=== PATIENT | female | born 1930 | race Caucasian/White ===

== ENCOUNTER 2017-11-02 09:35 | Emergency (ER) | payer MEDICARE ==
[2017-11-02] MEDS: SODIUM CHLORID 0.9% 500 ML INJ 500 ML IV (11:53)
[2017-11-02 11:56] LABS: AUTOMATED NEUTROPHIL # 7.4 TH/MM3 (1.8-7.7); BASOPHIL # 0.1 TH/MM3 (0-0.2); BASOPHIL % 0.6 % (0.0-2.0); EOSINOPHIL # 0.3 TH/MM3 (0-0.4); EOSINOPHIL % 2.6 % (0.0-4.0); HEMATOCRIT 41.8 % (35.0-46.0); HEMO FLAGS DIFF FINAL; HEMOGLOBIN 13.7 GM/DL (11.6-15.3); LYMPH % 15.4 % (9.0-44.0); LYMPHOCYTE # 1.6 TH/MM3 (1.0-4.8); MEAN CELL VOLUME 90.1 FL (80.0-100.0); MEAN CORPUSCULAR HEMOGLOBIN 29.5 PG (27.0-34.0); MEAN CORPUSCULAR HGB CONC 32.8 % (32.0-36.0); MEAN PLATELET VOLUME 8.6 FL (7.0-11.0); NEUT % 71.4 % (16.0-70.0); PLATELET COUNT 266 TH/MM3 (150-450); RED BLOOD COUNT 4.64 MIL/MM3 (4.00-5.30); RED CELL DISTRIBUTION WIDTH 13.7 % (11.6-17.2); WHITE BLOOD COUNT 10.3 TH/MM3 (4.0-11.0)
[2017-11-02 12:01] LABS: BACTERIA, URINE RARE /hpf; BLOOD, URINE TRACE (NEG); COMMENT (UR) CULT NOT INDICATED; CULTURE IF INDICATED CULT NOT INDICATED; GLUCOSE,URINE NEG (NEG); KETONE, URINE TRACE mg/dL (NEG); MUCUS URINE FEW /lpf (OCC); NITRITE,URINE NEG (NEG); PH, URINE 5.5 (5.0-8.5); SQUAMOUS EPITHELIAL CELL URINE 5 /hpf (0-5); URINE COLOR YELLOW (YELLW/STRAW); URINE LEUKOCYTE ESTERASE NEG (NEG)
[2017-11-02 12:09] LABS: BILIRUBIN, URINE NEG (NEG); INTERNATIONAL NORMALIZED RATIO 1.1 RATIO; PROTHROMBIN TIME - PATIENT 10.9 SEC (9.8-11.6)
[2017-11-02 12:11] LABS: ALBUMIN 3.6 GM/DL (3.4-5.0); ALT (GPT) 23 U/L (10-53); ANION GAP 9 MEQ/L (5-15); AST (GOT) 21 U/L (15-37); BICARBONATE 28.2 MEQ/L (21.0-32.0); BLOOD UREA NITROGEN 20 MG/DL (7-18); CALCIUM 8.5 MG/DL (8.5-10.1); CHLORIDE 104 MEQ/L (98-107); CREATININE 1.17 MG/DL (0.50-1.00); GLOMERULAR FILTRATION RATE 44 ML/MIN (>89); GLUCOSE,RANDOM 90 MG/DL (74-106); MAGNESIUM 2.1 MG/DL (1.5-2.5); POTASSIUM 3.6 MEQ/L (3.5-5.1); SODIUM (NA) 141 MEQ/L (136-145)
[2017-11-02 12:15] LABS: ALKALINE PHOSPHATASE 90 U/L (45-117); CREATINE KINASE 161 U/L (26-192); TOTAL BILIRUBIN ADULT 0.9 MG/DL (0.2-1.0); TOTAL PROTEIN 7.5 GM/DL (6.4-8.2); TROPONIN I LESS THAN 0.02 NG/ML (0.02-0.05)
[2017-11-02 12:20] LABS: B-TYPE NATRIURETIC PEPTIDE 364 PG/ML (0-100)
[2017-11-02 12:27] LABS: CKMB 4.6 NG/ML (0.5-3.6)
[2017-11-02] MEDS: FUROSEMIDE 40 MG/4 ML VIAL IV PUSH (13:18)
== END 2017-11-02 15:05 | disposition home or self-care (01) ==
LOC: NEPC 09:35
DX: K59.00 Constipation, unspecified (principal); I48.91 Unspecified atrial fibrillation; I11.0 Hypertensive heart disease with heart failure; I50.23 Acute on chronic systolic (congestive) heart failure; I25.2 Old myocardial infarction; Z79.01 Long term (current) use of anticoagulants; Z87.891 Personal history of nicotine dependence
CPT/HCPCS: 71045; 80053; 81001; 82550; 82552; 83735; 83880; 84484; 85025; 85610; 85730; 87040; 93005; 96361; 96374; 99285-25

== ENCOUNTER 2017-12-07 16:10 | Inpatient (IN) | payer MEDICARE ==
[~2017-12-07] VITALS: Ht 154.9 cm; Wt 83.7 kg
[~2017-12-07 16:10] MED LIST: ECOT81TA2 PO; FURO1TAB60 PO; FURO1TAB93 PO; METO100T PO; POTA-243 PO; XARE20TA PO
[2017-12-07 16:20] VITALS: BP 123/57; PULSE 112; RESP 24; TEMP 97.8; O2SAT 94
--- NOTE | 2017-12-07 16:41 | PD ---
HPI Chief Complaint: Respiratory Symptoms Time Seen by Provider: 16:40 Travel History International Travel<30 days: No Contact w/Intl Traveler<30days: No Traveled to known affect area: No History of Present Illness HPI 87-year-old female came to the emergency room brought by her daughter with history of progressive shortness of breath for past 2 weeks. Patient was diagnosed with congestive heart failure by her primary care weeks ago and was started on Lasix. Daughter said initially it was 120 mg a day and after few days when she started feeling better was brought down to 80 mg a by her claims coordinator. Also she was diagnosed with A. fib and was started on Xarelto 3 weeks ago. She started having dark tarry stool because of which the claims coordinator wanted her to be seen by GI specialist. She was supposed to go back and see the claims coordinator tomorrow and has a GI appointment in another couple days. However since her condition was not looking good the daughter decided to bring her to the emergency room today. After being brought from the triage when she was moved from the wheelchair to the stretcher patient started going to severe respiratory distress and started tripoding. She denies any chest pain. She was put on oxygen and after laying still for a few minutes her bleeding started to improve. No history of fever or chills. [facility] Past Medical History Narrative Medical List of her past medical, surgical, social and family history is reviewed from the nursing note. Arthritis: Yes Asthma: No Blood Disorders: No Anxiety: No Depression: No Heart Rhythm Problems: No Cancer: Yes (SKIN CANCER) Cardiac Catheterization: Yes Cardiovascular Problems: Yes High Cholesterol: Yes Chest Pain: No Congestive Heart Failure: Yes COPD: No Cerebrovascular Accident: No Diabetes: No Diminished Hearing: No GERD: Yes Genitourinary: Yes (STRESS INCONTINENCE) Headaches: Yes Hepatitis: No Hiatal Hernia: No Hypertension: Yes Neurologic: Yes Psychiatric: No Respiratory: Yes Migraines: No Myocardial Infarction: Yes (17 years ago) Seizures: No Sleep Apnea: No Ulcer: No Menopausal: Yes Past Surgical History AICD: No Appendectomy: Yes Cholecystectomy: Yes Pacemaker: No Other Surgery: Yes (WILIAN) Social History Alcohol Use: No Tobacco Use: No (QUIT 15 YEARS AGO) Substance Use: No Allergies-Medications (Allergen,Severity, Reaction): Coded Allergies: aspirin (Unverified Allergy, Severe, 12/07/17) codeine (Unverified Allergy, Severe, 12/07/17) morphine (Unverified Allergy, Severe, 12/07/17) Comments List of her allergies reviewed from the nursing note. Reported Meds & Prescriptions Reported Meds & Active Scripts Active Lasix (Furosemide) 40 Mg Tab 40 Mg PO BID Take 40 mg in the morning and 40 mg around 2 PM. Reported Potassium Chloride ER (Potassium Chloride) 20 Meq Tab 20 Meq PO BID Metoprolol Tartrate 100 Mg Tab 100 Mg PO BID Ecotrin Low Strength (Aspirin) 81 Mg Tabdr 81 Mg PO DAILY Narrative Medication List of her home medications reviewed from the nursing note. Review of Systems Except as stated in HPI: all other systems reviewed are Neg Respiratory: Positive: Shortness of Breath Gastrointestinal: Positive: Hematochezia Physical Exam Narrative GENERAL: Awake, alert, elderly, frail, significant respiratory distress SKIN: Focused skin assessment warm/dry. HEAD: Atraumatic. Normocephalic. EYES: Pupils equal and round. No scleral icterus. No injection or drainage. ENT: No nasal bleeding or discharge. Mucous membranes pink and moist. NECK: Trachea midline. No JVD. CARDIOVASCULAR: Regular rate and rhythm. No murmur appreciated. RESPIRATORY: Respiratory distress with accessory muscles of respirations use. Bibasilar crackles GASTROINTESTINAL: Abdomen soft, non-tender, nondistended. Hepatic and splenic margins not palpable. MUSCULOSKELETAL: No obvious deformities. No clubbing. No cyanosis. Right leg edema NEUROLOGICAL: Awake and alert. No obvious cranial nerve deficits. Motor grossly within normal limits. Normal speech. PSYCHIATRIC: Appropriate mood and affect; insight and judgment normal. Data Data Last Documented VS Vital Signs Date Time Temp Pulse Resp B/P (MAP) Pulse Ox O2 Delivery O2 Flow Rate FiO2 12/07/17 16:57 100 Nasal Cannula 3.00 12/07/17 16:46 98.2 75 32 129/59 (82) Orders Orders Complete Blood Count With Diff (12/07/17 16:43) Basic Metabolic Panel (Bmp) (12/07/17 16:43) B-Type Natriuretic Peptide (12/07/17 16:43) Prothrombin Time / Inr (Pt) (12/07/17 16:43) Troponin I (12/07/17 16:43) Blood Culture (12/07/17 16:43) Iv Access Insert/Monitor (12/07/17 16:43) Electrocardiogram (12/07/17 16:43) Ecg Monitoring (12/07/17 16:43) Oximetry (12/07/17 16:43) Oxygen Administration (12/07/17 16:43) Chest, Single Ap (12/07/17 16:43) Sodium Chloride 0.9% Flush (Ns Flush) (12/07/17 16:45) Type And Screen (12/07/17 16:43) Arterial Blood Gas (Abg) (12/07/17 ) Us Leg Venous Doppler (12/07/17 ) Admit Order (Ed Use Only) (12/07/17 18:40) Labs Laboratory Tests Test 12/07/17 16:55 12/07/17 17:27 White Blood Count 11.2 TH/MM3 Red Blood Count 3.41 MIL/MM3 Hemoglobin 9.8 GM/DL Hematocrit 29.6 % Mean Corpuscular Volume 86.9 FL Mean Corpuscular Hemoglobin 28.8 PG Mean Corpuscular Hemoglobin Concent 33.1 % Red Cell Distribution Width 14.0 % Platelet Count 377 TH/MM3 Mean Platelet Volume 7.6 FL Neutrophils (%) (Auto) 70.7 % Lymphocytes (%) (Auto) 14.5 % Monocytes (%) (Auto) 12.1 % Eosinophils (%) (Auto) 2.0 % Basophils (%) (Auto) 0.7 % Neutrophils # (Auto) 7.9 TH/MM3 Lymphocytes # (Auto) 1.6 TH/MM3 Monocytes # (Auto) 1.4 TH/MM3 Eosinophils # (Auto) 0.2 TH/MM3 Basophils # (Auto) 0.1 TH/MM3 CBC Comment DIFF FINAL Differential Comment Prothrombin Time 10.7 SEC Prothromb Time International Ratio 1.1 RATIO Blood Urea Nitrogen 23 MG/DL Creatinine 1.66 MG/DL Random Glucose 142 MG/DL Calcium Level 8.8 MG/DL Sodium Level 138 MEQ/L Potassium Level 3.6 MEQ/L Chloride Level 100 MEQ/L Carbon Dioxide Level 30.5 MEQ/L Anion Gap 8 MEQ/L Estimat Glomerular Filtration Rate 29 ML/MIN Troponin I LESS THAN 0.02 NG/ML B-Type Natriuretic Peptide 453 PG/ML Blood Gas Puncture Site RT RADIAL Blood Gas Patient Temperature 98.6 Blood Gas HCO3 29 mmol/L Blood Gas Base Excess 4.6 mmol/L Blood Gas Oxygen Saturation 96 % Arterial Blood pH 7.41 Arterial Blood Partial Pressure CO2 46 mmHg Arterial Blood Partial Pressure O2 111 mmHG Arterial Blood Oxygen Content 12.4 Vol % Arterial Blood Carboxyhemoglobin 1.9 % Arterial Blood Methemoglobin 0.6 % Blood Gas Hemoglobin 9.1 G/DL Oxygen Delivery Device NASAL CANNULA Blood Gas Liter Flow 3 L/M MDM Medical Decision Making Medical Screen Exam Complete: Yes Emergency Medical Condition: Yes Medical Record Reviewed: Yes Interpretation(s) Twelve-lead EKG was reviewed by me. A. fib, left bundle branch block, left axis deviation. Heart rate of 94 bpm Differential Diagnosis Congestive heart failure, ACS, non-STEMI, pneumonia, pleural effusion Narrative Course 5:54 PM blood test results are pending. ABG is within acceptable limit. Chest x-ray shows a small right pleural effusion. Patient will need to be admitted. Patient stopped taking Xarelto due to the GI bleed. I will order an ultrasound for the right lower extremity to rule out DVT. Procedures EKG Prior to Arrival: No Diagnosis Primary Impression: Respiratory distress Additional Impressions: A-fib Qualified Codes: I48.1 - Persistent atrial fibrillation Congestive heart failure Qualified Codes: I50.9 - Heart failure, unspecified Failure of outpatient treatment GI bleed Qualified Codes: K92.2 - Gastrointestinal hemorrhage, unspecified Admitting Information Admitting Physician Requests: Admit Scripts Pantoprazole (Protonix) 40 Mg Tab 40 MG PO DAILY for Ulcer Prevention, #30 TAB 0 Refills Prov: Libra Lilly 12/10/17 Oxygen tank (Oxygen tank) 1 Ea Tank LITER JOE.CANULA CONTINUOUS for HYPOXEMIA PREVENTION, #2 Oxygen Concentrator Portable Gaseous 2 L/min via Nasal Cannula Continuous For 1 month Prov: Libra Lilly 12/09/17 Oxygen (O2) (Oxygen (O2)) Device LITER JOE.CANULA CONTINUOUS for Prevent Hypoxemia, #2 Oxygen Concentrator Portable Gaseous 2 L/min via Nasal Canula Continuous For 1 month Prov: Libra Lilly 12/09/17 Walker with Front Wheels (Walker with Front Wheels) 1 Mis Mis EA .XX DIRECTED, #1 0 Refills Prov: Libra Lilly 12/09/17 Brant Mir MD Dec 07, 2017 16:41
[2017-12-07] MEDS ORDERED: SODIUM CHLORIDE 0.9% FLUSH 10 ML FLUSH IVF PRN (16:45)
[2017-12-07 16:46] VITALS: BP 129/59; PULSE 75; RESP 32; TEMP 98.2; O2SAT 100
[2017-12-07] MEDS ORDERED: ASPI-147 PO (17:02)
[2017-12-07] MEDS ORDERED: POTA-163 PO (17:02)
[2017-12-07] MEDS ORDERED: METO100T PO (17:02)
--- NOTE | 2017-12-07 17:05 | RADRPT ---
EXAM DATE/TIME: 12/07/2017 16:54 [facility] COMPARISON: CHEST SINGLE AP, November 02, 2017, 11:21. INDICATIONS : Short of breath and weakness for 2 weeks MEDICAL HISTORY : Congestive heart failure. SURGICAL HISTORY : None. ENCOUNTER: Initial ACUITY: 2 weeks PAIN SCORE: 0/10 LOCATION: Bilateral chest FINDINGS: Portable AP view of the chest demonstrates mildly enlarged cardiac silhouette. Lungs are underinflate d. There is a small right basilar pleural-parenchymal opacity. No pneumothorax is identified. Bones a nd soft tissues demonstrate no acute finding. CONCLUSION: There is a small right basilar opacity likely representing a small volume of pleural fluid and associ ated atelectasis or consolidation. Zohaib Chaney MD on December 07, 2017 at 17:03 Board Certified Radiologist. This report was verified electronically.
[2017-12-07 17:45] LABS: AUTOMATED NEUTROPHIL # 7.9 TH/MM3 (1.8-7.7); BASOPHIL # 0.1 TH/MM3 (0-0.2); BASOPHIL % 0.7 % (0.0-2.0); EOSINOPHIL # 0.2 TH/MM3 (0-0.4); HEMATOCRIT 29.6 % (35.0-46.0); HEMOGLOBIN 9.8 GM/DL (11.6-15.3); LYMPH % 14.5 % (9.0-44.0); LYMPHOCYTE # 1.6 TH/MM3 (1.0-4.8); MEAN CELL VOLUME 86.9 FL (80.0-100.0); MEAN CORPUSCULAR HEMOGLOBIN 28.8 PG (27.0-34.0); MEAN CORPUSCULAR HGB CONC 33.1 % (32.0-36.0); MEAN PLATELET VOLUME 7.6 FL (7.0-11.0); MONO % 12.1 % (0.0-8.0); MONOCYTE # 1.4 TH/MM3 (0-0.9); NEUT % 70.7 % (16.0-70.0); PLATELET COUNT 377 TH/MM3 (150-450); RED BLOOD COUNT 3.41 MIL/MM3 (4.00-5.30); WHITE BLOOD COUNT 11.2 TH/MM3 (4.0-11.0)
[2017-12-07 17:47] LABS: INTERNATIONAL NORMALIZED RATIO 1.1 RATIO; PROTHROMBIN TIME - PATIENT 10.7 SEC (9.8-11.6)
[2017-12-07 17:52] LABS: BICARBONATE 30.5 MEQ/L (21.0-32.0); BLOOD UREA NITROGEN 23 MG/DL (7-18); CALCIUM 8.8 MG/DL (8.5-10.1); CHLORIDE 100 MEQ/L (98-107); CREATININE 1.66 MG/DL (0.50-1.00); GLOMERULAR FILTRATION RATE 29 ML/MIN (>89); GLUCOSE,RANDOM 142 MG/DL (74-106); SODIUM (NA) 138 MEQ/L (136-145)
[2017-12-07 17:57] LABS: TROPONIN I LESS THAN 0.02 NG/ML (0.02-0.05)
--- NOTE | 2017-12-07 18:36 | RADRPT ---
EXAM DATE/TIME: 12/07/2017 18:06 [facility] COMPARISON: No previous studies available for comparison. INDICATIONS : Right leg swelling. MEDICAL HISTORY : Myocardial infarction. Congestive heart failure. Hypercholesterolemia. Glasses. Dizziness. Hyperte nsion. Dyspnea. Gastroesophageal reflux disease. Arthritis. Osteoporosis. SURGICAL HISTORY : Appendectomy. Cholecystectomy. Cardiac catheterization. ENCOUNTER: Initial ACUITY: 1 week PAIN SCORE: 1/10 LOCATION: Right leg. TECHNIQUE: Venous ultrasound of the leg was performed from the inguinal ligament to the proximal calf. Real-fernando e, color Doppler and spectral tracing, compression and augmentation techniques were used. FINDINGS: There is normal compressibility of the deep venous system from the inguinal region to the proximal ca lf. No echogenic clot is seen in the lumen of the common femoral, femoral, popliteal, and posterior tibial veins. There is a normal response of the venous system to proximal and distal augmentation an d respiration. CONCLUSION: Normal examination. Juan Diego Wiggins MD on December 07, 2017 at 18:34 Board Certified Radiologist. This report was verified electronically.
[2017-12-07 19:12] VITALS: BP 114/57; PULSE 107; RESP 20; O2SAT 100
[2017-12-07] MEDS ORDERED: SODIUM CHLORIDE 0.9% FLUSH 10 ML FLUSH IV FLUSH PRN (19:30)
[2017-12-07] MEDS ORDERED: BISACODYL 10 MG SUPP RECTAL PRN (19:30)
[2017-12-07] MEDS ORDERED: LACTULOSE SYRUP 20 GM/30 ML CUP PO PRN (19:30)
[2017-12-07] MEDS ORDERED: MAGNESIUM HYDROXIDE SUSP 30 ML CUP PO PRN (19:30)
[2017-12-07] MEDS ORDERED: ACETAMINOPHEN 325 MG TAB PO PRN (19:30)
[2017-12-07] MEDS ORDERED: SENNOSIDES 8.6 MG TAB PO PRN (19:30)
[2017-12-07] MEDS ORDERED: NALOXONE HCL 0.4 MG/ML AMP IV PUSH PRN (19:30)
[2017-12-07] MEDS ORDERED: FUROSEMIDE 40 MG/4 ML VIAL IV PUSH ONE (20:00)
[2017-12-07] MEDS: DOCUSATE SODIUM 50 MG/SENNA 8.6 MG TAB PO SCH (20:08)
[2017-12-07] MEDS: SODIUM CHLORIDE 0.9% FLUSH 10 ML FLUSH IV FLUSH SCH (20:09)
[2017-12-07] MEDS: METOPROLOL TARTRATE 100 MG TAB PO SCH (20:09)
[2017-12-07] MEDS: POTASSIUM CHLORIDE 20 MEQ CONTROLLED RELEASE TAB PO SCH (20:09)
[2017-12-07 20:20] VITALS: BP 106/59; PULSE 100; RESP 22; TEMP 96.2; O2SAT 100
--- NOTE | 2017-12-07 21:13 | HHI.HP ---
HPI Service [facility] Hospitalists Primary Care Physician Tano Acosta M.D. Admission Diagnosis CHF, GI bleed, outpatient treatment failure Chief Complaint: progressive SOB Travel History International Travel<30 Days: No Contact w/Intl Traveler <30 Da: No Traveled to Known Affected Are: No History of Present Illness 87-year-old female came to the emergency room brought by her daughter with history of progressive shortness of breath for past 2 weeks. Patient was diagnosed with congestive heart failure by her primary care weeks ago and was started on Lasix. Daughter said initially it was 120 mg a day and after few days when she started feeling better was brought down to 80 mg a by her rapid outsole stitcher. Also she was diagnosed with A. fib and was started on Xarelto 3 weeks ago. She started having dark tarry stool because of which the rapid outsole stitcher wanted her to be seen by GI specialist. She was supposed to go back and see the rapid outsole stitcher tomorrow and has a GI appointment in another couple days. However since her condition was not looking good the daughter decided to bring her to the emergency room today. After being brought from the triage when she was moved from the wheelchair to the stretcher patient started going to severe respiratory distress She denies any chest pain. She was put on oxygen and after laying still for a few minutes her bleeding started to improve. No history of fever or chill. Patient did receive IV lasix . Will admit and obtain cardiac evaluation did have echo in past which showed grade 1 diastolic dysfunction and at one time was on toby inhibitors. Review of Systems Cardiovascular: COMPLAINS OF: Dyspnea on Exertion Gastrointestinal: COMPLAINS OF: Bloody stools Past Family Social History Past Medical History djd,a fib,chf,hyperlipidemia,incontinence,htn [place] in past recent GI bleed Past Surgical History appendix,gallbladder Reported Medications lasix 40 bid,[id number] bid,asa 81 metoprolol 100 bid Allergies: Coded Allergies: aspirin (Unverified Allergy, Severe, 12/07/17) codeine (Unverified Allergy, Severe, 12/07/17) morphine (Unverified Allergy, Severe, 12/07/17) Social History former smoker Physical Exam Vital Signs Vital Signs Date Time Temp Pulse Resp B/P (MAP) Pulse Ox O2 Delivery O2 Flow Rate FiO2 12/07/17 20:20 96.2 100 22 106/59 (75) 100 12/07/17 19:38 12/07/17 19:12 107 20 114/57 (76) 100 Nasal Cannula 3.00 12/07/17 16:57 100 Nasal Cannula 3.00 12/07/17 16:57 100 Nasal Cannula 2.00 12/07/17 16:46 98.2 75 32 129/59 (82) 100 Room Air 12/07/17 16:20 97.8 112 24 123/57 (79) 94 Physical Exam GENERAL: This is a well-nourished, well-developed patient, in no apparent distress. SKIN: No rashes, ecchymoses or lesions. Cool and dry. HEAD: Atraumatic. Normocephalic. No temporal or scalp tenderness. EYES: Pupils equal round and reactive. Extraocular motions intact. No scleral icterus. No injection or drainage. ENT: Nose without bleeding, purulent drainage or septal hematoma. Throat without erythema, tonsillar hypertrophy or exudate. Uvula midline. Airway patent. NECK: Trachea midline. No JVD or lymphadenopathy. Supple, nontender, no meningeal signs. CARDIOVASCULAR IRREG rate and rhythm without murmurs, gallops, or rubs. RESPIRATORY: Decrease breath sounds rales bases GASTROINTESTINAL: Abdomen soft, non-tender, nondistended. No hepato-splenomegaly , or palpable masses. No guarding. MUSCULOSKELETAL: Extremities without clubbing, cyanosis, or edema. No joint tenderness, effusion, or edema noted. No calf tenderness. Negative Homans sign bilaterally. NEUROLOGICAL: Awake and alert. Cranial nerves II through XII intact. Motor and sensory grossly within normal limits. Five out of 5 muscle strength in all muscle groups. Normal speech. Laboratory Laboratory Tests Test 12/07/17 16:55 12/07/17 17:27 White Blood Count 11.2 Red Blood Count 3.41 Hemoglobin 9.8 Hematocrit 29.6 Mean Corpuscular Volume 86.9 Mean Corpuscular Hemoglobin 28.8 Mean Corpuscular Hemoglobin Concent 33.1 Red Cell Distribution Width 14.0 Platelet Count 377 Mean Platelet Volume 7.6 Neutrophils (%) (Auto) 70.7 Lymphocytes (%) (Auto) 14.5 Monocytes (%) (Auto) 12.1 Eosinophils (%) (Auto) 2.0 Basophils (%) (Auto) 0.7 Neutrophils # (Auto) 7.9 Lymphocytes # (Auto) 1.6 Monocytes # (Auto) 1.4 Eosinophils # (Auto) 0.2 Basophils # (Auto) 0.1 CBC Comment DIFF FINAL Differential Comment Prothrombin Time 10.7 Prothromb Time International Ratio 1.1 Blood Urea Nitrogen 23 Creatinine 1.66 Random Glucose 142 Calcium Level 8.8 Sodium Level 138 Potassium Level 3.6 Chloride Level 100 Carbon Dioxide Level 30.5 Anion Gap 8 Estimat Glomerular Filtration Rate 29 Troponin I LESS THAN 0.02 B-Type Natriuretic Peptide 453 Blood Gas Puncture Site RT RADIAL Blood Gas Patient Temperature 98.6 Blood Gas HCO3 29 Blood Gas Base Excess 4.6 Blood Gas Oxygen Saturation 96 Arterial Blood pH 7.41 Arterial Blood Partial Pressure CO2 46 Arterial Blood Partial Pressure O2 111 Arterial Blood Oxygen Content 12.4 Arterial Blood Carboxyhemoglobin 1.9 Arterial Blood Methemoglobin 0.6 Blood Gas Hemoglobin 9.1 Oxygen Delivery Device NASAL CANNULA Blood Gas Liter Flow 3 Date/Time Source Procedure Growth Status 12/07/17 17:00 Blood Peripheral Aerobic Blood Culture Pending Received 12/07/17 17:00 Blood Peripheral Anaerobic Blood Culture Pending Received Result Diagram: 12/07/17 1655 12/07/17 1655 Imaging cxr mild pleural effusion bnp >400 Course given 40 iv lasix Caprini VTE Risk Assessment Caprini VTE Risk Assessment: Mod/High Risk (score >= 2) Caprini Risk Assessment Model Point Value = 1 Point Value = 2 Point Value = 3 Point Value = 5 Age 41-60 Minor surgery BMI > 25 kg/m2 Swollen legs Varicose veins or History of unexplained or recurrent spontaneous Oral contraceptives or hormone replacement Sepsis (< 1 month) Serious lung disease, including pneumonia (< 1 month) Abnormal pulmonary function Acute myocardial infarction Congestive heart failure (< 1 month) History of inflammatory bowel disease Medical patient at bed rest Age 61-74 Arthroscopic surgery Major open surgery (> 45 min) Laparoscopic surgery (> 45 min) Malignancy Confined to bed (> 72 hours) Immobilizing plaster cast Central venous access Age >= 75 History of VTE Family history of VTE Factor V Leiden Prothrombin [id number] Lupus anticoagulant Anticardiolipin antibodies Elevated serum homocysteine Heparin-induced thrombocytopenia Other congenital or acquired thrombophilia Stroke (< 1 month) Elective arthroplasty Hip, pelvis, or leg fracture Acute spinal cord injury (< 1 month) Prophylaxis Regimen Total Risk Factor Score Risk Level Prophylaxis Regimen 0-1 Low Early ambulation 2 Moderate Order ONE of the following: *Sequential Compression Device (SCD) *Heparin 5000 units SQ BID 3-4 Higher Order ONE of the following medications: *Heparin 5000 units SQ TID *Enoxaparin/Lovenox 40 mg SQ daily (WT < 150 kg, CrCl > 30 mL/min) *Enoxaparin/Lovenox 30 mg SQ daily (WT < 150 kg, CrCl > 10-29 mL/min) *Enoxaparin/Lovenox 30 mg SQ BID (WT < 150 kg, CrCl > 30 mL/min) AND/OR *Sequential Compression Device (SCD) 5 or more Highest Order ONE of the following medications: *Heparin 5000 units SQ TID (Preferred with Epidurals) *Enoxaparin/Lovenox 40 mg SQ daily (WT < 150 kg, CrCl > 30 mL/min) *Enoxaparin/Lovenox 30 mg SQ daily (WT < 150 kg, CrCl > 10-29 mL/min) *Enoxaparin/Lovenox 30 mg SQ BID (WT < 150 kg, CrCl > 30 mL/min) AND *Sequential Compression Device (SCD) Assessment and Plan Problem List: (1) CHF (congestive heart failure) ICD Codes: I50.9 - Congestive heart failure Status: Chronic Plan: will continue lasix 40 iv bid for now ask for cardiology evaluation review old records as to previous meds and if recent 2d echo (2) GI bleed ICD Codes: K92.2 - Gastrointestinal hemorrhage, unspecified Status: Acute Plan: may have been related to use of xarelto which was stoped does have some anemia ask GI to evaluate (3) A-fib ICD Codes: I48.91 - Unspecified atrial fibrillation Status: Chronic Plan: continue b cole Assessment and Plan further plan as case develops Code Status full Discussed Condition With patient Physician Certification 2 Midnight Certification Type: Admission for Inpatient Services Order for Inpatient Services The services are ordered in accordance with Medicare regulations or non- Medicare payer requirements, as applicable. In the case of services not specified as inpatient-only, they are appropriately provided as inpatient services in accordance with the 2-midnight benchmark. Estimated LOS (days): 2 2 days is the estimated time the patient will need to remain in the hospital, assuming treatment plan goals are met and no additional complications. Post-Hospital Plan: Not yet determined Problem Qualifiers (1) GI bleed: Qualified Codes: K92.2 - Gastrointestinal hemorrhage, unspecified (2) A-fib: Qualified Codes: I48.1 - Persistent atrial fibrillation Ricardo Manriquez MD Dec 07, 2017 21:13
[2017-12-07] MEDS: PANTOPRAZOLE SODIUM 40 MG VIAL IV PUSH SCH (22:42)
[2017-12-08] VITALS (12 sets, daily range): BP systolic 102–117; BP diastolic 57–70; PULSE 66–117; RESP 16–21; TEMP 96.6–98.4; O2SAT 94–100
[2017-12-08 07:42] LABS: AUTOMATED NEUTROPHIL # 6.5 TH/MM3 (1.8-7.7); BASOPHIL # 0.1 TH/MM3 (0-0.2); BASOPHIL % 0.6 % (0.0-2.0); EOSINOPHIL # 0.2 TH/MM3 (0-0.4); EOSINOPHIL % 2.2 % (0.0-4.0); HEMATOCRIT 27.7 % (35.0-46.0); HEMOGLOBIN 9.1 GM/DL (11.6-15.3); LYMPH % 15.1 % (9.0-44.0); LYMPHOCYTE # 1.4 TH/MM3 (1.0-4.8); MEAN CELL VOLUME 86.1 FL (80.0-100.0); MEAN CORPUSCULAR HEMOGLOBIN 28.5 PG (27.0-34.0); MEAN PLATELET VOLUME 7.7 FL (7.0-11.0); MONO % 13.6 % (0.0-8.0); MONOCYTE # 1.3 TH/MM3 (0-0.9); NEUT % 68.5 % (16.0-70.0); PLATELET COUNT 342 TH/MM3 (150-450); RED BLOOD COUNT 3.21 MIL/MM3 (4.00-5.30); RED CELL DISTRIBUTION WIDTH 13.9 % (11.6-17.2); WHITE BLOOD COUNT 9.4 TH/MM3 (4.0-11.0)
[2017-12-08] MEDS: RESP: ALBUTEROL 2.5 MG/IPRATROPIUM 0.5 MG NEB (SCH) NEB ×4 (08:00→19:39)
[2017-12-08 08:04] LABS: BICARBONATE 34.2 MEQ/L (21.0-32.0); CALCIUM 8.6 MG/DL (8.5-10.1); CREATININE 1.42 MG/DL (0.50-1.00)
[2017-12-08] MEDS ORDERED: FUROSEMIDE 40 MG/4 ML VIAL IV PUSH SCH (09:00)
[2017-12-08] MEDS: METOPROLOL TARTRATE 100 MG TAB PO SCH ×2 (10:08→21:46)
[2017-12-08] MEDS: DOCUSATE SODIUM 50 MG/SENNA 8.6 MG TAB PO SCH ×2 (10:09→20:07)
[2017-12-08] MEDS: POTASSIUM CHLORIDE 20 MEQ CONTROLLED RELEASE TAB PO SCH ×2 (10:09→21:00)
[2017-12-08] MEDS: SODIUM CHLORIDE 0.9% FLUSH 10 ML FLUSH IV FLUSH SCH ×2 (10:10→21:00)
--- NOTE | 2017-12-08 10:24 | PD.CONS ---
HPI History of Present Illness This is a 87 year old lady with AF on xarelto, CHF who presented with worsening SOB, red blood in stool, black tarry stool. She has been constipated and req; uired a digital disimpaction 11/06/17 and says after that she noticed bright red blood in the stool. She was recently started on xarelto and had black tarry stools for the last 3 weeks. She has been off the xarelto now for >2 days. She has no prior hx GIB, no n/v, no abd pain. Last colonoscopy "years ago" off [place] and was "ok." She has n3ever had an EGD. (Niharika Wilson) PFSH Past Medical History CHF AF CA Past Surgical History cholecystectomy (Niharika Wilson) Coded Allergies: aspirin (Unverified Allergy, Severe, 12/07/17) codeine (Unverified Allergy, Severe, 12/07/17) morphine (Unverified Allergy, Severe, 12/07/17) Family History CA Social History occasional ETOH, quit smoking 17y ago, denies illicit drug use. (Niharika Wilson) Review of Systems Constitutional: COMPLAINS OF: Fatigue, DENIES: Fever Eyes: DENIES: Blurred vision Ears, nose, mouth, throat: DENIES: Hearing loss Respiratory: COMPLAINS OF: Shortness of breath, DENIES: Cough Cardiovascular: DENIES: Chest pain Gastrointestinal: COMPLAINS OF: Black stools, Bloody stools, Constipation, DENIES: Abdominal pain, Nausea, Vomiting Genitourinary: DENIES: Hematuria Musculoskeletal: DENIES: Muscle aches Integumentary: DENIES: Abnormal pigmentation Immunologic/allergic: DENIES: Eczema Neurologic: DENIES: Abnormal gait Psychiatric: DENIES: Confusion (Niharika Wilson) GI Exam Vitals I&O Vital Signs Date Time Temp Pulse Resp B/P (MAP) Pulse Ox O2 Delivery O2 Flow Rate FiO2 12/08/17 08:00 97.9 116 17 102/58 (73) 98 12/08/17 05:12 96.9 87 21 109/59 (76) 100 12/08/17 03:54 99 12/08/17 01:45 66 12/08/17 00:00 97.3 68 21 110/70 (83) 100 12/07/17 20:20 96.2 100 22 106/59 (75) 100 12/07/17 19:38 12/07/17 19:12 107 20 114/57 (76) 100 Nasal Cannula 3.00 12/07/17 16:57 100 Nasal Cannula 3.00 12/07/17 16:57 100 Nasal Cannula 2.00 12/07/17 16:46 98.2 75 32 129/59 (82) 100 Room Air 12/07/17 16:20 97.8 112 24 123/57 (79) 94 I/O 12/07/17 12/07/17 12/07/17 12/08/17 12/08/17 12/08/17 07:00 15:00 23:00 07:00 15:00 23:00 Intake Total 180 ml Balance 180 ml Intake Oral 180 ml # Voids 4 # Bowel Movements 0 Imaging Last Impressions Chest X-Ray 12/07/17 1643 Signed Impressions: Service Date/Time: Thursday, December 07, 2017 16:54 - CONCLUSION: There is a small right basilar opacity likely representing a small volume of pleural fluid and associated atelectasis or consolidation. Zohaib Chaney MD Lower Extremity Ultrasound 12/07/17 0000 Signed Impressions: Service Date/Time: Thursday, December 07, 2017 18:06 - CONCLUSION: Normal examination. Juan Diego Wiggins MD Laboratory Test 12/07/17 16:55 12/07/17 17:27 12/08/17 05:55 12/08/17 08:28 White Blood Count 11.2 TH/MM3 9.4 TH/MM3 Red Blood Count 3.41 MIL/MM3 3.21 MIL/MM3 Hemoglobin 9.8 GM/DL 9.1 GM/DL Hematocrit 29.6 % 27.7 % Mean Corpuscular Volume 86.9 FL 86.1 FL Mean Corpuscular Hemoglobin 28.8 PG 28.5 PG Mean Corpuscular Hemoglobin Concent 33.1 % 33.0 % Red Cell Distribution Width 14.0 % 13.9 % Platelet Count 377 TH/MM3 342 TH/MM3 Mean Platelet Volume 7.6 FL 7.7 FL Neutrophils (%) (Auto) 70.7 % 68.5 % Lymphocytes (%) (Auto) 14.5 % 15.1 % Monocytes (%) (Auto) 12.1 % 13.6 % Eosinophils (%) (Auto) 2.0 % 2.2 % Basophils (%) (Auto) 0.7 % 0.6 % Neutrophils # (Auto) 7.9 TH/MM3 6.5 TH/MM3 Lymphocytes # (Auto) 1.6 TH/MM3 1.4 TH/MM3 Monocytes # (Auto) 1.4 TH/MM3 1.3 TH/MM3 Eosinophils # (Auto) 0.2 TH/MM3 0.2 TH/MM3 Basophils # (Auto) 0.1 TH/MM3 0.1 TH/MM3 CBC Comment DIFF FINAL DIFF FINAL Differential Comment Prothrombin Time 10.7 SEC Prothromb Time International Ratio 1.1 RATIO Blood Urea Nitrogen 23 MG/DL 22 MG/DL Creatinine 1.66 MG/DL 1.42 MG/DL Random Glucose 142 MG/DL 96 MG/DL Calcium Level 8.8 MG/DL 8.6 MG/DL Sodium Level 138 MEQ/L 141 MEQ/L Potassium Level 3.6 MEQ/L 3.7 MEQ/L Chloride Level 100 MEQ/L 102 MEQ/L Carbon Dioxide Level 30.5 MEQ/L 34.2 MEQ/L Anion Gap 8 MEQ/L 5 MEQ/L Estimat Glomerular Filtration Rate 29 ML/MIN 35 ML/MIN Troponin I LESS THAN 0.02 NG/ML B-Type Natriuretic Peptide 453 PG/ML 446 PG/ML Blood Gas Puncture Site RT RADIAL Blood Gas Patient Temperature 98.6 Blood Gas HCO3 29 mmol/L Blood Gas Base Excess 4.6 mmol/L Blood Gas Oxygen Saturation 96 % Arterial Blood pH 7.41 Arterial Blood Partial Pressure CO2 46 mmHg Arterial Blood Partial Pressure O2 111 mmHG Arterial Blood Oxygen Content 12.4 Vol % Arterial Blood Carboxyhemoglobin 1.9 % Arterial Blood Methemoglobin 0.6 % Blood Gas Hemoglobin 9.1 G/DL Oxygen Delivery Device NASAL CANNULA Blood Gas Liter Flow 3 L/M D-Dimer Quantitative (PE/DVT) 1.30 MG/L FEU Date/Time Source Procedure Growth Status 12/07/17 17:00 Blood Peripheral Aerobic Blood Culture Pending Received 12/07/17 17:00 Blood Peripheral Anaerobic Blood Culture Pending Received Physical Examination HEENT: PERRL; normocephalic; atraumatic; no jaundice. CHEST: CTA CARDIAC: irregular HR ABDOMEN: Soft, nondistended, nontender; no hepatosplenomegaly; bowel sounds are present in all four quadrants. EXTREMITIES: No clubbing, cyanosis, or edema. SKIN: Normal; no rash; no jaundice. CAP CUTTER: No focal deficits; alert and oriented times three. (Niharika Wilson) Assessment and Plan Plan ASSESSMENT - anemia, black tarry stool- symptomatic. normocytic. recently started on xarelto and had black tarry stool 3 weeks, some red blood in stool after a disimpaction. last had xarelto >3 days ago. no prior hx GIB. unclear when last colonoscopy was but was normal per pt. PLAN - EGD and colonoscopy in am - obtain consent - clears today - NPO after midnight - GoLytely prep - monitor HH - notify GI of active bleeding - further recs to follow pt seen by myself and Dr Head and this note is written on his behalf (Niharika Wilson) Plan She was seen and examined, agree with above-noted, possible upper GI bleed but cannot rule out bleed from the colon so we'll plan on doing upper endoscopy and colonoscopy tomorrow and patient agreeable to have it done (Hubert Head MD) Niharika Wilson Dec 08, 2017 10:24 Hubert Head MD Dec 09, 2017 09:16
--- NOTE | 2017-12-08 11:18 | HHI.PR ---
Subjective Remarks Pt feels that her SOB is improved since getting the IV Lasix She is on 3L of supplemental O2 currently LE edema is improving Objective Vitals Vital Signs Date Time Temp Pulse Resp B/P (MAP) Pulse Ox O2 Delivery O2 Flow Rate FiO2 12/08/17 08:00 97.9 116 17 102/58 (73) 98 12/08/17 05:12 96.9 87 21 109/59 (76) 100 12/08/17 03:54 99 12/08/17 01:45 66 12/08/17 00:00 97.3 68 21 110/70 (83) 100 12/07/17 20:20 96.2 100 22 106/59 (75) 100 12/07/17 19:38 12/07/17 19:12 107 20 114/57 (76) 100 Nasal Cannula 3.00 12/07/17 16:57 100 Nasal Cannula 3.00 12/07/17 16:57 100 Nasal Cannula 2.00 12/07/17 16:46 98.2 75 32 129/59 (82) 100 Room Air 12/07/17 16:20 97.8 112 24 123/57 (79) 94 Result Diagram: 12/08/17 0555 12/08/17 0555 Other Results Laboratory Tests Test 12/07/17 16:55 12/07/17 17:27 12/08/17 05:55 12/08/17 08:28 White Blood Count 11.2 TH/MM3 9.4 TH/MM3 Red Blood Count 3.41 MIL/MM3 3.21 MIL/MM3 Hemoglobin 9.8 GM/DL 9.1 GM/DL Hematocrit 29.6 % 27.7 % Mean Corpuscular Volume 86.9 FL 86.1 FL Mean Corpuscular Hemoglobin 28.8 PG 28.5 PG Mean Corpuscular Hemoglobin Concent 33.1 % 33.0 % Red Cell Distribution Width 14.0 % 13.9 % Platelet Count 377 TH/MM3 342 TH/MM3 Mean Platelet Volume 7.6 FL 7.7 FL Neutrophils (%) (Auto) 70.7 % 68.5 % Lymphocytes (%) (Auto) 14.5 % 15.1 % Monocytes (%) (Auto) 12.1 % 13.6 % Eosinophils (%) (Auto) 2.0 % 2.2 % Basophils (%) (Auto) 0.7 % 0.6 % Neutrophils # (Auto) 7.9 TH/MM3 6.5 TH/MM3 Lymphocytes # (Auto) 1.6 TH/MM3 1.4 TH/MM3 Monocytes # (Auto) 1.4 TH/MM3 1.3 TH/MM3 Eosinophils # (Auto) 0.2 TH/MM3 0.2 TH/MM3 Basophils # (Auto) 0.1 TH/MM3 0.1 TH/MM3 CBC Comment DIFF FINAL DIFF FINAL Differential Comment Prothrombin Time 10.7 SEC Prothromb Time International Ratio 1.1 RATIO Blood Urea Nitrogen 23 MG/DL 22 MG/DL Creatinine 1.66 MG/DL 1.42 MG/DL Random Glucose 142 MG/DL 96 MG/DL Calcium Level 8.8 MG/DL 8.6 MG/DL Sodium Level 138 MEQ/L 141 MEQ/L Potassium Level 3.6 MEQ/L 3.7 MEQ/L Chloride Level 100 MEQ/L 102 MEQ/L Carbon Dioxide Level 30.5 MEQ/L 34.2 MEQ/L Anion Gap 8 MEQ/L 5 MEQ/L Estimat Glomerular Filtration Rate 29 ML/MIN 35 ML/MIN Troponin I LESS THAN 0.02 NG/ML B-Type Natriuretic Peptide 453 PG/ML 446 PG/ML Blood Gas Puncture Site RT RADIAL Blood Gas Patient Temperature 98.6 Blood Gas HCO3 29 mmol/L Blood Gas Base Excess 4.6 mmol/L Blood Gas Oxygen Saturation 96 % Arterial Blood pH 7.41 Arterial Blood Partial Pressure CO2 46 mmHg Arterial Blood Partial Pressure O2 111 mmHG Arterial Blood Oxygen Content 12.4 Vol % Arterial Blood Carboxyhemoglobin 1.9 % Arterial Blood Methemoglobin 0.6 % Blood Gas Hemoglobin 9.1 G/DL Oxygen Delivery Device NASAL CANNULA Blood Gas Liter Flow 3 L/M D-Dimer Quantitative (PE/DVT) 1.30 MG/L FEU Imaging Last Impressions Chest X-Ray 12/07/17 1643 Signed Impressions: Service Date/Time: Thursday, December 07, 2017 16:54 - CONCLUSION: There is a small right basilar opacity likely representing a small volume of pleural fluid and associated atelectasis or consolidation. Zohaib Chaney MD Lower Extremity Ultrasound 12/07/17 0000 Signed Impressions: Service Date/Time: Thursday, December 07, 2017 18:06 - CONCLUSION: Normal examination. Juan Diego Wiggins MD Objective Remarks General: NAD, AAOx3 Chest: CTA Cardiac: Regular Abd: +BS, soft ND/NT Ext: Mild bilateral LE edema A/P Problem List: (1) CHF (congestive heart failure) ICD Codes: I50.9 - Congestive heart failure Status: Chronic Plan: - Pt is an 87 y/o female with systolic/diastolic CHF with EF 35-45%, paroxysmal atrial fibrillation recently start on Xarelto, HTN, COPD, and CAD - Pt reported to the ED with history of progressive shortness of breath for past 2 weeks. - Pt takes Lasix 40mg po BID as an outpt. This is a decreased dose compared to what she had been on which was 80mg in AM and 40mg in PM. - last 2D echo (11/16/15) --> poor quality, EF 35-45%, diffuse hypokinesis, Grade I diastolic dysfunction - Her SOB worsened in the ED which improved with supplemental O2 - Pt was started on IV Lasix in the ED - CXR at admission noted there is a small right basilar opacity likely representing a small volume of pleural fluid and associated atelectasis or consolidation. - LE US was negative for DVT - Her BNP has been in the 400s - BP has been low with systolic in the 100's - Change IV Lasix to 40mg PO BID - Monitor renal function closely - Repeat CXR in AM - Repeat BNP in AM - 2D echo is pending. - Cardiology was consulted at admission. (2) GI bleed ICD Codes: K92.2 - Gastrointestinal hemorrhage, unspecified Status: Acute Plan: - Pt has had some noted GIB for a few weeks that began after she was disimpacted in the ED on 11/02/17 - Her H/H has decreased from October 2017 from Hgb 13 to 9 at admission - GI consulted - Pt planned for EGD/colonoscopy tomorrow - Xarelto is held (3) A-fib ICD Codes: I48.91 - Unspecified atrial fibrillation Status: Chronic Plan: - Also she was diagnosed with paroxysmal A. fib and was started on Xarelto in October 2017. - She started having dark tarry stool and some red blood a few weeks ago and was supposed to be seen by GI as an outpt. - The Xarelto has reportedly been on hold - Cont. Metoprolol 100mg po BID - child monitor Assessment and Plan Patient examined. Assessment and plan formulated with Lisa Chavez PA-C. I agree with the above. Problem Qualifiers (1) GI bleed: Qualified Codes: K92.2 - Gastrointestinal hemorrhage, unspecified (2) A-fib: Qualified Codes: I48.1 - Persistent atrial fibrillation Lisa Chavez Dec 08, 2017 11:18 Braden Whipple DO Dec 13, 2017 10:31
--- NOTE | 2017-12-08 15:11 | RADRPT ---
EXAM DATE/TIME: 12/08/2017 13:10 [facility] COMPARISON: CHEST SINGLE AP, December 07, 2017, 16:54. INDICATIONS : Cough, short of breath. MEDICAL HISTORY : Congestive heart failure. SURGICAL HISTORY : None. ENCOUNTER: Initial ACUITY: 2 weeks PAIN SCORE: 0/10 LOCATION: Bilateral chest FINDINGS: Bilateral decubitus views of the chest demonstrate a small right pleural effusion. Left lung clear. CONCLUSION: Layering right pleural effusion. Larry Mcgowan MD on December 08, 2017 at 15:10 Board Certified Radiologist. This report was verified electronically.
[2017-12-08] MEDS ORDERED: PEG (High)/E-LYTE SOLN 4000 ML BTL PO ONE (16:30)
[2017-12-08] MEDS: FUROSEMIDE 40 MG TAB PO SCH (17:02)
[2017-12-08] MEDS: PANTOPRAZOLE SODIUM 40 MG VIAL IV PUSH SCH (21:47)
--- NOTE | 2017-12-08 22:38 | EKG ---
Date Performed: 12/07/2017 Time Performed: 18:04:21 PTAGE: 87 years EKG: ATRIAL FIBRILLATION MARKED LEFT AXIS DEVIATION LEFT BUNDLE BRANCH BLOCK ABNORMAL ECG PREVIOUS TRACING : 11/02/2017 11.48 Since the prior tracing, there has been no significant salcedo DOCTOR: Mathew Ibarra Interpretating Date/Time 12/08/2017 22:36:09
[2017-12-09] VITALS (8 sets, daily range): BP systolic 100–123; BP diastolic 52–67; PULSE 69–112; RESP 15–20; TEMP 96.4–97.2; O2SAT 97–100
[2017-12-09] MEDS ORDERED: CHLORHEXIDINE GLUCONATE 2 % 1 PACK (2 CLOTHS) TOPICAL PRN (01:30)
[2017-12-09] MEDS ORDERED: LACTATED RINGER'S 1000 ML IV PRN (01:30)
[2017-12-09] MEDS ORDERED: SODIUM CHLORID 0.9% 500 ML IV PRN (01:30)
[2017-12-09] MEDS ORDERED: POVIDONE IODINE 5% (ANTISEPSIS KIT) 4 APPLICATIONS EACH NARE PRN (01:30)
[2017-12-09] MEDS: SODIUM CHLORIDE 0.9% FLUSH 10 ML FLUSH IV FLUSH SCH ×2 (07:50→21:43)
[2017-12-09] MEDS: DOCUSATE SODIUM 50 MG/SENNA 8.6 MG TAB PO SCH ×2 (07:54→21:00)
[2017-12-09] MEDS: METOPROLOL TARTRATE 100 MG TAB PO SCH ×3 (07:54→21:42)
[2017-12-09] MEDS: POTASSIUM CHLORIDE 20 MEQ CONTROLLED RELEASE TAB PO SCH ×3 (07:54→21:41)
[2017-12-09] MEDS: FUROSEMIDE 40 MG TAB PO SCH ×3 (07:54→18:13)
[2017-12-09] MEDS: RESP: ALBUTEROL 2.5 MG/IPRATROPIUM 0.5 MG NEB (SCH) NEB ×3 (08:00→19:12)
--- NOTE | 2017-12-09 09:22 | PD.PROCEDR ---
GI Procedure PROCEDURE PERFORMED Upper endoscopy with biopsy Colonoscopy with ablation of AVMs, ablation of polyps, snare polypectomy INDICATION FOR PROCEDURE Anemia, black stool PROCEDURE: The procedure, risks and benefits were discussed with Ms. Veloz and informed consent was obtained. Anesthesia sedated her with Diprivan. She was placed in the left lateral decubitus position. EGD: The Pentax videoscope was introduced through the oropharynx and advanced to the second portion of the duodenum under direct visualization. Retroflexion was performed in the stomach. Biopsy from the antrum was done Colonoscopy: The Pentax videoscope was introduced through the rectum and advanced to cecum. Retroflexion was performed in the rectum. 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
[2017-12-09] MEDS ORDERED: DO NOT ADM ANY ANTICOAGULANT DRUGS PRN (09:23)
--- NOTE | 2017-12-09 09:23 | HHI.GIFU ---
Subjective Remarks Patient laying in bed, seems to be comfortable, tolerated prep, no sign of active bleeding today Objective Vitals I&O Vital Signs Date Time Temp Pulse Resp B/P (MAP) Pulse Ox O2 Delivery O2 Flow Rate FiO2 12/09/17 08:00 96.4 112 15 108/61 (77) 97 12/09/17 04:41 96.9 92 17 100/52 (68) 98 12/09/17 03:55 78 12/09/17 00:09 97 12/09/17 00:00 96.5 89 20 114/53 (73) 98 12/08/17 20:23 96.6 109 18 102/64 (77) 94 12/08/17 19:55 117 12/08/17 19:39 98 Nasal Cannula 3.00 12/08/17 16:00 98.1 89 18 117/68 (84) 98 12/08/17 12:00 98.4 95 16 113/57 (75) 97 12/08/17 11:17 99 Nasal Cannula 3.00 I/O 12/08/17 12/08/17 12/08/17 12/09/17 12/09/17 12/09/17 07:00 15:00 23:00 07:00 15:00 23:00 Intake Total 180 ml 240 ml Balance 180 ml 240 ml Intake Oral 180 ml 240 ml # Voids 4 5 5 # Bowel Movements 0 1 5 Laboratory Date/Time Source Procedure Growth Status 12/07/17 17:00 Blood Peripheral Aerobic Blood Culture - Preliminary NO GROWTH IN 1 DAY Resulted 12/07/17 17:00 Blood Peripheral Anaerobic Blood Culture - Preliminary NO GROWTH IN 1 DAY Resulted Physical Exam HEENT: Pupils round and reactive to light; normocephalic; atraumatic; no jaundice. Throat is clear. NECK: Neck is supple, no JVD, no lymphadenopathy. CHEST: Chest is clear to auscultation and percussion. CARDIAC: Regular rate and rhythm with no murmur gallop or rubs. ABDOMEN: Soft, nondistended, nontender; no hepatosplenomegaly; bowel sounds are present in all four quadrants. EXTREMITIES: No clubbing, cyanosis, or edema. SKIN: Normal; no rash; no jaundice. FLEET ADMINISTRATIVE ASSISTANT: No focal deficits; alert and oriented times three. 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
[2017-12-09] MEDS ORDERED: PHENYLEPHRINE HCL 10 MG/ML VIAL ONE (09:36)
--- NOTE | 2017-12-09 10:57 | RADRPT ---
EXAM DATE/TIME: 12/09/2017 10:45 [facility] COMPARISON: CHEST SINGLE AP, December 07, 2017, 16:54. CHEST BILATERAL DECUBITUS, December 08, 2017, 13:10. INDICATIONS : Cough and shortness of breath. MEDICAL HISTORY : Myocardial infarction. Congestive heart failure. Hypercholesterolemia. Dizziness. Hypertension. Dyspn ea. Gastroesophageal reflux disease. Arthritis. Osteoporosis. SURGICAL HISTORY : Appendectomy. Cholecystectomy. Cardiac catheterization. ENCOUNTER: Subsequent ACUITY: 2 weeks PAIN SCORE: 0/10 LOCATION: Bilateral chest FINDINGS: Moderate interstitial edema remains with the small persistent right pleural effusion. There is mild cardiomegaly. Minimal consolidative changes right base. The portion of the bony skeleton visualized is unremarkable. CONCLUSION: Persistent mild interstitial edema Minimal consolidative changes right base improved in the interval. Geremias Ritchie MD FACR on December 09, 2017 at 10:54 Board Certified Radiologist. This report was verified electronically.
[2017-12-09] MEDS ORDERED: REGADENOSON INJ 0.4 MG/5 ML SYR ONE (11:45)
[2017-12-09] MEDS ORDERED: PROPOFOL 200 MG/20 ML AMP IV ONE (12:00)
[2017-12-09] MEDS ORDERED: PHENYLEPH/NS 1000 MCG/10 ML SYR IV ONE (12:00)
[2017-12-09] MEDS ORDERED: LIDOCAINE HCL 1% PF 5 ML SYRINGE OTHER ONE (12:00)
--- NOTE | 2017-12-09 12:41 | HHI.PR ---
Subjective Remarks No new complaints. Less SOB from admission. Objective Vitals Vital Signs Date Time Temp Pulse Resp B/P (MAP) Pulse Ox O2 Delivery O2 Flow Rate FiO2 12/09/17 09:37 97.0 99 16 102/52 (69) 96 12/09/17 08:00 96.4 112 15 108/61 (77) 97 12/09/17 04:41 96.9 92 17 100/52 (68) 98 12/09/17 03:55 78 12/09/17 00:09 97 12/09/17 00:00 96.5 89 20 114/53 (73) 98 12/08/17 20:23 96.6 109 18 102/64 (77) 94 12/08/17 19:55 117 12/08/17 19:39 98 Nasal Cannula 3.00 12/08/17 16:00 98.1 89 18 117/68 (84) 98 12/09/17 12/09/17 12/10/17 15:00 23:00 07:00 Intake Total 500 ml Balance 500 ml Other 500 ml Result Diagram: 12/08/17 0555 12/08/17 0555 Imaging Last Impressions Chest X-Ray 12/09/17 0800 Signed Impressions: Service Date/Time: Saturday, December 09, 2017 10:45 - CONCLUSION: Persistent mild interstitial edema Minimal consolidative changes right base improved in the interval. Geremias Ritchie MD FACR Lower Extremity Ultrasound 12/07/17 0000 Signed Impressions: Service Date/Time: Thursday, December 07, 2017 18:06 - CONCLUSION: Normal examination. Juan Diego Wiggins MD Objective Remarks General: NAD, AAOx3 Chest: CTA Cardiac: Regular Abd: +BS, soft ND/NT Ext: Mild bilateral LE edema A/P Problem List: (1) CHF (congestive heart failure) ICD Codes: I50.9 - Congestive heart failure Status: Chronic Plan: - Pt is an 87 y/o female with systolic/diastolic CHF with EF 35-45%, paroxysmal atrial fibrillation recently start on Xarelto, HTN, COPD, and CAD - Pt reported to the ED with history of progressive shortness of breath for past 2 weeks. - Pt takes Lasix 40mg po BID as an outpt. This is a decreased dose compared to what she had been on which was 80mg in AM and 40mg in PM. - last 2D echo (11/16/15) --> poor quality, EF 35-45%, diffuse hypokinesis, Grade I diastolic dysfunction - Her SOB worsened in the ED which improved with supplemental O2 - Pt was started on IV Lasix in the ED - CXR at admission noted there is a small right basilar opacity likely representing a small volume of pleural fluid and associated atelectasis or consolidation. - CXR (12/09) --> mild volume overload - LE US was negative for DVT - Her BNP has been in the 400s - BP has been low with systolic in the 100's - Change IV Lasix to 40mg PO BID (12/08) - AM labs pending (12/09) - 2D echo is pending. - Cardiology was consulted at admission. - obtain physical therapy evaluation - anticipate d/c in 1-2 days. - Pt will likely need SNF - DVT prophylaxis with SCDs - supportive care (2) GI bleed ICD Codes: K92.2 - Gastrointestinal hemorrhage, unspecified Status: Acute Plan: - comgmt with GI - Pt has had some noted GIB for a few weeks that began after she was disimpacted in the ED on 11/02/17 - Her H/H has decreased from October 2017 from Hgb 13 to 9 at admission - Colonoscopy (12/09/17) with Dr. 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 - EGD (12/09/17) with Dr. Hubert Head - Esophagus normal - Stomach mild gastritis with small ulceration - Duodenum normal - No sign of active bleeding - GI recommending caution & minimal dosing with anticoagulants. - Xarelto is held (3) A-fib ICD Codes: I48.91 - Unspecified atrial fibrillation Status: Chronic Plan: - Also she was diagnosed with paroxysmal A. fib and was started on Xarelto in October 2017. - She started having dark tarry stool and some red blood a few weeks ago and was supposed to be seen by GI as an outpt. - The Xarelto has reportedly been on hold - Cont. Metoprolol 100mg po BID - water resource consultant Problem Qualifiers (1) GI bleed: Qualified Codes: K92.2 - Gastrointestinal hemorrhage, unspecified (2) A-fib: Qualified Codes: I48.1 - Persistent atrial fibrillation Braden Whipple DO Dec 09, 2017 12:41
--- NOTE | 2017-12-09 13:52 | HHI.FF ---
Face to Face Verification Diagnosis: (1) Congestive heart failure (2) GI bleed Physical Therapy Order: Evaluate and Treat, Strength and gait training Occupational Therapy Order: Evaluate and Treat Home Health Nursing Order: Medical education Signs/symptoms of disease process CHF education Oxygen administration education Nursing assessment with vital signs Instructions: CBC, BMP and Mag Thursday with result to PCP Dr. Deluca Beam Builder Helper Order: To Evaluate: Living conditions/environment Order: To Provide: Long range planning I have seen patient Leticia Veloz on 12/09/17. My clinical findings support the need for the requested home health care services because: Ltd mobility - disease progression Limited ability to care for self I certify that my clinical findings support that this patient is homebound because: Unsteady gait/balance Poor cardiac reserve Libra Lilly Dec 09, 2017 13:52 Braden Whipple DO Dec 10, 2017 13:36
[2017-12-09] MEDS ORDERED: OXYGENDME NAS.CANULA (13:55)
[2017-12-09] MEDS ORDERED: WALKER WHEELS/F1 MIS (13:55)
[2017-12-09] MEDS ORDERED: OXYGENTANK NAS.CANULA (13:55)
[2017-12-09 14:34] LABS: AUTOMATED NEUTROPHIL # 8.5 TH/MM3 (1.8-7.7); BASOPHIL # 0.1 TH/MM3 (0-0.2); BASOPHIL % 0.9 % (0.0-2.0); EOSINOPHIL # 0.1 TH/MM3 (0-0.4); EOSINOPHIL % 1.4 % (0.0-4.0); HEMATOCRIT 30.1 % (35.0-46.0); HEMOGLOBIN 9.9 GM/DL (11.6-15.3); LYMPH % 9.7 % (9.0-44.0); MEAN CELL VOLUME 86.6 FL (80.0-100.0); MEAN CORPUSCULAR HEMOGLOBIN 28.4 PG (27.0-34.0); MEAN CORPUSCULAR HGB CONC 32.8 % (32.0-36.0); MEAN PLATELET VOLUME 7.6 FL (7.0-11.0); MONO % 9.1 % (0.0-8.0); NEUT % 78.9 % (16.0-70.0); PLATELET COUNT 355 TH/MM3 (150-450); RED BLOOD COUNT 3.48 MIL/MM3 (4.00-5.30); RED CELL DISTRIBUTION WIDTH 14.2 % (11.6-17.2); WHITE BLOOD COUNT 10.8 TH/MM3 (4.0-11.0)
[2017-12-09 14:58] LABS: BICARBONATE 31.8 MEQ/L (21.0-32.0); CALCIUM 8.7 MG/DL (8.5-10.1); CREATININE 1.17 MG/DL (0.50-1.00); MAGNESIUM 2.2 MG/DL (1.5-2.5)
--- NOTE | 2017-12-09 15:38 | RADRPT ---
EXAM DATE/TIME: 12/08/2017 14:31 [place] COMPARISON: MYOCARDIAL PERF PHARM SPECT, GATED W/EF, November 20, 2013, 14:12. INDICATIONS : Atrial fibrillation. Congestive heart failure. Myocardial infarction. DOSE: 30.1 mCi Tc99m Myoview at stress. 31.2 mCi Tc99m Myoview at rest. 0.4 mg Lexiscan STRESS SYMPTOMS: Dyspnea. EJECTION FRACTION: 35% MEDICAL HISTORY : GI bleed. SURGICAL HISTORY : Appendectomy. Cholecystectomy. ENCOUNTER: Initial ACUITY: 1 day PAIN SCALE: 0/10 LOCATION: chest TECHNIQUE: The patient underwent pharmacologic stress with infusion of prescribed dose. Continuous ECG tracing was monitored during stress. Gated SPECT imaging was performed after stress and conventional SPECT i maging was performed at rest. The examination was performed on a SPECT/CT scanner, both attenuation and non-corrected datasets were reviewed. FINDINGS: DISTRIBUTION: The maximum perfused segment at stress is in the anterolateral wall. PERFUSION STUDY: There is a small size mild severity fixed defect at the apex. No reversible ischemic segments are radha ntified. GATED STUDY: There is global hypokinesis with akinesia of the apex and ejection fraction of 35% CONCLUSION: 1. Small fixed defect in the apex with hypokinesis. No reversible ischemic segments are identified. RISK CATEGORY: Intermediate (1-3% Annual Mortality Rate) Rigo Ashby MD on December 09, 2017 at 15:33 Board Certified Radiologist. This report was verified electronically.
--- NOTE | 2017-12-09 16:42 | ECHRPT ---
Indication: HEART FAILURE CONCLUSIONS Normal left ventricular size. Wall thickness is normal. The left ventricular systolic function is severely reduced with an estimated ejection fraction less than 20%. Mitral annular calcification is present. Severe mitral valve regurgitation. mild mitral valve stenosis, mean gradient = 5 mm hg Trace aortic valve regurgitation. Aortic valve sclerosis is present. mean gradient = 10 mm hg with decreased ef c/w mild to moderate stenosis There is a trivial pericardial effusion present. severe tr, pap=44 mm hg BP: / HR: Rhythm: MEASUREMENTS (Male / Female) Normal Values Technical Quality:Good 2D ECHO LV Diastolic Diameter PLAX 4.4 cm 4.2 - 5.9 / 3.9 - 5.3 cm LV Systolic Diameter PLAX 4.2 cm IVS Diastolic Thickness 1.2 cm 0.6 - 1.0 / 0.6 - 0.9 cm LVPW Diastolic Thickness 0.9 cm 0.6 - 1.0 / 0.6 - 0.9 cm LV Relative Wall Thickness 0.5 RV Internal Dim ED PLAX 2.5 cm LA Systolic Diameter LX 3.9 cm 3.0 - 4.0 / 2.7 - 3.8 cm DOPPLER AV Peak Velocity 213.7 cm/s AV Peak Gradient 18.3 mmHg AV Mean Gradient 10.5 mmHg AV Velocity Time Integral 49.9 cm LVOT Peak Velocity 72.7 cm/s LVOT Peak Gradient 2.1 mmHg LVOT Velocity Time Integral 26.7 cm MV Peak Velocity 176.0 cm/s MV Peak Gradient 12.4 mmHg MV Mean Velocity 102.0 cm/s MV Mean Gradient 5.0 mmHg MR Peak Velocity 494.0 cm/s MR Peak Gradient 97.6 mmHg Mitral E Point Velocity 151.0 cm/s TR Peak Velocity 330.0 cm/s TR Peak Gradient 43.6 mmHg Right Atrial Pressure 5.0 mmHg Pulmonary Artery Systolic Pressu 48.6 mmHg Right Ventricular Systolic Press 48.6 mmHg FINDINGS LEFT VENTRICLE Normal left ventricular size. Wall thickness is normal. The left ventricular systolic function is severely reduced with an estimated ejection fraction less than 20%. RIGHT VENTRICLE Normal right ventricular size and systolic function. LEFT ATRIUM The left atrial size is normal. RIGHT ATRIUM The right atrial size is normal. ATRIAL SEPTUM Normal atrial septal thickness without atrial level shunting by limited color doppler interrogation. AORTA The aortic root and proximal ascending aorta are normal in size on limited imaging. MITRAL VALVE Mitral annular calcification is present. Severe mitral valve regurgitation. AORTIC VALVE Trace aortic valve regurgitation. Aortic valve sclerosis is present. TRICUSPID VALVE Structurally normal tricuspid valve. No tricuspid valve stenosis or regurgitation. PULMONARY VALVE No pulmonary valve regurgitation or stenosis. VESSELS The inferior vena cava is normal in size. PERICARDIUM There is a trivial pericardial effusion present. Sami Madera MD, FACC, [facility] [place] (Electronically Signed) Final Date:09 December 2017 16:41
[2017-12-09] MEDS: PANTOPRAZOLE SODIUM 40 MG VIAL IV PUSH SCH (21:43)
[2017-12-10] VITALS (9 sets, daily range): BP systolic 93–126; BP diastolic 47–68; PULSE 76–115; RESP 17–20; TEMP 96–98; O2SAT 90–100
[2017-12-10] MEDS: RESP: ALBUTEROL 2.5 MG/IPRATROPIUM 0.5 MG NEB (SCH) NEB ×3 (07:43→19:21)
--- NOTE | 2017-12-10 08:03 | PD.CARD.PN ---
Subjective Subjective Remarks Breathing better. No chest pain. echo shows significant decrease in LV function. Objective Medications Current Medications Medications (Trade) Dose Ordered Sig/Chon Route Start Time Stop Time Status Last Admin (Lopressor) 100 mg BID PO 12/07/17 21:00 12/09/17 21:42 (KCl) 20 meq BID PO 12/07/17 21:00 12/09/17 21:41 (NS Flush) 2 ml UNSCH PRN IV FLUSH 12/07/17 19:30 12/09/17 07:50 (NS Flush) 2 ml BID IV FLUSH 12/07/17 21:00 12/09/17 21:43 (Tylenol) 650 mg Q4H PRN PO 12/07/17 19:30 (Narcan Inj) 0.4 mg UNSCH PRN IV PUSH 12/07/17 19:30 (Leta-Colace) 1 tab BID PO 12/07/17 21:00 12/08/17 10:09 (Milk Of Magnesia Liq) 30 ml Q12H PRN PO 12/07/17 19:30 (Senokot) 17.2 mg Q12H PRN PO 12/07/17 19:30 (Dulcolax Supp) 10 mg DAILY PRN RECTAL 12/07/17 19:30 (Lactulose Liq) 30 ml DAILY PRN PO 12/07/17 19:30 (Protonix Inj) 40 mg Q24H IV PUSH 12/07/17 22:00 12/09/17 21:43 (Duoneb Neb) 1 ampule Q6HR WHILE AWAKE NEB NEB 12/08/17 08:00 12/10/17 07:43 (Lasix) 40 mg BID@,18 PO 12/08/17 18:00 12/09/17 18:13 Lactated Ringer's 1,000 ml @ 30 mls/hr Q24H PRN IV 12/09/17 01:30 12/12/17 01:29 12/09/17 07:50 Sodium Chloride 500 ml @ 30 mls/hr [id number] PRN IV 12/09/17 01:30 12/12/17 01:29 (Betadine 5% Antisepsis Kit) 1 applic INFECTION CONTROL PREVENTIONIST PRN EACH NARE 12/09/17 01:30 12/12/17 01:29 (Chlorhexidine 2% Cloth) 3 pack INFECTION CONTROL PREVENTIONIST PRN TOPICAL 12/09/17 01:30 12/12/17 01:29 Miscellaneous Information ALL NURSING DEPARTME... UNSCH PRN .XX 12/09/17 09:23 12/10/17 09:22 Vital Signs / I&O Vital Signs Date Time Temp Pulse Resp B/P (MAP) Pulse Ox O2 Delivery O2 Flow Rate FiO2 12/10/17 07:44 94 Nasal Cannula 3.00 12/10/17 04:00 96.4 76 17 121/68 (85) 100 12/10/17 00:00 96.4 89 18 126/62 (83) 100 12/09/17 20:00 96.6 108 18 122/67 (85) 100 12/09/17 19:12 100 Nasal Cannula 3.00 12/09/17 16:00 97.2 69 16 111/65 (80) 99 12/09/17 09:37 97.0 99 16 102/52 (69) 96 I/O 12/09/17 12/09/17 12/09/17 12/10/17 12/10/17 12/10/17 07:00 15:00 23:00 07:00 15:00 23:00 Intake Total 500 ml 240 ml 240 ml Balance 500 ml 240 ml 240 ml Intake Oral 240 ml 240 ml Other 500 ml # Voids 5 3 3 # Bowel Movements 5 0 Physical Exam Irregular mild decreased breath sounds in left base Laboratory Laboratory Tests Test 12/09/17 14:09 White Blood Count 10.8 TH/MM3 Red Blood Count 3.48 MIL/MM3 Hemoglobin 9.9 GM/DL Hematocrit 30.1 % Mean Corpuscular Volume 86.6 FL Mean Corpuscular Hemoglobin 28.4 PG Mean Corpuscular Hemoglobin Concent 32.8 % Red Cell Distribution Width 14.2 % Platelet Count 355 TH/MM3 Mean Platelet Volume 7.6 FL Neutrophils (%) (Auto) 78.9 % Lymphocytes (%) (Auto) 9.7 % Monocytes (%) (Auto) 9.1 % Eosinophils (%) (Auto) 1.4 % Basophils (%) (Auto) 0.9 % Neutrophils # (Auto) 8.5 TH/MM3 Lymphocytes # (Auto) 1.0 TH/MM3 Monocytes # (Auto) 1.0 TH/MM3 Eosinophils # (Auto) 0.1 TH/MM3 Basophils # (Auto) 0.1 TH/MM3 CBC Comment DIFF FINAL Differential Comment Blood Urea Nitrogen 20 MG/DL Creatinine 1.17 MG/DL Random Glucose 179 MG/DL Calcium Level 8.7 MG/DL Magnesium Level 2.2 MG/DL Sodium Level 140 MEQ/L Potassium Level 3.4 MEQ/L Chloride Level 101 MEQ/L Carbon Dioxide Level 31.8 MEQ/L Anion Gap 7 MEQ/L Estimat Glomerular Filtration Rate 44 ML/MIN B-Type Natriuretic Peptide 397 PG/ML Assessment and Plan Assessment and Plan Will add entresto to regimen Rigo Landers MD Dec 10, 2017 08:03
[2017-12-10] MEDS ORDERED: PROT40TA PO (08:43)
[2017-12-10] MEDS ORDERED: SACU1TAB PO (08:43)
--- NOTE | 2017-12-10 08:45 | HHI.DCPOC ---
Discharge Care Plan Diagnosis: (1) Congestive heart failure (2) GI bleed (3) A-fib Goals to Promote Your Health * To prevent worsening of your condition and complications * To maintain your health at the optimal level Directions to Meet Your Goals Take your medications as prescribed Follow your dietary instruction Follow activity as directed Keep your appointments as scheduled Take your immunizations and boosters as scheduled If your symptoms worsen call your PCP, if no PCP go to Urgent Care Center or Emergency Room Smoking is Dangerous to Your Health. Avoid second hand smoke Call the 24-hour hour crisis hotline for domestic abuse at Libra Lilly Dec 10, 2017 08:45 Braden Whipple DO Dec 14, 2017 11:30
[2017-12-10] MEDS: SACUBITRIL/VALSARTAN 24 MG-26 MG TAB PO SCH ×3 (09:00→21:25)
[2017-12-10] MEDS: SODIUM CHLORIDE 0.9% FLUSH 10 ML FLUSH IV FLUSH SCH ×2 (09:00→21:33)
[2017-12-10] MEDS: POTASSIUM CHLORIDE 20 MEQ CONTROLLED RELEASE TAB PO SCH ×2 (09:24→21:25)
[2017-12-10] MEDS: METOPROLOL TARTRATE 100 MG TAB PO SCH ×2 (09:24→21:00)
[2017-12-10] MEDS: FUROSEMIDE 40 MG TAB PO SCH ×2 (09:25→18:00)
[2017-12-10] MEDS: DOCUSATE SODIUM 50 MG/SENNA 8.6 MG TAB PO SCH ×2 (09:25→21:25)
--- NOTE | 2017-12-10 10:00 | HHI.DS ---
Discharge Summary Admission Date Dec 07, 2017 at 18:42 Discharge Date: Dec 11, 2017 Admitting Diagnosis CHF, GI bleed, outpatient treatment failure (1) CHF (congestive heart failure) ICD Codes: I50.9 - Congestive heart failure Status: Chronic (2) GI bleed ICD Codes: K92.2 - Gastrointestinal hemorrhage, unspecified Status: Acute (3) A-fib ICD Codes: I48.91 - Unspecified atrial fibrillation Status: Chronic Consultants Dr. Head, GI Dr. Gutierrez, Cardiology Procedures - Colonoscopy (12/09/17) with Dr. Hubert Head - EGD (12/09/17) with Dr. Hubert Head Brief History 87-year-old female came to the emergency room brought by her daughter with history of progressive shortness of breath for past 2 weeks. Patient was diagnosed with congestive heart failure by her primary care weeks ago and was started on Lasix. Daughter said initially it was 120 mg a day and after few days when she started feeling better was brought down to 80 mg a by her leaf conditioner helper. Also she was diagnosed with A. fib and was started on Xarelto 3 weeks ago. She started having dark tarry stool because of which the leaf conditioner helper wanted her to be seen by GI specialist. She was supposed to go back and see the leaf conditioner helper tomorrow and has a GI appointment in another couple days. However since her condition was not looking good the daughter decided to bring her to the emergency room today. After being brought from the triage when she was moved from the wheelchair to the stretcher patient started going to severe respiratory distress She denies any chest pain. She was put on oxygen and after laying still for a few minutes her bleeding started to improve. No history of fever or chill. Patient did receive IV lasix . Will admit and obtain cardiac evaluation did have echo in past which showed grade 1 diastolic dysfunction and at one time was on toby inhibitors. CBC/BMP: 12/09/17 1409 12/09/17 1409 Significant Findings Laboratory Tests Test 12/07/17 16:55 12/07/17 17:27 12/08/17 05:55 12/08/17 08:28 White Blood Count 11.2 TH/MM3 (4.0-11.0) Red Blood Count 3.41 MIL/MM3 (4.00-5.30) 3.21 MIL/MM3 (4.00-5.30) Hemoglobin 9.8 GM/DL (11.6-15.3) 9.1 GM/DL (11.6-15.3) Hematocrit 29.6 % (35.0-46.0) 27.7 % (35.0-46.0) Neutrophils (%) (Auto) 70.7 % (16.0-70.0) Monocytes (%) (Auto) 12.1 % (0.0-8.0) 13.6 % (0.0-8.0) Neutrophils # (Auto) 7.9 TH/MM3 (1.8-7.7) Monocytes # (Auto) 1.4 TH/MM3 (0-0.9) 1.3 TH/MM3 (0-0.9) Blood Urea Nitrogen 23 MG/DL (7-18) 22 MG/DL (7-18) Creatinine 1.66 MG/DL (0.50-1.00) 1.42 MG/DL (0.50-1.00) Random Glucose 142 MG/DL (74-106) Estimat Glomerular Filtration Rate 29 ML/MIN (>89) 35 ML/MIN (>89) Troponin I LESS THAN 0.02 NG/ML B-Type Natriuretic Peptide 453 PG/ML (0-100) 446 PG/ML (0-100) Blood Gas HCO3 29 mmol/L (22-26) Blood Gas Base Excess 4.6 mmol/L (-2-2) Arterial Blood Partial Pressure CO2 46 mmHg (38-42) Blood Gas Hemoglobin 9.1 G/DL (12.0-16.0) Carbon Dioxide Level 34.2 MEQ/L (21.0-32.0) D-Dimer Quantitative (PE/DVT) 1.30 MG/L FEU (0.00-0.50) Test 12/09/17 14:09 Red Blood Count 3.48 MIL/MM3 (4.00-5.30) Hemoglobin 9.9 GM/DL (11.6-15.3) Hematocrit 30.1 % (35.0-46.0) Neutrophils (%) (Auto) 78.9 % (16.0-70.0) Monocytes (%) (Auto) 9.1 % (0.0-8.0) Neutrophils # (Auto) 8.5 TH/MM3 (1.8-7.7) Monocytes # (Auto) 1.0 TH/MM3 (0-0.9) Blood Urea Nitrogen 20 MG/DL (7-18) Creatinine 1.17 MG/DL (0.50-1.00) Random Glucose 179 MG/DL (74-106) Potassium Level 3.4 MEQ/L (3.5-5.1) Estimat Glomerular Filtration Rate 44 ML/MIN (>89) B-Type Natriuretic Peptide 397 PG/ML (0-100) Imaging Last Impressions Chest X-Ray 12/09/17 0800 Signed Impressions: Service Date/Time: Saturday, December 09, 2017 10:45 - CONCLUSION: Persistent mild interstitial edema Minimal consolidative changes right base improved in the interval. Geremias Ritchie MD FACR Myocardial Perfusion Scan Nuc Med 12/08/17 0000 Signed Impressions: Service Date/Time: Friday, December 08, 2017 14:31 - CONCLUSION: 1. Small fixed defect in the apex with hypokinesis. No reversible ischemic segments are identified. RISK CATEGORY: Intermediate (1-3%% Annual Mortality Rate) Rigo Ashby MD Lower Extremity Ultrasound 12/07/17 0000 Signed Impressions: Service Date/Time: Thursday, December 07, 2017 18:06 - CONCLUSION: Normal examination. Juan Diego Wiggins MD PE at Discharge General: NAD, AAOx3 Chest: CTA Cardiac: Regular Abd: +BS, soft ND/NT Ext: Mild bilateral LE edema Hospital Course CHF (congestive heart failure) - Pt is an 87 y/o female with systolic/diastolic CHF with EF 35-45%, paroxysmal atrial fibrillation recently start on Xarelto, HTN, COPD, and CAD - Pt reported to the ED with history of progressive shortness of breath for past 2 weeks. - Pt takes Lasix 40mg po BID as an outpt. This is a decreased dose compared to what she had been on which was 80mg in AM and 40mg in PM. - last 2D echo (11/16/15) --> poor quality, EF 35-45%, diffuse hypokinesis, Grade I diastolic dysfunction - Her SOB worsened in the ED which improved with supplemental O2 - Pt was started on IV Lasix in the ED - CXR at admission noted there is a small right basilar opacity likely representing a small volume of pleural fluid and associated atelectasis or consolidation. - CXR (12/09) --> mild volume overload - LE US was negative for DVT - Her BNP has been in the 400s - BP has been low with systolic in the 100's - Change IV Lasix to 40mg PO BID (12/08) - AM labs pending (12/09) - 2D echo Normal left ventricular size. Wall thickness is normal. The left ventricular systolic function is severely reduced with an estimated ejection fraction less than 20%. Mitral annular calcification is present. Severe mitral valve regurgitation. mild mitral valve stenosis, mean gradient = 5 mm hg Trace aortic valve regurgitation. Aortic valve sclerosis is present. mean gradient = 10 mm hg with decreased ef c/w mild to moderate stenosis There is a trivial pericardial effusion present. severe tr, pap=44 mm hg - Cardiology also following and added Entresto - obtain physical therapy evaluation recommending PT at home - DVT prophylaxis with SCDs - supportive care GI bleed - comgmt with GI - Pt has had some noted GIB for a few weeks that began after she was disimpacted in the ED on 11/02/17 - Her H/H has decreased from October 2017 from Hgb 13 to 9 at admission - Colonoscopy (12/09/17) with Dr. 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 - EGD (12/09/17) with Dr. Hubert Head - Esophagus normal - Stomach mild gastritis with small ulceration - Duodenum normal - No sign of active bleeding - GI recommending caution & minimal dosing with anticoagulants. - Xarelto is held A-fib - Also she was diagnosed with paroxysmal A. fib and was started on Xarelto in October 2017. - She started having dark tarry stool and some red blood a few weeks ago and was supposed to be seen by GI as an outpt. - The Xarelto has been on hold - Cont. Metoprolol 100mg po BID - traffic monitor specialist Pt Condition on Discharge: Stable Discharge Disposition: Disch w/ Home Health Serv Discharge Instructions DIET: Follow Instructions for: Heart Healthy Diet Activities you can perform: Regular-No Restrictions Follow up Referrals: Cardiology - [address] Landers Gastroenterology - 2 Weeks with Hubert Head MD PCP Follow-up - [address] Acosta New Medications: Oxygen (O2) (Oxygen (O2)) Device LITER JOE.CANULA CONTINUOUS for Prevent Hypoxemia, #2 Oxygen Concentrator Portable Gaseous 2 L/min via Nasal Canula Continuous For 1 month Oxygen tank (Oxygen tank) 1 Ea Tank LITER JOE.CANULA CONTINUOUS for HYPOXEMIA PREVENTION, #2 Oxygen Concentrator Portable Gaseous 2 L/min via Nasal Cannula Continuous For 1 month Pantoprazole (Protonix) 40 Mg Tab 40 MG PO DAILY for Ulcer Prevention, #30 TAB 0 Refills Walker with Front Wheels (Walker with Front Wheels) 1 Mis Mis EA .XX DIRECTED, #1 0 Refills Sacubitril-Valsartan (Entresto) 24-26 Mg Tab 1 TAB PO BID for heart and Blood pressure, #60 TAB 0 Refills Continued Medications: Furosemide (Lasix) 40 Mg Tab 40 MG PO BID, #60 TAB 0 Refills Take 40 mg in the morning and 40 mg around 2 PM. Metoprolol Tartrate (Metoprolol Tartrate) 100 Mg Tab 100 MG PO BID, #60 TAB 0 Refills Potassium Chloride ER (Potassium Chloride ER) 20 Meq Tab 20 MEQ PO BID for Electrolyte Replacement, #60 TAB 0 Refills Discontinued Medications: Aspirin DR (Ecotrin Low Strength) 81 Mg Tabdr 81 MG PO DAILY, #30 TAB 0 Refills Libra Lilly Dec 10, 2017 10:00
--- NOTE | 2017-12-10 13:57 | HHI.PR ---
Subjective Remarks Patient reports feeling well offers no complaints at this time Objective Vitals Vital Signs Date Time Temp Pulse Resp B/P (MAP) Pulse Ox O2 Delivery O2 Flow Rate FiO2 12/10/17 12:00 96.2 112 18 107/60 (76) 94 12/10/17 08:00 96.0 87 19 93/47 (62) 90 12/10/17 07:44 94 Nasal Cannula 3.00 12/10/17 04:00 96.4 76 17 121/68 (85) 100 12/10/17 00:00 96.4 89 18 126/62 (83) 100 12/09/17 20:00 96.6 108 18 122/67 (85) 100 12/09/17 19:12 100 Nasal Cannula 3.00 12/09/17 16:00 97.2 69 16 111/65 (80) 99 12/10/17 12/10/17 12/11/17 15:00 23:00 07:00 Intake Total 0 ml Balance 0 ml IV Total 0 ml Result Diagram: 12/09/17 1409 12/09/17 1409 Imaging Last Impressions Chest X-Ray 12/09/17 0800 Signed Impressions: Service Date/Time: Saturday, December 09, 2017 10:45 - CONCLUSION: Persistent mild interstitial edema Minimal consolidative changes right base improved in the interval. Geremias Ritchie MD FACR Lower Extremity Ultrasound 12/07/17 0000 Signed Impressions: Service Date/Time: Thursday, December 07, 2017 18:06 - CONCLUSION: Normal examination. Juan Diego Wiggins MD Objective Remarks General: NAD, AAOx3 Chest: CTA Cardiac: Regular Abd: +BS, soft ND/NT Ext: Mild bilateral LE edema Procedures - Colonoscopy (12/09/17) with Dr. Hubert Head - EGD (12/09/17) with Dr. Hubert Head A/P Problem List: (1) CHF (congestive heart failure) ICD Codes: I50.9 - Congestive heart failure Status: Chronic Plan: CHF (congestive heart failure) - Pt is an 87 y/o female with systolic/diastolic CHF with EF 35-45%, paroxysmal atrial fibrillation recently start on Xarelto, HTN, COPD, and CAD - Pt reported to the ED with history of progressive shortness of breath for past 2 weeks. - Pt takes Lasix 40mg po BID as an outpt. This is a decreased dose compared to what she had been on which was 80mg in AM and 40mg in PM. - last 2D echo (11/16/15) --> poor quality, EF 35-45%, diffuse hypokinesis, Grade I diastolic dysfunction - Her SOB worsened in the ED which improved with supplemental O2 - Pt was started on IV Lasix in the ED - CXR at admission noted there is a small right basilar opacity likely representing a small volume of pleural fluid and associated atelectasis or consolidation. - CXR (12/09) --> mild volume overload - LE US was negative for DVT - Her BNP has been in the 400s - BP has been low with systolic in the 100's - Change IV Lasix to 40mg PO BID (12/08) - AM labs pending (12/09) - 2D echo Normal left ventricular size. Wall thickness is normal. The left ventricular systolic function is severely reduced with an estimated ejection fraction less than 20%. Mitral annular calcification is present. Severe mitral valve regurgitation. mild mitral valve stenosis, mean gradient = 5 mm hg Trace aortic valve regurgitation. Aortic valve sclerosis is present. mean gradient = 10 mm hg with decreased ef c/w mild to moderate stenosis There is a trivial pericardial effusion present. severe tr, pap=44 mm hg - Cardiology was consulted and following. Cardiology added Entresto. Will monitor patient overnight and DC in AM - obtain physical therapy evaluation recommending PT at home - DVT prophylaxis with SCDs - supportive care GI bleed - comgmt with GI - Pt has had some noted GIB for a few weeks that began after she was disimpacted in the ED on 11/02/17 - Her H/H has decreased from October 2017 from Hgb 13 to 9 at admission - Colonoscopy (12/09/17) with Dr. 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 - EGD (12/09/17) with Dr. Hubert Head - Esophagus normal - Stomach mild gastritis with small ulceration - Duodenum normal - No sign of active bleeding - GI recommending caution & minimal dosing with anticoagulants. - Xarelto is held A-fib - Also she was diagnosed with paroxysmal A. fib and was started on Xarelto in October 2017. - She started having dark tarry stool and some red blood a few weeks ago and was supposed to be seen by GI as an outpt. - The Xarelto has been on hold - Cont. Metoprolol 100mg po BID - environmental monitoring specialist (2) GI bleed ICD Codes: K92.2 - Gastrointestinal hemorrhage, unspecified Status: Acute (3) A-fib ICD Codes: I48.91 - Unspecified atrial fibrillation Status: Chronic Assessment and Plan Patient examined. Assessment and plan formulated with Libra Lilly PA-C. I agree with the above. Problem Qualifiers (1) GI bleed: Qualified Codes: K92.2 - Gastrointestinal hemorrhage, unspecified (2) A-fib: Qualified Codes: I48.1 - Persistent atrial fibrillation Libra Lilly Dec 10, 2017 13:57 Braden Whipple DO Dec 13, 2017 10:32
--- NOTE | 2017-12-10 15:40 | HHI.GIFU ---
Subjective Remarks Pt OOB to chair. no GI complaints. no bleeding. 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) Objective Vitals I&O Vital Signs Date Time Temp Pulse Resp B/P (MAP) Pulse Ox O2 Delivery O2 Flow Rate FiO2 12/10/17 13:50 2.00 12/10/17 12:00 96.2 112 18 107/60 (76) 94 12/10/17 08:00 96.0 87 19 93/47 (62) 90 12/10/17 07:44 94 Nasal Cannula 3.00 12/10/17 04:00 96.4 76 17 121/68 (85) 100 12/10/17 00:00 96.4 89 18 126/62 (83) 100 12/09/17 20:00 96.6 108 18 122/67 (85) 100 12/09/17 19:12 100 Nasal Cannula 3.00 12/09/17 16:00 97.2 69 16 111/65 (80) 99 I/O 12/09/17 12/09/17 12/09/17 12/10/17 12/10/17 12/10/17 07:00 15:00 23:00 07:00 15:00 23:00 Intake Total 500 ml 240 ml 240 ml 0 ml Balance 500 ml 240 ml 240 ml 0 ml Intake Oral 240 ml 240 ml IV Total 0 ml Other 500 ml # Voids 5 3 3 # Bowel Movements 5 0 Laboratory Date/Time Source Procedure Growth Status 12/07/17 17:00 Blood Peripheral Aerobic Blood Culture - Preliminary NO GROWTH IN 3 DAYS Resulted 12/07/17 17:00 Blood Peripheral Anaerobic Blood Culture - Preliminary NO GROWTH IN 3 DAYS Resulted Imaging Last Impressions Chest X-Ray 12/09/17 0800 Signed Impressions: Service Date/Time: Saturday, December 09, 2017 10:45 - CONCLUSION: Persistent mild interstitial edema Minimal consolidative changes right base improved in the interval. Geremias Ritchie MD FACR Myocardial Perfusion Scan Nuc Med 12/08/17 0000 Signed Impressions: Service Date/Time: Friday, December 08, 2017 14:31 - CONCLUSION: 1. Small fixed defect in the apex with hypokinesis. No reversible ischemic segments are identified. RISK CATEGORY: Intermediate (1-3%% Annual Mortality Rate) Rigo Ashby MD Lower Extremity Ultrasound 12/07/17 0000 Signed Impressions: Service Date/Time: Thursday, December 07, 2017 18:06 - CONCLUSION: Normal examination. Juan Diego Wiggins MD Physical Exam HEENT: PERRL; normocephalic; atraumatic; no jaundice. CHEST: CTA CARDIAC: irregular HR ABDOMEN: Soft, nondistended, nontender; no hepatosplenomegaly; bowel sounds are present in all four quadrants. EXTREMITIES: No clubbing, cyanosis, or edema. SKIN: Normal; no rash; no jaundice. HORTICULTURAL AGENT: No focal deficits; alert and oriented times three. 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 HH is stable. BX gastritis, hyperplastic polyp. PLAN: MIGUE if anticoag needed, minimal dose possible w/ close monitoring packed RBC transfusion if needed supportive care ok to d/c home tomorrow from GI standpoint f/u with GI after d/c pt seen by myself and Dr Head and this note is one his behalf (Niharika Wilson) Plan Patient was seen and examined, agree with above-noted, feeling better, no sign of active bleeding, okay to discharge home from GI, follow-up as an outpatient (Hubert Head MD) Niharika Wilson Dec 10, 2017 15:40 Hubert Head MD Dec 10, 2017 17:51
[2017-12-10] MEDS: PANTOPRAZOLE SODIUM 40 MG VIAL IV PUSH SCH (21:26)
[2017-12-11] VITALS (9 sets, daily range): BP systolic 0–98; BP diastolic 0–56; PULSE 89–123; RESP 17–18; TEMP 95.3–97.4; O2SAT 95–100
[2017-12-11 05:08] LABS: AUTOMATED NEUTROPHIL # 7.9 TH/MM3 (1.8-7.7); BASOPHIL # 0.1 TH/MM3 (0-0.2); BASOPHIL % 0.8 % (0.0-2.0); EOSINOPHIL # 0.2 TH/MM3 (0-0.4); EOSINOPHIL % 2.2 % (0.0-4.0); HEMATOCRIT 27.9 % (35.0-46.0); HEMOGLOBIN 9.1 GM/DL (11.6-15.3); LYMPH % 15.3 % (9.0-44.0); LYMPHOCYTE # 1.7 TH/MM3 (1.0-4.8); MEAN CELL VOLUME 85.3 FL (80.0-100.0); MEAN CORPUSCULAR HEMOGLOBIN 27.9 PG (27.0-34.0); MEAN CORPUSCULAR HGB CONC 32.7 % (32.0-36.0); MEAN PLATELET VOLUME 7.6 FL (7.0-11.0); MONO % 11.8 % (0.0-8.0); MONOCYTE # 1.3 TH/MM3 (0-0.9); NEUT % 69.9 % (16.0-70.0); PLATELET COUNT 339 TH/MM3 (150-450); RED BLOOD COUNT 3.27 MIL/MM3 (4.00-5.30); RED CELL DISTRIBUTION WIDTH 14.1 % (11.6-17.2); WHITE BLOOD COUNT 11.3 TH/MM3 (4.0-11.0)
[2017-12-11 05:09] LABS: BICARBONATE 32.2 MEQ/L (21.0-32.0); CALCIUM 8.4 MG/DL (8.5-10.1); CREATININE 1.6 MG/DL (0.50-1.00)
[2017-12-11] MEDS: RESP: ALBUTEROL 2.5 MG/IPRATROPIUM 0.5 MG NEB (SCH) NEB ×3 (07:51→19:20)
[2017-12-11] MEDS: FUROSEMIDE 40 MG TAB PO SCH ×2 (08:42→18:00)
[2017-12-11] MEDS: METOPROLOL TARTRATE 100 MG TAB PO SCH ×2 (08:43→21:00)
[2017-12-11] MEDS: POTASSIUM CHLORIDE 20 MEQ CONTROLLED RELEASE TAB PO SCH ×2 (08:45→21:48)
[2017-12-11] MEDS: DOCUSATE SODIUM 50 MG/SENNA 8.6 MG TAB PO SCH ×2 (08:45→21:48)
[2017-12-11] MEDS: SODIUM CHLORIDE 0.9% FLUSH 10 ML FLUSH IV FLUSH SCH ×2 (08:46→21:48)
--- NOTE | 2017-12-11 09:24 | PD.CARD.PN ---
Subjective Subjective Remarks Breathing better. BP quitelow after starting Entresto. No dizziness Objective Medications Current Medications Medications (Trade) Dose Ordered Sig/Chon Route Start Time Stop Time Status Last Admin (Lopressor) 100 mg BID PO 12/07/17 21:00 12/10/17 09:24 (KCl) 20 meq BID PO 12/07/17 21:00 12/11/17 08:45 (NS Flush) 2 ml UNSCH PRN IV FLUSH 12/07/17 19:30 12/09/17 07:50 (NS Flush) 2 ml BID IV FLUSH 12/07/17 21:00 12/11/17 08:46 (Tylenol) 650 mg Q4H PRN PO 12/07/17 19:30 (Narcan Inj) 0.4 mg UNSCH PRN IV PUSH 12/07/17 19:30 (Leta-Colace) 1 tab BID PO 12/07/17 21:00 12/11/17 08:45 (Milk Of Magnesia Liq) 30 ml Q12H PRN PO 12/07/17 19:30 (Senokot) 17.2 mg Q12H PRN PO 12/07/17 19:30 (Dulcolax Supp) 10 mg DAILY PRN RECTAL 12/07/17 19:30 (Lactulose Liq) 30 ml DAILY PRN PO 12/07/17 19:30 (Protonix Inj) 40 mg Q24H IV PUSH 12/07/17 22:00 12/10/17 21:26 (Duoneb Neb) 1 ampule Q6HR WHILE AWAKE NEB NEB 12/08/17 08:00 12/11/17 07:51 (Lasix) 40 mg BID@,18 PO 12/08/17 18:00 12/10/17 18:00 Lactated Ringer's 1,000 ml @ 30 mls/hr Q24H PRN IV 12/09/17 01:30 12/12/17 01:29 12/09/17 07:50 Sodium Chloride 500 ml @ 30 mls/hr [id number] PRN IV 12/09/17 01:30 12/12/17 01:29 (Betadine 5% Antisepsis Kit) 1 applic TOOLROOM CHECKER PRN EACH NARE 12/09/17 01:30 12/12/17 01:29 (Chlorhexidine 2% Cloth) 3 pack TOOLROOM CHECKER PRN TOPICAL 12/09/17 01:30 12/12/17 01:29 Vital Signs / I&O Vital Signs Date Time Temp Pulse Resp B/P (MAP) Pulse Ox O2 Delivery O2 Flow Rate FiO2 12/11/17 09:02 94/53 (67) 12/11/17 08:00 95.8 95 17 83/50 (61) 98 12/11/17 07:57 98 Nasal Cannula 2.00 12/11/17 04:00 96.4 89 18 86/51 (63) 100 12/11/17 00:00 97.4 116 18 90/51 (64) 100 12/10/17 21:37 104 95/56 (69) 96 12/10/17 20:00 98.0 115 20 12/10/17 19:22 95 12/10/17 16:00 97.0 81 18 103/48 (66) 92 12/10/17 13:50 2.00 12/10/17 12:00 96.2 112 18 107/60 (76) 94 I/O 12/10/17 12/10/17 12/10/17 12/11/17 12/11/17 12/11/17 07:00 15:00 23:00 07:00 15:00 23:00 Intake Total 240 ml 0 ml 960 ml 240 ml Balance 240 ml 0 ml 960 ml 240 ml Intake Oral 240 ml 960 ml 240 ml IV Total 0 ml # Voids 3 2 2 Physical Exam Irregular mild decreased breath sounds in left base Laboratory Laboratory Tests Test 12/11/17 04:10 White Blood Count 11.3 TH/MM3 Red Blood Count 3.27 MIL/MM3 Hemoglobin 9.1 GM/DL Hematocrit 27.9 % Mean Corpuscular Volume 85.3 FL Mean Corpuscular Hemoglobin 27.9 PG Mean Corpuscular Hemoglobin Concent 32.7 % Red Cell Distribution Width 14.1 % Platelet Count 339 TH/MM3 Mean Platelet Volume 7.6 FL Neutrophils (%) (Auto) 69.9 % Lymphocytes (%) (Auto) 15.3 % Monocytes (%) (Auto) 11.8 % Eosinophils (%) (Auto) 2.2 % Basophils (%) (Auto) 0.8 % Neutrophils # (Auto) 7.9 TH/MM3 Lymphocytes # (Auto) 1.7 TH/MM3 Monocytes # (Auto) 1.3 TH/MM3 Eosinophils # (Auto) 0.2 TH/MM3 Basophils # (Auto) 0.1 TH/MM3 CBC Comment DIFF FINAL Differential Comment Blood Urea Nitrogen 30 MG/DL Creatinine 1.60 MG/DL Random Glucose 104 MG/DL Calcium Level 8.4 MG/DL Sodium Level 140 MEQ/L Potassium Level 4.0 MEQ/L Chloride Level 102 MEQ/L Carbon Dioxide Level 32.2 MEQ/L Anion Gap 6 MEQ/L Estimat Glomerular Filtration Rate 30 ML/MIN Assessment and Plan Assessment and Plan Will have to D/C Entresto. Continue metoprolol for HR control. Anxious to go home. OK to D/C. Will see back in office next week and add [place] if BP allows. Hold anti-coagulants in view of multiple AVM's. Rigo Landers MD Dec 11, 2017 09:24
--- NOTE | 2017-12-11 14:40 | HHI.PR ---
Subjective Remarks Pt held overnight to start on Entresto. Pt became hypotensive. Entresto stopped. telemetry (12/11): Afib RVR Objective Vitals Vital Signs Date Time Temp Pulse Resp B/P (MAP) Pulse Ox O2 Delivery O2 Flow Rate FiO2 12/11/17 12:00 95.3 116 17 98/53 (68) 95 12/11/17 09:02 0/0 (0) 94/54 (67) 12/11/17 08:00 95.8 95 17 83/50 (61) 98 12/11/17 07:57 98 Nasal Cannula 2.00 12/11/17 04:00 96.4 89 18 86/51 (63) 100 12/11/17 00:00 97.4 116 18 90/51 (64) 100 12/10/17 21:37 104 95/56 (69) 96 12/10/17 20:00 98.0 115 20 12/10/17 19:22 95 12/10/17 16:00 97.0 81 18 103/48 (66) 92 Result Diagram: 12/11/17 0410 12/11/17 0410 Imaging Last Impressions Chest X-Ray 12/09/17 0800 Signed Impressions: Service Date/Time: Saturday, December 09, 2017 10:45 - CONCLUSION: Persistent mild interstitial edema Minimal consolidative changes right base improved in the interval. Geremias Ritchie MD FACR Myocardial Perfusion Scan Nuc Med 12/08/17 0000 Signed Impressions: Service Date/Time: Friday, December 08, 2017 14:31 - CONCLUSION: 1. Small fixed defect in the apex with hypokinesis. No reversible ischemic segments are identified. RISK CATEGORY: Intermediate (1-3%% Annual Mortality Rate) Rigo Ashby MD Lower Extremity Ultrasound 12/07/17 0000 Signed Impressions: Service Date/Time: Thursday, December 07, 2017 18:06 - CONCLUSION: Normal examination. Juan Diego Wiggins MD Objective Remarks General: NAD, AAOx3 Chest: CTA Cardiac: Regular Abd: +BS, soft ND/NT Ext: Mild bilateral LE edema Procedures - Colonoscopy (12/09/17) with Dr. Hubert Head - EGD (12/09/17) with Dr. Hubert Head A/P Problem List: (1) A-fib ICD Codes: I48.91 - Unspecified atrial fibrillation Status: Chronic Plan: - tele: Afib RVR - Pt trending hypotensive - metoprolol 100mg BID (2 dose held d/t hypotension) - start IV digoxin - IVF 500ml - digoxin level in AM - Xarelto on hold d/t GIB - observe (2) CHF (congestive heart failure) ICD Codes: I50.9 - Congestive heart failure Status: Chronic Plan: CHF (congestive heart failure) - Pt is an 87 y/o female with systolic/diastolic CHF with EF 35-45%, paroxysmal atrial fibrillation recently start on Xarelto, HTN, COPD, and CAD - Pt reported to the ED with history of progressive shortness of breath for past 2 weeks. - Pt takes Lasix 40mg po BID as an outpt. This is a decreased dose compared to what she had been on which was 80mg in AM and 40mg in PM. - last 2D echo (11/16/15) --> poor quality, EF 35-45%, diffuse hypokinesis, Grade I diastolic dysfunction - Her SOB worsened in the ED which improved with supplemental O2 - Pt was started on IV Lasix in the ED - CXR at admission noted there is a small right basilar opacity likely representing a small volume of pleural fluid and associated atelectasis or consolidation. - CXR (12/09) --> mild volume overload - LE US was negative for DVT - Her BNP has been in the 400s - BP has been low with systolic in the 100's - Change IV Lasix to 40mg PO BID (12/08) - 2D echo Normal left ventricular size. Wall thickness is normal. The left ventricular systolic function is severely reduced with an estimated ejection fraction less than 20%. Mitral annular calcification is present. Severe mitral valve regurgitation. mild mitral valve stenosis, mean gradient = 5 mm hg Trace aortic valve regurgitation. Aortic valve sclerosis is present. mean gradient = 10 mm hg with decreased ef c/w mild to moderate stenosis There is a trivial pericardial effusion present. severe tr, pap=44 mm hg - Pt unable to tolerate Entreso. Entreso stopped - observe overnight GI bleed - comgmt with GI - Pt has had some noted GIB for a few weeks that began after she was disimpacted in the ED on 11/02/17 - Her H/H has decreased from October 2017 from Hgb 13 to 9 at admission - Colonoscopy (12/09/17) with Dr. 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 - EGD (12/09/17) with Dr. Hubert Head - Esophagus normal - Stomach mild gastritis with small ulceration - Duodenum normal - No sign of active bleeding - GI recommending caution & minimal dosing with anticoagulants. - Xarelto is held - f/u with GI in 2 weeks after discharge (3) GI bleed ICD Codes: K92.2 - Gastrointestinal hemorrhage, unspecified Status: Acute Problem Qualifiers (1) A-fib: Qualified Codes: I48.1 - Persistent atrial fibrillation (2) GI bleed: Qualified Codes: K92.2 - Gastrointestinal hemorrhage, unspecified Braden Whipple DO Dec 11, 2017 14:40
[2017-12-11] MEDS ORDERED: DIGOXIN 0.5 MG/2 ML VIAL IVS STA (15:02)
[2017-12-11] MEDS ORDERED: SODIUM CHLORID 0.9% 500 ML INJ 500 ML IV SCH (15:15)
[2017-12-11 16:32] LABS: AUTOMATED NEUTROPHIL # 9.6 TH/MM3 (1.8-7.7); BASOPHIL # 0.1 TH/MM3 (0-0.2); BASOPHIL % 0.7 % (0.0-2.0); EOSINOPHIL # 0.3 TH/MM3 (0-0.4); EOSINOPHIL % 1.9 % (0.0-4.0); HEMATOCRIT 29.7 % (35.0-46.0); HEMOGLOBIN 9.5 GM/DL (11.6-15.3); LYMPH % 12.6 % (9.0-44.0); LYMPHOCYTE # 1.7 TH/MM3 (1.0-4.8); MEAN CELL VOLUME 85.9 FL (80.0-100.0); MEAN CORPUSCULAR HEMOGLOBIN 27.5 PG (27.0-34.0); MEAN PLATELET VOLUME 7.9 FL (7.0-11.0); MONO % 12.9 % (0.0-8.0); MONOCYTE # 1.7 TH/MM3 (0-0.9); NEUT % 71.9 % (16.0-70.0); PLATELET COUNT 387 TH/MM3 (150-450); RED BLOOD COUNT 3.46 MIL/MM3 (4.00-5.30); RED CELL DISTRIBUTION WIDTH 14.9 % (11.6-17.2); WHITE BLOOD COUNT 13.4 TH/MM3 (4.0-11.0)
[2017-12-11] MEDS: ACETAMINOPHEN/HYDROcodone 325 MG/5 MG TAB PO PRN (18:49)
[2017-12-11] MEDS ORDERED: CHLORHEXIDINE GLUCONATE 2 % 1 PACK (2 CLOTHS)(extra cloths) TOPICAL PRN (21:15)
[2017-12-11] MEDS ORDERED: DIGOXIN 0.5 MG/2 ML VIAL IVS SCH (21:15)
[2017-12-11] MEDS ORDERED: AMIODARONE 150 MG/D5W 97 ML BOLUS 60 MINUTES IV ONE ×2 (21:30)
[2017-12-11] MEDS: PANTOPRAZOLE SODIUM 40 MG VIAL IV PUSH SCH (21:57)
[2017-12-11] MEDS: AMIODARONE INJ 450 MG in SODIUM CHLOR 0.9% (EXCEL) INJ 241 ML IV PRN (22:50)
[2017-12-12] VITALS (14 sets, daily range): BP systolic 102–134; BP diastolic 53–60; PULSE 77–98; RESP 18–27; TEMP 97.6–98.7; O2SAT 91–97
[2017-12-12] MEDS: CHLORHEXIDINE GLUCONATE 2 % 1 PACK (2 CLOTHS)(taper/protocol) TOPICAL SCH (01:28)
[2017-12-12] MEDS: AMIODARONE INJ 450 MG in SODIUM CHLOR 0.9% (EXCEL) INJ 241 ML IV PRN ×2 (05:44→20:35)
[2017-12-12 05:46] LABS: BASOPHIL # 0.1 TH/MM3 (0-0.2); BASOPHIL % 0.7 % (0.0-2.0); EOSINOPHIL # 0.2 TH/MM3 (0-0.4); EOSINOPHIL % 2.7 % (0.0-4.0); HEMATOCRIT 25.3 % (35.0-46.0); HEMOGLOBIN 8.5 GM/DL (11.6-15.3); LYMPH % 15.3 % (9.0-44.0); LYMPHOCYTE # 1.3 TH/MM3 (1.0-4.8); MEAN CELL VOLUME 84.4 FL (80.0-100.0); MEAN CORPUSCULAR HEMOGLOBIN 28.4 PG (27.0-34.0); MEAN CORPUSCULAR HGB CONC 33.6 % (32.0-36.0); MEAN PLATELET VOLUME 7.5 FL (7.0-11.0); MONO % 11.1 % (0.0-8.0); MONOCYTE # 0.9 TH/MM3 (0-0.9); NEUT % 70.2 % (16.0-70.0); PLATELET COUNT 284 TH/MM3 (150-450); RED CELL DISTRIBUTION WIDTH 14.8 % (11.6-17.2); WHITE BLOOD COUNT 8.5 TH/MM3 (4.0-11.0)
[2017-12-12 06:07] LABS: BICARBONATE 28.7 MEQ/L (21.0-32.0); CALCIUM 8.3 MG/DL (8.5-10.1); CREATININE 1.34 MG/DL (0.50-1.00)
[2017-12-12 06:23] LABS: DIGOXIN 1.4 NG/ML (0.8-2.0)
[2017-12-12] MEDS: METOPROLOL TARTRATE 100 MG TAB PO SCH ×2 (07:23→20:57)
[2017-12-12] MEDS: POTASSIUM CHLORIDE 20 MEQ CONTROLLED RELEASE TAB PO SCH ×2 (07:23→20:57)
[2017-12-12] MEDS: FUROSEMIDE 40 MG TAB PO SCH ×2 (07:23→17:18)
[2017-12-12] MEDS: RESP: ALBUTEROL 2.5 MG/IPRATROPIUM 0.5 MG NEB (SCH) NEB (07:29)
[2017-12-12] MEDS: DOCUSATE SODIUM 50 MG/SENNA 8.6 MG TAB PO SCH ×2 (08:27→20:57)
[2017-12-12] MEDS: SODIUM CHLORIDE 0.9% FLUSH 10 ML FLUSH IV FLUSH SCH ×2 (08:28→20:57)
--- NOTE | 2017-12-12 08:37 | RADRPT ---
EXAM DATE/TIME: 12/12/2017 07:45 [facility] COMPARISON: CHEST SINGLE AP, December 07, 2017, 16:54. INDICATIONS : Shortness of breath. MEDICAL HISTORY : Myocardial infarction. Congestive heart failure. Hypercholesterolemia. Dizziness. Hypertension. Dyspn ea. Gastroesophageal reflux disease. Arthritis. Osteoporosis. SURGICAL HISTORY : Appendectomy. Cholecystectomy. Cardiac catheterization. ENCOUNTER: Subsequent ACUITY: 3 days PAIN SCORE: 0/10 LOCATION: Bilateral chest FINDINGS: A single view of the chest demonstrates mild bilateral hilar vascular congestion. Some consolidation in the right lung base atelectasis versus small effusion.. The cardiomediastinal contours are unrema rkable. Osseous structures are intact. CONCLUSION: Pulmonary vasculature congestion persists. Question developing infiltrate right lung base. Chauncey Jerry MD on December 12, 2017 at 8:36 Board Certified Radiologist. This report was verified electronically.
--- NOTE | 2017-12-12 09:08 | PD.CARD.PN ---
Subjective Subjective Remarks Episode of RVR last night. Given amiodarone and rate controlled. No chest pain or dyspnea. CXR unchanged with hilar fullness Objective Medications Current Medications Medications (Trade) Dose Ordered Sig/Chon Route Start Time Stop Time Status Last Admin (Lopressor) 100 mg BID PO 12/07/17 21:00 12/10/17 09:24 (KCl) 20 meq BID PO 12/07/17 21:00 12/11/17 21:48 (NS Flush) 2 ml UNSCH PRN IV FLUSH 12/07/17 19:30 12/09/17 07:50 (NS Flush) 2 ml BID IV FLUSH 12/07/17 21:00 12/12/17 08:28 (Tylenol) 650 mg Q4H PRN PO 12/07/17 19:30 12/11/17 17:46 (Narcan Inj) 0.4 mg UNSCH PRN IV PUSH 12/07/17 19:30 (Leta-Colace) 1 tab BID PO 12/07/17 21:00 12/12/17 08:27 (Milk Of Magnesia Liq) 30 ml Q12H PRN PO 12/07/17 19:30 (Senokot) 17.2 mg Q12H PRN PO 12/07/17 19:30 (Dulcolax Supp) 10 mg DAILY PRN RECTAL 12/07/17 19:30 (Lactulose Liq) 30 ml DAILY PRN PO 12/07/17 19:30 (Protonix Inj) 40 mg Q24H IV PUSH 12/07/17 22:00 12/11/17 21:57 (Lasix) 40 mg BID@ PO 12/08/17 18:00 12/10/17 18:00 ([place] 5-325 Mg) 1 tab Q4H PRN PO 12/11/17 18:45 12/11/17 18:49 Miscellaneous Information Patient in critical care unit? Ass... [id number] .XX 12/11/17 21:15 12/11/17 21:15 (Chlorhexidine 2% Cloth) 3 pack DAILY@04 TOPICAL 12/12/17 04:00 12/16/17 04:01 12/12/17 01:28 (Chlorhexidine 2% Cloth) 3 pack UNSCH PRN TOPICAL 12/11/17 21:15 12/16/17 21:10 Amiodarone HCl 450 mg/Sodium Chloride 250 ml @ 33.33 mls/ hr TITRATE PRN IV 12/11/17 21:30 12/12/17 05:44 Vital Signs / I&O Vital Signs Date Time Temp Pulse Resp B/P (MAP) Pulse Ox O2 Delivery O2 Flow Rate FiO2 12/12/17 08:00 85 12/12/17 08:00 98.4 95 21 102/60 (74) 96 12/12/17 07:30 97 Nasal Cannula 2.00 12/12/17 07:15 85 102/60 12/12/17 07:00 99 Nasal Cannula 3.00 12/12/17 06:00 78 12/12/17 05:44 73 112/55 12/12/17 05:00 82 114/53 12/12/17 04:00 81 12/12/17 04:00 98.0 81 27 134/60 (84) 12/12/17 02:00 84 12/12/17 00:00 98.7 96 18 107/58 (74) 95 12/12/17 00:00 96 12/11/17 22:50 89 99/58 12/11/17 22:00 104 12/11/17 22:00 98 Nasal Cannula 3.00 12/11/17 21:49 110 106/54 12/11/17 19:20 96 Nasal Cannula 2.50 12/11/17 15:34 95.7 123 17 98/56 (70) 96 Automatic Cuff 12/11/17 12:00 95.3 116 17 98/53 (68) 95 I/O 12/11/17 12/11/17 12/11/17 12/12/17 12/12/17 12/12/17 07:00 15:00 23:00 07:00 15:00 23:00 Intake Total 240 ml 1583 ml 322 ml Balance 240 ml 1583 ml 322 ml Intake Oral 240 ml 1080 ml 100 ml IV Total 503 ml 222 ml # Voids 2 1 2 # Bowel Movements 1 0 Physical Exam Irregular mild decreased breath sounds in left base Laboratory Laboratory Tests Test 12/11/17 15:28 12/11/17 21:10 12/12/17 05:01 White Blood Count 13.4 TH/MM3 8.5 TH/MM3 Red Blood Count 3.46 MIL/MM3 3.00 MIL/MM3 Hemoglobin 9.5 GM/DL 8.5 GM/DL Hematocrit 29.7 % 25.3 % Mean Corpuscular Volume 85.9 FL 84.4 FL Mean Corpuscular Hemoglobin 27.5 PG 28.4 PG Mean Corpuscular Hemoglobin Concent 32.0 % 33.6 % Red Cell Distribution Width 14.9 % 14.8 % Platelet Count 387 TH/MM3 284 TH/MM3 Mean Platelet Volume 7.9 FL 7.5 FL Neutrophils (%) (Auto) 71.9 % 70.2 % Lymphocytes (%) (Auto) 12.6 % 15.3 % Monocytes (%) (Auto) 12.9 % 11.1 % Eosinophils (%) (Auto) 1.9 % 2.7 % Basophils (%) (Auto) 0.7 % 0.7 % Neutrophils # (Auto) 9.6 TH/MM3 6.0 TH/MM3 Lymphocytes # (Auto) 1.7 TH/MM3 1.3 TH/MM3 Monocytes # (Auto) 1.7 TH/MM3 0.9 TH/MM3 Eosinophils # (Auto) 0.3 TH/MM3 0.2 TH/MM3 Basophils # (Auto) 0.1 TH/MM3 0.1 TH/MM3 CBC Comment DIFF FINAL DIFF FINAL Differential Comment Nasal Screen MRSA (PCR) MRSA NOT DETECTED Blood Urea Nitrogen 28 MG/DL Creatinine 1.34 MG/DL Random Glucose 83 MG/DL Calcium Level 8.3 MG/DL Sodium Level 141 MEQ/L Potassium Level 4.5 MEQ/L Chloride Level 103 MEQ/L Carbon Dioxide Level 28.7 MEQ/L Anion Gap 9 MEQ/L Estimat Glomerular Filtration Rate 37 ML/MIN Digoxin Level 1.4 NG/ML Assessment and Plan Assessment and Plan Continue amio infusion today and will switch to p.o. tomorrow. Will pulse with increased dose of lasix today. Hopefully home Thursday Rigo Landers MD Dec 12, 2017 09:08
--- NOTE | 2017-12-12 19:21 | HHI.PR ---
Subjective Remarks No new complaints. Objective Vitals Vital Signs Date Time Temp Pulse Resp B/P (MAP) Pulse Ox O2 Delivery O2 Flow Rate FiO2 12/12/17 18:00 96 12/12/17 16:00 87 12/12/17 16:00 97.6 87 20 127/57 (80) 93 12/12/17 14:00 98 12/12/17 12:00 98.6 85 19 105/53 (70) 91 12/12/17 12:00 85 12/12/17 10:00 84 12/12/17 08:00 85 12/12/17 08:00 98.4 95 21 102/60 (74) 96 12/12/17 07:30 97 Nasal Cannula 2.00 12/12/17 07:15 85 102/60 12/12/17 07:00 99 Nasal Cannula 3.00 12/12/17 06:00 78 12/12/17 05:44 73 112/55 12/12/17 05:00 82 114/53 12/12/17 04:00 81 12/12/17 04:00 98.0 81 27 134/60 (84) 12/12/17 02:00 84 12/12/17 00:00 98.7 96 18 107/58 (74) 95 12/12/17 00:00 96 12/11/17 22:50 89 99/58 12/11/17 22:00 104 12/11/17 22:00 98 Nasal Cannula 3.00 12/11/17 21:49 110 106/54 12/12/17 12/12/17 12/13/17 14:59 22:59 06:59 Intake Total 360 ml Output Total 450 ml Balance -90 ml Intake Oral 360 ml Output Urine Total 450 ml # Voids 2 # Bowel Movements 0 Result Diagram: 12/12/17 0501 12/12/17 0501 Imaging Last Impressions Chest X-Ray 12/09/17 0800 Signed Impressions: Service Date/Time: Saturday, December 09, 2017 10:45 - CONCLUSION: Persistent mild interstitial edema Minimal consolidative changes right base improved in the interval. Geremias Ritchie MD FACR Myocardial Perfusion Scan Nuc Med 12/08/17 0000 Signed Impressions: Service Date/Time: Friday, December 08, 2017 14:31 - CONCLUSION: 1. Small fixed defect in the apex with hypokinesis. No reversible ischemic segments are identified. RISK CATEGORY: Intermediate (1-3%% Annual Mortality Rate) Rigo Ashby MD Lower Extremity Ultrasound 12/07/17 0000 Signed Impressions: Service Date/Time: Thursday, December 07, 2017 18:06 - CONCLUSION: Normal examination. Juan Diego Wiggins MD Objective Remarks General: NAD, AAOx3 Chest: CTA Cardiac: Regular Abd: +BS, soft ND/NT Ext: Mild bilateral LE edema Procedures - Colonoscopy (12/09/17) with Dr. Hubert Head - EGD (12/09/17) with Dr. Hubert Head A/P Problem List: (1) A-fib ICD Codes: I48.91 - Unspecified atrial fibrillation Status: Chronic Plan: - improving - comgmt with Cardiology - tele: Afib RVR - Pt trending hypotensive - metoprolol 100mg BID (2 dose held d/t hypotension) - digoxin NOT continued d/t family objection - amiodarone - Xarelto on hold d/t GIB - observe (2) CHF (congestive heart failure) ICD Codes: I50.9 - Congestive heart failure Status: Chronic Plan: CHF (congestive heart failure) - Pt is an 87 y/o female with systolic/diastolic CHF with EF 35-45%, paroxysmal atrial fibrillation recently start on Xarelto, HTN, COPD, and CAD - Pt reported to the ED with history of progressive shortness of breath for past 2 weeks. - Pt takes Lasix 40mg po BID as an outpt. This is a decreased dose compared to what she had been on which was 80mg in AM and 40mg in PM. - last 2D echo (11/16/15) --> poor quality, EF 35-45%, diffuse hypokinesis, Grade I diastolic dysfunction - Her SOB worsened in the ED which improved with supplemental O2 - Pt was started on IV Lasix in the ED - CXR at admission noted there is a small right basilar opacity likely representing a small volume of pleural fluid and associated atelectasis or consolidation. - CXR (12/09) --> mild volume overload - LE US was negative for DVT - Her BNP has been in the 400s - BP has been low with systolic in the 100's - Change IV Lasix to 40mg PO BID (12/08) - 2D echo Normal left ventricular size. Wall thickness is normal. The left ventricular systolic function is severely reduced with an estimated ejection fraction less than 20%. Mitral annular calcification is present. Severe mitral valve regurgitation. mild mitral valve stenosis, mean gradient = 5 mm hg Trace aortic valve regurgitation. Aortic valve sclerosis is present. mean gradient = 10 mm hg with decreased ef c/w mild to moderate stenosis There is a trivial pericardial effusion present. severe tr, pap=44 mm hg - Pt unable to tolerate Entreso. Entreso stopped - observe overnight GI bleed - comgmt with GI - Pt has had some noted GIB for a few weeks that began after she was disimpacted in the ED on 11/02/17 - Her H/H has decreased from October 2017 from Hgb 13 to 9 at admission - Colonoscopy (12/09/17) with Dr. 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 - EGD (12/09/17) with Dr. Hubert Head - Esophagus normal - Stomach mild gastritis with small ulceration - Duodenum normal - No sign of active bleeding - GI recommending caution & minimal dosing with anticoagulants. - Xarelto is held - f/u with GI in 2 weeks after discharge (3) GI bleed ICD Codes: K92.2 - Gastrointestinal hemorrhage, unspecified Status: Acute Problem Qualifiers (1) A-fib: Qualified Codes: I48.1 - Persistent atrial fibrillation (2) GI bleed: Qualified Codes: K92.2 - Gastrointestinal hemorrhage, unspecified Braden Whipple DO Dec 12, 2017 19:21
[2017-12-12] MEDS: PANTOPRAZOLE SODIUM 40 MG VIAL IV PUSH SCH (20:58)
[2017-12-13] VITALS (8 sets, daily range): BP systolic 92–138; BP diastolic 50–64; PULSE 57–78; RESP 16–22; TEMP 97–98.3; O2SAT 96–98
[2017-12-13] MEDS: ACETAMINOPHEN/HYDROcodone 325 MG/5 MG TAB PO PRN (02:20)
[2017-12-13] MEDS: CHLORHEXIDINE GLUCONATE 2 % 1 PACK (2 CLOTHS)(taper/protocol) TOPICAL SCH (04:00)
[2017-12-13] MEDS: METOPROLOL TARTRATE 100 MG TAB PO SCH (08:07)
[2017-12-13] MEDS: POTASSIUM CHLORIDE 20 MEQ CONTROLLED RELEASE TAB PO SCH (08:07)
[2017-12-13] MEDS: DOCUSATE SODIUM 50 MG/SENNA 8.6 MG TAB PO SCH (08:07)
[2017-12-13] MEDS: SODIUM CHLORIDE 0.9% FLUSH 10 ML FLUSH IV FLUSH SCH (08:08)
[2017-12-13] MEDS: FUROSEMIDE 40 MG TAB PO SCH (08:08)
--- NOTE | 2017-12-13 09:16 | PD.CARD.PN ---
Subjective Subjective Remarks Episode of RVR last night. Given amiodarone and rate controlled. No chest pain or dyspnea. CXR unchanged with hilar fullness Objective Medications Current Medications Medications (Trade) Dose Ordered Sig/Chon Route Start Time Stop Time Status Last Admin (Lopressor) 100 mg BID PO 12/07/17 21:00 12/13/17 08:07 (KCl) 20 meq BID PO 12/07/17 21:00 12/13/17 08:07 (NS Flush) 2 ml UNSCH PRN IV FLUSH 12/07/17 19:30 12/09/17 07:50 (NS Flush) 2 ml BID IV FLUSH 12/07/17 21:00 12/13/17 08:08 (Tylenol) 650 mg Q4H PRN PO 12/07/17 19:30 12/11/17 17:46 (Narcan Inj) 0.4 mg UNSCH PRN IV PUSH 12/07/17 19:30 (Leta-Colace) 1 tab BID PO 12/07/17 21:00 12/13/17 08:07 (Milk Of Magnesia Liq) 30 ml Q12H PRN PO 12/07/17 19:30 (Senokot) 17.2 mg Q12H PRN PO 12/07/17 19:30 (Dulcolax Supp) 10 mg DAILY PRN RECTAL 12/07/17 19:30 (Lactulose Liq) 30 ml DAILY PRN PO 12/07/17 19:30 (Protonix Inj) 40 mg Q24H IV PUSH 12/07/17 22:00 12/12/17 20:58 (Salix 5-325 Mg) 1 tab Q4H PRN PO 12/11/17 18:45 12/13/17 02:20 Miscellaneous Information Patient in critical care unit? Ass... [id number] .XX 12/11/17 21:15 12/11/17 21:15 (Chlorhexidine 2% Cloth) 3 pack DAILY@04 TOPICAL 12/12/17 04:00 12/16/17 04:01 12/13/17 04:00 (Chlorhexidine 2% Cloth) 3 pack UNSCH PRN TOPICAL 12/11/17 21:15 12/16/17 21:10 Amiodarone HCl 450 mg/Sodium Chloride 250 ml @ 33.33 mls/ hr TITRATE PRN IV 12/11/17 21:30 12/12/17 20:35 (Lasix) 80 mg BID@,18 PO 12/12/17 18:00 12/13/17 08:08 Vital Signs / I&O Vital Signs Date Time Temp Pulse Resp B/P (MAP) Pulse Ox O2 Delivery O2 Flow Rate FiO2 12/13/17 07:36 98 Nasal Cannula 2.00 12/13/17 06:00 73 12/13/17 04:00 76 12/13/17 04:00 97.0 76 17 92/50 (64) 96 12/13/17 02:00 75 12/13/17 00:00 98.0 78 22 112/51 (71) 96 12/13/17 00:00 78 12/12/17 22:00 77 12/12/17 20:35 106 126/60 12/12/17 20:21 95 Nasal Cannula 2.00 12/12/17 20:00 98.6 94 21 113/55 (74) 95 12/12/17 20:00 94 12/12/17 19:00 95 Nasal Cannula 2.00 12/12/17 18:00 96 12/12/17 16:00 87 12/12/17 16:00 97.6 87 20 127/57 (80) 93 12/12/17 14:00 98 12/12/17 12:00 98.6 85 19 105/53 (70) 91 12/12/17 12:00 85 12/12/17 10:00 84 I/O 12/12/17 12/12/17 12/12/17 12/13/17 12/13/17 12/13/17 07:00 15:00 23:00 07:00 15:00 23:00 Intake Total 322 ml 360 ml 700 ml Output Total 450 ml 1600 ml Balance 322 ml -90 ml -900 ml Intake Oral 100 ml 360 ml 700 ml IV Total 222 ml Output Urine Total 450 ml 1600 ml Stool Total 0 ml # Voids 2 2 6 # Bowel Movements 0 0 0 Physical Exam Irregular mild decreased breath sounds in left base Assessment and Plan Assessment and Plan Will stop iv amio and switch to p.o.. Hopefully home Thursday Rigo Landers MD Dec 13, 2017 09:16
--- NOTE | 2017-12-13 09:24 | RADRPT ---
EXAM DATE/TIME: 12/13/2017 08:59 [facility] COMPARISON: CHEST SINGLE AP, December 12, 2017, 7:45. INDICATIONS : Short of breath. MEDICAL HISTORY : Myocardial infarction. Congestive heart failure. Hypercholesterolemia. Dizziness. Hypertension. Dyspn ea. Gastroesophageal reflux disease. Arthritis. Osteoporosis. SURGICAL HISTORY : Appendectomy. Cholecystectomy. Cardiac catheterization. ENCOUNTER: Subsequent ACUITY: 4 - 6 days PAIN SCORE: 0/10 LOCATION: Bilateral chest FINDINGS: Improvement with better aeration and less interstitial edema. Resolving is unchanged as right lower lobe. Stable cardiomegaly. CONCLUSION: Improvement with less interstitial edema and parenchymal opacity right base.. Geremias Ritchie MD FACR on December 13, 2017 at 9:23 Board Certified Radiologist. This report was verified electronically.
[2017-12-13] MEDS ORDERED: AMIO200T PO (10:19)
--- NOTE | 2017-12-13 10:27 | HHI.DS ---
Discharge Summary Admission Date Dec 07, 2017 at 18:42 Discharge Date: Dec 13, 2017 Admitting Diagnosis CHF, GI bleed, outpatient treatment failure (1) A-fib Diagnosis: Principal ICD Codes: I48.91 - Unspecified atrial fibrillation Status: Chronic (2) CHF (congestive heart failure) Diagnosis: Principal ICD Codes: I50.9 - Congestive heart failure Status: Chronic (3) GI bleed Diagnosis: Principal ICD Codes: K92.2 - Gastrointestinal hemorrhage, unspecified Status: Acute Consultants Dr. Landers, Cardiology Dr. Farnsworth, GI Procedures - Colonoscopy (12/09/17) with Dr. Hubert Head - EGD (12/09/17) with Dr. Hubert Head Brief History 87-year-old female came to the emergency room brought by her daughter with history of progressive shortness of breath for past 2 weeks. Patient was diagnosed with congestive heart failure by her primary care weeks ago and was started on Lasix. Daughter said initially it was 120 mg a day and after few days when she started feeling better was brought down to 80 mg a by her supervisor cleaning and annealing. Also she was diagnosed with A. fib and was started on Xarelto 3 weeks ago. She started having dark tarry stool because of which the supervisor cleaning and annealing wanted her to be seen by GI specialist. She was supposed to go back and see the supervisor cleaning and annealing tomorrow and has a GI appointment in another couple days. However since her condition was not looking good the daughter decided to bring her to the emergency room today. After being brought from the triage when she was moved from the wheelchair to the stretcher patient started going to severe respiratory distress She denies any chest pain. She was put on oxygen and after laying still for a few minutes her bleeding started to improve. No history of fever or chill. Patient did receive IV lasix . Will admit and obtain cardiac evaluation did have echo in past which showed grade 1 diastolic dysfunction and at one time was on toby inhibitors. CBC/BMP: 12/12/17 0501 12/12/17 0501 Significant Findings Laboratory Tests Test 12/11/17 04:10 12/11/17 15:28 12/11/17 21:10 12/12/17 05:01 White Blood Count 11.3 TH/MM3 (4.0-11.0) 13.4 TH/MM3 (4.0-11.0) Red Blood Count 3.27 MIL/MM3 (4.00-5.30) 3.46 MIL/MM3 (4.00-5.30) 3.00 MIL/MM3 (4.00-5.30) Hemoglobin 9.1 GM/DL (11.6-15.3) 9.5 GM/DL (11.6-15.3) 8.5 GM/DL (11.6-15.3) Hematocrit 27.9 % (35.0-46.0) 29.7 % (35.0-46.0) 25.3 % (35.0-46.0) Monocytes (%) (Auto) 11.8 % (0.0-8.0) 12.9 % (0.0-8.0) 11.1 % (0.0-8.0) Neutrophils # (Auto) 7.9 TH/MM3 (1.8-7.7) 9.6 TH/MM3 (1.8-7.7) Monocytes # (Auto) 1.3 TH/MM3 (0-0.9) 1.7 TH/MM3 (0-0.9) Blood Urea Nitrogen 30 MG/DL (7-18) 28 MG/DL (7-18) Creatinine 1.60 MG/DL (0.50-1.00) 1.34 MG/DL (0.50-1.00) Calcium Level 8.4 MG/DL (8.5-10.1) 8.3 MG/DL (8.5-10.1) Carbon Dioxide Level 32.2 MEQ/L (21.0-32.0) Estimat Glomerular Filtration Rate 30 ML/MIN (>89) 37 ML/MIN (>89) Neutrophils (%) (Auto) 71.9 % (16.0-70.0) 70.2 % (16.0-70.0) Imaging Last Impressions Chest X-Ray 12/13/17 0800 Signed Impressions: Service Date/Time: Wednesday, December 13, 2017 08:59 - CONCLUSION: Improvement with less interstitial edema and parenchymal opacity right base.. Geremias Ritchie MD FACR Myocardial Perfusion Scan Nuc Med 12/08/17 0000 Signed Impressions: Service Date/Time: Friday, December 08, 2017 14:31 - CONCLUSION: 1. Small fixed defect in the apex with hypokinesis. No reversible ischemic segments are identified. RISK CATEGORY: Intermediate (1-3%% Annual Mortality Rate) Rigo Ashby MD Lower Extremity Ultrasound 12/07/17 0000 Signed Impressions: Service Date/Time: Thursday, December 07, 2017 18:06 - CONCLUSION: Normal examination. Juan Diego Wiggins MD PE at Discharge General: NAD, AAOx3 Chest: CTA Cardiac: irregular Abd: +BS, soft ND/NT Ext: Mild bilateral LE edema Hospital Course A-fib - tele: Afib RVR - metoprolol 100mg BID - amiodarone drip initially for A Fib RVR -> transitioned to PO, will DC on PO Amiodarone - start IV digoxin - IVF 500ml - digoxin level in AM - Xarelto on hold d/t GIB - observe CHF (congestive heart failure) - Pt is an 87 y/o female with systolic/diastolic CHF with EF 35-45%, paroxysmal atrial fibrillation recently start on Xarelto, HTN, COPD, and CAD - Pt reported to the ED with history of progressive shortness of breath for past 2 weeks. - Pt takes Lasix 40mg po BID as an outpt. This is a decreased dose compared to what she had been on which was 80mg in AM and 40mg in PM. - last 2D echo (11/16/15) --> poor quality, EF 35-45%, diffuse hypokinesis, Grade I diastolic dysfunction - Her SOB worsened in the ED which improved with supplemental O2 - Pt was started on IV Lasix in the ED - CXR at admission noted there is a small right basilar opacity likely representing a small volume of pleural fluid and associated atelectasis or consolidation. - CXR (12/09) --> mild volume overload - LE US was negative for DVT - Her BNP has been in the 400s - BP has been low with systolic in the 100's - Change IV Lasix to 40mg PO BID (12/08) - 2D echo Normal left ventricular size. Wall thickness is normal. The left ventricular systolic function is severely reduced with an estimated ejection fraction less than 20%. Mitral annular calcification is present. Severe mitral valve regurgitation. mild mitral valve stenosis, mean gradient = 5 mm hg Trace aortic valve regurgitation. Aortic valve sclerosis is present. mean gradient = 10 mm hg with decreased ef c/w mild to moderate stenosis There is a trivial pericardial effusion present. severe tr, pap=44 mm hg - Pt unable to tolerate Entreso due to hypotension. Entreso stopped GI bleed - comgmt with GI - Pt has had some noted GIB for a few weeks that began after she was disimpacted in the ED on 11/02/17 - Her H/H has decreased from October 2017 from Hgb 13 to 9 at admission - Colonoscopy (12/09/17) with Dr. 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 - EGD (12/09/17) with Dr. Hubert Head - Esophagus normal - Stomach mild gastritis with small ulceration - Duodenum normal - No sign of active bleeding - GI recommending caution & minimal dosing with anticoagulants. - Xarelto is held - f/u with GI in 2 weeks after discharge - Case discussed by Dr. Whipple with Dr. Landers cleared patient for DC home today Pt Condition on Discharge: Stable Discharge Disposition: Disch w/ Home Health Serv Discharge Instructions DIET: Follow Instructions for: Heart Healthy Diet Activities you can perform: Regular-No Restrictions Follow up Referrals: Cardiology - [address] Landers Gastroenterology - 2 Weeks with Hubert Head MD PCP Follow-up - [address] Acosta New Medications: Oxygen (O2) (Oxygen (O2)) Device LITER JOE.CANULA CONTINUOUS for Prevent Hypoxemia, #2 Oxygen Concentrator Portable Gaseous 2 L/min via Nasal Canula Continuous For 1 month Oxygen tank (Oxygen tank) 1 Ea Tank LITER JOE.CANULA CONTINUOUS for HYPOXEMIA PREVENTION, #2 Oxygen Concentrator Portable Gaseous 2 L/min via Nasal Cannula Continuous For 1 month Pantoprazole (Protonix) 40 Mg Tab 40 MG PO DAILY for Ulcer Prevention, #30 TAB 0 Refills Walker with Front Wheels (Walker with Front Wheels) 1 Mis Mis EA .XX DIRECTED, #1 0 Refills Amiodarone (Amiodarone) 200 Mg Tab 200 MG PO DAILY for A Fib, #30 TAB 0 Refills Continued Medications: Furosemide (Lasix) 40 Mg Tab 40 MG PO BID, #60 TAB 0 Refills Take 40 mg in the morning and 40 mg around 2 PM. Metoprolol Tartrate (Metoprolol Tartrate) 100 Mg Tab 100 MG PO BID, #60 TAB 0 Refills Potassium Chloride ER (Potassium Chloride ER) 20 Meq Tab 20 MEQ PO BID for Electrolyte Replacement, #60 TAB 0 Refills Discontinued Medications: Aspirin DR (Ecotrin Low Strength) 81 Mg Tabdr 81 MG PO DAILY, #30 TAB 0 Refills Additional Information Patient examined. Assessment and plan formulated with Libra Lilly PA-C. I agree with the above. Libra Lilly Dec 13, 2017 10:27 Braden Whipple DO Dec 14, 2017 11:30
[2017-12-13 10:47] LABS: AUTOMATED NEUTROPHIL # 7.7 TH/MM3 (1.8-7.7); BASOPHIL # 0.1 TH/MM3 (0-0.2); BASOPHIL % 1.1 % (0.0-2.0); EOSINOPHIL # 0.3 TH/MM3 (0-0.4); EOSINOPHIL % 2.9 % (0.0-4.0); HEMATOCRIT 30.7 % (35.0-46.0); HEMOGLOBIN 9.9 GM/DL (11.6-15.3); LYMPH % 10.9 % (9.0-44.0); LYMPHOCYTE # 1.2 TH/MM3 (1.0-4.8); MEAN CELL VOLUME 86.1 FL (80.0-100.0); MEAN CORPUSCULAR HEMOGLOBIN 27.9 PG (27.0-34.0); MEAN CORPUSCULAR HGB CONC 32.4 % (32.0-36.0); MEAN PLATELET VOLUME 7.5 FL (7.0-11.0); MONO % 13.4 % (0.0-8.0); MONOCYTE # 1.4 TH/MM3 (0-0.9); NEUT % 71.7 % (16.0-70.0); PLATELET COUNT 348 TH/MM3 (150-450); RED BLOOD COUNT 3.57 MIL/MM3 (4.00-5.30); RED CELL DISTRIBUTION WIDTH 14.7 % (11.6-17.2); WHITE BLOOD COUNT 10.8 TH/MM3 (4.0-11.0)
[2017-12-13 10:59] LABS: BICARBONATE 30.5 MEQ/L (21.0-32.0); CALCIUM 8.5 MG/DL (8.5-10.1); CREATININE 1.33 MG/DL (0.50-1.00); MAGNESIUM 2.4 MG/DL (1.5-2.5)
[2017-12-14] MEDS ORDERED: AMIODARONE 200 MG TAB PO SCH (09:00)
== END 2017-12-13 12:55 | disposition home health service (06) | DRG 291 ==
LOC: NEPE 16:10 → NEDA 18:42 → N07B 19:47 → HIMW 12-11 20:40
PROVIDERS: ADMIT Hospitalist; ATTEND Hospitalist
PROC: 0D5P8ZZ Destruction of Rectum, Via Natural or Artificial Opening Endoscopic (ICD-10-PCS; 2017-12-09)
PROC: 0D5K8ZZ Destruction of Ascending Colon, Via Natural or Artificial Opening Endoscopic (ICD-10-PCS; 2017-12-09)
PROC: 0D5H8ZZ Destruction of Cecum, Via Natural or Artificial Opening Endoscopic (ICD-10-PCS; 2017-12-09)
PROC: 0DBN8ZX Excision of Sigmoid Colon, Via Natural or Artificial Opening Endoscopic, Diagnostic (ICD-10-PCS; principal; 2017-12-09 07:59)
PROC: 0DB78ZX Excision of Stomach, Pylorus, Via Natural or Artificial Opening Endoscopic, Diagnostic (ICD-10-PCS; 2017-12-09 07:59)
DX: I11.0 Hypertensive heart disease with heart failure (principal); K55.21 Angiodysplasia of colon with hemorrhage; I95.9 Hypotension, unspecified; I48.1 Persistent atrial fibrillation; R06.03 Acute respiratory distress; I48.0 Paroxysmal atrial fibrillation; D64.9 Anemia, unspecified; J98.11 Atelectasis; I50.42 Chronic combined systolic (congestive) and diastolic (congestive) heart failure; I05.0 Rheumatic mitral stenosis; I44.7 Left bundle-branch block, unspecified; K21.9 Gastro-esophageal reflux disease without esophagitis; E78.00 Pure hypercholesterolemia, unspecified; M19.90 Unspecified osteoarthritis, unspecified site; K59.00 Constipation, unspecified; R60.0 Localized edema; I25.10 Atherosclerotic heart disease of native coronary artery without angina pectoris; K63.5 Polyp of colon; K62.1 Rectal polyp; N39.3 Stress incontinence (female) (male); Z87.891 Personal history of nicotine dependence; I25.2 Old myocardial infarction; Z85.828 Personal history of other malignant neoplasm of skin
CPT/HCPCS: 36600; 71045; 71046; 78452; 80048; 80162; 82805; 83735; 83880; 84484; 85025; 85379; 85610; 86850; 86900; 86901; 87040; 87641; 88305; 88312; 93005; 93017; 93306; 93971; 94618; 94640; 94664; A9502; C9113; J0282; J1160; J1940; J2370; J2785; J7040; J7050; J7120

== ENCOUNTER 2018-02-14 04:01 | Inpatient (IN) | payer MEDICARE ==
[~2018-02-14] VITALS: Ht 152.4 cm; Wt 83.2 kg
[2018-02-14] VITALS (8 sets, daily range): BP systolic 97–122; BP diastolic 53–58; PULSE 65–81; RESP 17–20; TEMP 97.5–98.7; O2SAT 92–99
[~2018-02-14 04:01] MED LIST changes: +AMIO200T PO; -ECOT81TA2 PO; -FURO1TAB93 PO; +OXYGENDME NAS.CANULA; +OXYGENTANK NAS.CANULA; +POTA-163 PO; -POTA-243 PO; +PROT40TA PO; +WALKER WHEELS/F1 MIS; -XARE20TA PO
[2018-02-14] MEDS ORDERED: FUROSEMIDE 40 MG/4 ML VIAL IVP ONE (05:00)
--- NOTE | 2018-02-14 05:01 | PD ---
HPI Chief Complaint: Edema Time Seen by Provider: 04:56 Travel History International Travel<30 days: No Contact w/Intl Traveler<30days: No Traveled to known affect area: No History of Present Illness HPI 87-year-old female presents to the emergency department by EMS transport for evaluation of lower extremity pain and swelling. Patient is also noted shortness of breath. Patient has history of CHF valvular heart disease and atrial fibrillation. Patient reports symptoms of worsened over the last 24 hours but has had progressively worsening swelling of the lower extremity over the past several weeks. Patient is taking Lasix 40 mg twice daily and to take both of her doses of Lasix on Thursday. Patient states due to the amount of swelling in her legs and the pain with attempting to weight-bear decided to come to the hospital. Patient has appointment with her primary care provider February 18. Patient denies any fever or chills. Patient's had no nausea or vomiting. Patient had transient chest pain that has resolved and has not been recurrent. Patient's had no fall or injury. Patient has chronic 2 pillow orthopnea. Patient's had no PND. Patient is on no blood thinning agents due to GI bleed in November 2017. [facility] Past Medical History Narrative Medical CAD [place] atrial fibrillation CHF hypertension dyslipidemia peripheral vascular disease; nursing notes reviewed Arthritis: Yes Asthma: No Blood Disorders: No Anxiety: No Depression: No Heart Rhythm Problems: No Cancer: Yes (SKIN CANCER) Cardiac Catheterization: Yes Cardiovascular Problems: Yes (CHF) High Cholesterol: Yes Chest Pain: No Congestive Heart Failure: Yes COPD: No Cerebrovascular Accident: No Diabetes: No Diminished Hearing: No Gastrointestinal Disorders: Yes (current admission black stools) GERD: Yes Genitourinary: Yes (STRESS INCONTINENCE) Headaches: Yes Hepatitis: No Hiatal Hernia: No Hypertension: Yes Neurologic: Yes Psychiatric: No Respiratory: Yes Immunizations Current: No Migraines: No Myocardial Infarction: Yes (17 years ago) Seizures: No Sleep Apnea: No Ulcer: No Menopausal: Yes Past Surgical History AICD: No Appendectomy: Yes Cholecystectomy: Yes Hysterectomy: Yes Pacemaker: No Other Surgery: Yes (WILIAN) Family History Family Myocardial Infarction: Yes (SIBLINGS AND MOTHER) Social History Alcohol Use: No Tobacco Use: No (QUIT 15 YEARS AGO) Substance Use: No Allergies-Medications (Allergen,Severity, Reaction): Coded Allergies: aspirin (Unverified Allergy, Severe, 02/14/18) codeine (Unverified Allergy, Severe, 02/14/18) morphine (Unverified Allergy, Severe, 02/14/18) Reported Meds & Prescriptions Reported Meds & Active Scripts Active Amiodarone (Amiodarone HCl) 200 Mg Tab 200 Mg PO DAILY Protonix (Pantoprazole Sodium) 40 Mg Tab 40 Mg PO DAILY Oxygen tank (Oxygen) 1 Ea Tank Liter JOE.CANULA CONTINUOUS Oxygen Concentrator Portable Gaseous 2 L/min via Nasal Cannula Continuous For 1 month Oxygen (O2) Device Liter JOE.CANULA CONTINUOUS Oxygen Concentrator Portable Gaseous 2 L/min via Nasal Canula Continuous For 1 month Walker with Front Wheels (Device) 1 Mis Mis Ea .XX DIRECTED Lasix (Furosemide) 40 Mg Tab 40 Mg PO BID Take 40 mg in the morning and 40 mg around 2 PM. Reported Potassium Chloride ER (Potassium Chloride) 20 Meq Tab 20 Meq PO BID Metoprolol Tartrate 100 Mg Tab 100 Mg PO BID Review of Systems Except as stated in HPI: all other systems reviewed are Neg Physical Exam Narrative GENERAL: Well-developed well-nourished elderly female in no acute distress no respiratory distress with supplemental oxygen SKIN: Warm and dry. HEAD: Normocephalic. EYES: No scleral icterus. No injection or drainage. NECK: Supple, trachea midline. No JVD or lymphadenopathy. CARDIOVASCULAR: Regular rate and rhythm without murmurs, gallops, or rubs. RESPIRATORY: Breath sounds equal bilaterally. No accessory muscle use. GASTROINTESTINAL: Abdomen soft, non-tender, nondistended. MUSCULOSKELETAL: No cyanosis, bilateral lower extremity pitting edema. BACK: Nontender without obvious deformity. No CVA tenderness. Data Data Last Documented VS Vital Signs Date Time Temp Pulse Resp B/P (MAP) Pulse Ox O2 Delivery O2 Flow Rate FiO2 02/14/18 04:16 69 17 92 Room Air 02/14/18 04:11 98.7 122/58 (79) Orders Orders Complete Blood Count With Diff (02/14/18 04:56) Basic Metabolic Panel (Bmp) (02/14/18 04:56) B-Type Natriuretic Peptide (02/14/18 04:56) Act Partial Throm Time (Ptt) (02/14/18 04:56) Prothrombin Time / Inr (Pt) (02/14/18 04:56) Magnesium (Mg) (02/14/18 04:56) Ckmb (Isoenzyme) Profile (02/14/18 04:56) Troponin I (02/14/18 04:56) Urinalysis - C+S If Indicated (02/14/18 04:56) Iv Access Insert/Monitor (02/14/18 04:56) Electrocardiogram (02/14/18 04:56) Ecg Monitoring (02/14/18 04:56) Oximetry (02/14/18 04:56) Oxygen Administration (02/14/18 04:56) Chest, Single Ap (02/14/18 04:56) Sodium Chloride 0.9% Flush (Ns Flush) (02/14/18 05:00) Furosemide Inj (Lasix Inj) (02/14/18 05:00) Labs Laboratory Tests Test 02/14/18 05:20 White Blood Count 11.5 TH/MM3 Red Blood Count 4.23 MIL/MM3 Hemoglobin 8.8 GM/DL Hematocrit 29.3 % Mean Corpuscular Volume 69.3 FL Mean Corpuscular Hemoglobin 20.9 PG Mean Corpuscular Hemoglobin Concent 30.2 % Red Cell Distribution Width 22.4 % Platelet Count 345 TH/MM3 Mean Platelet Volume 7.7 FL Neutrophils (%) (Auto) 74.9 % Lymphocytes (%) (Auto) 9.2 % Monocytes (%) (Auto) 13.0 % Eosinophils (%) (Auto) 2.0 % Basophils (%) (Auto) 0.9 % Neutrophils # (Auto) 8.6 TH/MM3 Lymphocytes # (Auto) 1.1 TH/MM3 Monocytes # (Auto) 1.5 TH/MM3 Eosinophils # (Auto) 0.2 TH/MM3 Basophils # (Auto) 0.1 TH/MM3 CBC Comment DIFF FINAL Differential Comment Prothrombin Time 11.3 SEC Prothromb Time International Ratio 1.1 RATIO Activated Partial Thromboplast Time 30.8 SEC Blood Urea Nitrogen 34 MG/DL Creatinine 2.43 MG/DL Random Glucose 91 MG/DL Calcium Level 8.6 MG/DL Magnesium Level 2.6 MG/DL Sodium Level 138 MEQ/L Potassium Level 3.4 MEQ/L Chloride Level 101 MEQ/L Carbon Dioxide Level 27.4 MEQ/L Anion Gap 10 MEQ/L Estimat Glomerular Filtration Rate 19 ML/MIN Total Creatine Kinase 45 U/L Troponin I LESS THAN 0.02 NG/ML B-Type Natriuretic Peptide 369 PG/ML MDM Medical Decision Making Medical Screen Exam Complete: Yes Emergency Medical Condition: Yes Medical Record Reviewed: Yes Interpretation(s) Chest x-ray: Cardiomegaly with right pleural effusion EKG: Atrial fibrillation with controlled ventricular rate 70 left axis deviation left bundle branch block Differential Diagnosis CHF, anasarca, anemia, ACS, [place], PE, DVT, cellulitis Narrative Course Patient placed on cardiac nurse specialist with continuous pulse oximetry IV access obtained specimens collected and sent for resulting patient administered Lasix 40 mg IV Patient resting comfortably with bilateral lower extremity pitting edema CBC with automated differential hemoglobin 8.8 this is decreased from last hemoglobin of 9.9; rectal exam performed normal sphincter tone brown stool that is Hemoccult negative Patient identified to have worsening renal function; BNP 369; CK and troponin values in normal range Patient noting breathing more comfortably after Lasix 1 dose Patient be admitted for dyspnea related to anemia CHF pleural effusion and worsening acute on chronic renal insufficiency HemaPrompt Point of Care Internal Pos. & Neg. Controls: Passed Fecal Specimen Occult Blood: Negative Physician Communication Physician Communication call placed to [facility] MD Diagnosis Primary Impression: Dyspnea Additional Impressions: CHF (congestive heart failure) Pleural effusion on left Anemia Acute on chronic renal insufficiency Admitting Information Admitting Physician Requests: Admit Dionne Hall MD February 14, 2018 05:01
[2018-02-14 05:55] LABS: INTERNATIONAL NORMALIZED RATIO 1.1 RATIO; PROTHROMBIN TIME - PATIENT 11.3 SEC (9.8-11.6)
[2018-02-14 05:58] LABS: BICARBONATE 27.4 MEQ/L (21.0-32.0); BLOOD UREA NITROGEN 34 MG/DL (7-18); CALCIUM 8.6 MG/DL (8.5-10.1); CHLORIDE 101 MEQ/L (98-107); CREATININE 2.43 MG/DL (0.50-1.00); GLOMERULAR FILTRATION RATE 19 ML/MIN (>89); GLUCOSE,RANDOM 91 MG/DL (74-106); MAGNESIUM 2.6 MG/DL (1.5-2.5); SODIUM (NA) 138 MEQ/L (136-145)
[2018-02-14 06:00] LABS: AUTOMATED NEUTROPHIL # 8.6 TH/MM3 (1.8-7.7); BASOPHIL # 0.1 TH/MM3 (0-0.2); BASOPHIL % 0.9 % (0.0-2.0); EOSINOPHIL # 0.2 TH/MM3 (0-0.4); HEMATOCRIT 29.3 % (35.0-46.0); HEMOGLOBIN 8.8 GM/DL (11.6-15.3); LYMPH % 9.2 % (9.0-44.0); LYMPHOCYTE # 1.1 TH/MM3 (1.0-4.8); MEAN CELL VOLUME 69.3 FL (80.0-100.0); MEAN CORPUSCULAR HEMOGLOBIN 20.9 PG (27.0-34.0); MEAN CORPUSCULAR HGB CONC 30.2 % (32.0-36.0); MEAN PLATELET VOLUME 7.7 FL (7.0-11.0); MONOCYTE # 1.5 TH/MM3 (0-0.9); NEUT % 74.9 % (16.0-70.0); PLATELET COUNT 345 TH/MM3 (150-450); RED BLOOD COUNT 4.23 MIL/MM3 (4.00-5.30); RED CELL DISTRIBUTION WIDTH 22.4 % (11.6-17.2); WHITE BLOOD COUNT 11.5 TH/MM3 (4.0-11.0)
[2018-02-14 06:03] LABS: TROPONIN I LESS THAN 0.02 NG/ML (0.02-0.05)
--- NOTE | 2018-02-14 06:23 | RADRPT ---
EXAM DATE/TIME: 02/14/2018 04:59 [facility] COMPARISON: CHEST SINGLE AP, December 13, 2017, 8:59. INDICATIONS : Painful bilateral lower extremity edema. MEDICAL HISTORY : Myocardial infarction. Congestive heart failure. Hypercholesterolemia. Hypertension GERD Arthriti s SURGICAL HISTORY : Appendectomy. Cholecystectomy. ENCOUNTER: Initial ACUITY: 1 day PAIN SCORE: 0/10 LOCATION: Bilateral chest FINDINGS: Right base infiltrate and effusion has shown some slight increase in confluence. Left lung remains cl ear. Cardiac contours are grossly stable. CONCLUSION: Worsening right base infiltrate and effusion Zohaib Cuellar MD on February 14, 2018 at 6:20 Board Certified Radiologist. This report was verified electronically.
[2018-02-14] MEDS ORDERED: ACETAMINOPHEN 1000 MG/100 ML 100 ML IV ONE (08:45)
[2018-02-14] MEDS ORDERED: ONDANSETRON HCL 4 MG/2 ML VIAL IV PRN (08:45)
[2018-02-14] MEDS: METOPROLOL TARTRATE 100 MG TAB PO SCH ×2 (08:47→20:21)
[2018-02-14] MEDS: AMIODARONE 200 MG TAB PO SCH (09:01)
[2018-02-14] MEDS: PANTOPRAZOLE SOD 40 MG DELAYED RELEASE TAB PO SCH (09:01)
[2018-02-14] MEDS: POTASSIUM CHLORIDE 20 MEQ CONTROLLED RELEASE TAB PO SCH ×2 (09:01→20:20)
--- NOTE | 2018-02-14 09:27 | HHI.HP ---
HPI Service [facility] Hospitalists Primary Care Physician Tano Acosta M.D. Admission Diagnosis dyspnea; chf; acute/chronic renal insufficiency; anemia Chief Complaint: LE edema Travel History International Travel<30 Days: No Contact w/Intl Traveler <30 Da: No Traveled to Known Affected Are: No History of Present Illness Ms. Veloz is a pleasant 87 y/o female with systolic/diastolic CHF with EF 20% (echo in 11/2017), paroxysmal atrial fibrillation, HTN, COPD, and CAD. She presented to the ED at [facility] on 02/14/18 with complaints of worsening LE edema and pain. She reports that she has been compliant with her Lasix 40mg po BID and potassium 20mg po BID but for the last few weeks has noted some increasing pedal edema. Then yesterday she noted that she began having increasing swelling in bilateral LE to the knees and had increasing pain in bilateral feet and LE. She was unable to stand up last night due to the pain and this prompted her to come to the ED for further evaluation. Pts labs at admission noted a slight worsening of her baseline CKD with creatinine 2.43/BUN 34 and GFR 19. Her BNP is 369. CXR noted a worsening right base infiltrate and effusion. Her WBC count was 11.5 at admission. She is chronically on 2L of supplemental O2 and denies any worsening SOB or cough. The patient has chronic 2 pillow orthopnea. She denies any PND. She has been off blood thinners due to GI bleed in November 2017. Review of Systems Constitutional: DENIES: Fever, Chills Eyes: DENIES: Vision loss Ears, nose, mouth, throat: DENIES: Hearing loss Respiratory: DENIES: Cough Cardiovascular: COMPLAINS OF: Lower Extremity Edema, Orthopnea, DENIES: Chest pain, Palpitations, PND Gastrointestinal: DENIES: Abdominal pain, Constipation, Diarrhea, Nausea, Vomiting Genitourinary: DENIES: Hematuria, Dysuria Musculoskeletal: DENIES: Back pain Integumentary: DENIES: Rash Neurologic: DENIES: Headache Psychiatric: DENIES: Confusion Past Family Social History Past Medical History HTN Ischemic Cardiomyopathy Paroxysmal A. fib Systolic/diastolic CHF, EF less than 20% Valvular heart disease CAD, h/o PA in 2001 GIB Hyperlipidemia COPD OA 2D echo (12/09/17) - Normal left ventricular size. Wall thickness is normal. Estimated ejection fraction less than 20%. - Mitral annular calcification is present. Severe mitral valve regurgitation. Mild mitral valve stenosis, mean gradient = 5 mm hg - Trace aortic valve regurgitation. Aortic valve sclerosis is present. mean gradient = 10 mm hg with decreased ef c/w mild to moderate stenosis - There is a trivial pericardial effusion present. severe tr, pap=44 mm hg Past Surgical History Cholecystectomy Appendectomy Reported Medications Amiodarone (Amiodarone HCl) 200 Mg Tab 200 Mg PO DAILY Protonix (Pantoprazole Sodium) 40 Mg Tab 40 Mg PO DAILY Lasix (Furosemide) 40 Mg Tab 40 Mg PO BID Take 40 mg in the morning and 40 mg around 2 PM. Potassium Chloride ER (Potassium Chloride) 20 Meq Tab 20 Meq PO BID Metoprolol Tartrate 100 Mg Tab 100 Mg PO BID Allergies: Coded Allergies: aspirin (Unverified Allergy, Severe, 02/14/18) codeine (Unverified Allergy, Severe, 02/14/18) morphine (Unverified Allergy, Severe, 02/14/18) Family History Noncontributory Social History x 68 years Former smoker, stopped in 2001. 2 ppd x 50 years Occasional etoh No illicit street drugs Physical Exam Vital Signs Vital Signs Date Time Temp Pulse Resp B/P (MAP) Pulse Ox O2 Delivery O2 Flow Rate FiO2 02/14/18 06:45 77 18 120/55 (76) 99 Nasal Cannula 2.00 02/14/18 06:30 71 20 117/56 (76) 99 Nasal Cannula 2.00 02/14/18 06:29 99 Nasal Cannula 2.00 02/14/18 06:28 20 99 Room Air 02/14/18 04:16 69 17 92 Room Air 02/14/18 04:11 98.7 77 17 122/58 (79) 92 Physical Exam GENERAL: This is a well-nourished, well-developed patient, in no apparent distress. HEENT: Atraumatic. Normocephalic. No temporal or scalp tenderness. No scleral icterus. Airway patent. NECK: Trachea midline, supple, nontender. CARDIO: Regular. RESP: CTA bilaterally. No wheezes, rales, or rhonchi. ABD: +BS, soft, non-tender, nondistended. EXT: Bilateral LE pitting edema to the knees. NEURO: Awake and alert. Motor and sensory grossly within normal limits. Normal speech. Laboratory Laboratory Tests Test 02/14/18 05:20 White Blood Count 11.5 Red Blood Count 4.23 Hemoglobin 8.8 Hematocrit 29.3 Mean Corpuscular Volume 69.3 Mean Corpuscular Hemoglobin 20.9 Mean Corpuscular Hemoglobin Concent 30.2 Red Cell Distribution Width 22.4 Platelet Count 345 Mean Platelet Volume 7.7 Neutrophils (%) (Auto) 74.9 Lymphocytes (%) (Auto) 9.2 Monocytes (%) (Auto) 13.0 Eosinophils (%) (Auto) 2.0 Basophils (%) (Auto) 0.9 Neutrophils # (Auto) 8.6 Lymphocytes # (Auto) 1.1 Monocytes # (Auto) 1.5 Eosinophils # (Auto) 0.2 Basophils # (Auto) 0.1 CBC Comment DIFF FINAL Differential Comment Prothrombin Time 11.3 Prothromb Time International Ratio 1.1 Activated Partial Thromboplast Time 30.8 Blood Urea Nitrogen 34 Creatinine 2.43 Random Glucose 91 Calcium Level 8.6 Magnesium Level 2.6 Sodium Level 138 Potassium Level 3.4 Chloride Level 101 Carbon Dioxide Level 27.4 Anion Gap 10 Estimat Glomerular Filtration Rate 19 Total Creatine Kinase 45 Troponin I LESS THAN 0.02 B-Type Natriuretic Peptide 369 Result Diagram: 02/14/18 0520 02/14/18 05 Imaging Last Impressions Chest X-Ray 02/14/18 0456 Signed Impressions: Service Date/Time: Wednesday, February 14, 2018 04:59 - CONCLUSION: Worsening right base infiltrate and effusion MD Rocky Gutierrez VTE Risk Assessment Rocky VTE Risk Assessment: Mod/High Risk (score >= 2) Caprini Risk Assessment Model Point Value = 1 Point Value = 2 Point Value = 3 Point Value = 5 Age 41-60 Minor surgery BMI > 25 kg/m2 Swollen legs Varicose veins or History of unexplained or recurrent spontaneous Oral contraceptives or hormone replacement Sepsis (< 1 month) Serious lung disease, including pneumonia (< 1 month) Abnormal pulmonary function Acute myocardial infarction Congestive heart failure (< 1 month) History of inflammatory bowel disease Medical patient at bed rest Age 61-74 Arthroscopic surgery Major open surgery (> 45 min) Laparoscopic surgery (> 45 min) Malignancy Confined to bed (> 72 hours) Immobilizing plaster cast Central venous access Age >= 75 History of VTE Family history of VTE Factor V Leiden Prothrombin [id number] Lupus anticoagulant Anticardiolipin antibodies Elevated serum homocysteine Heparin-induced thrombocytopenia Other congenital or acquired thrombophilia Stroke (< 1 month) Elective arthroplasty Hip, pelvis, or leg fracture Acute spinal cord injury (< 1 month) Prophylaxis Regimen Total Risk Factor Score Risk Level Prophylaxis Regimen 0-1 Low Early ambulation 2 Moderate Order ONE of the following: *Sequential Compression Device (SCD) *Heparin 5000 units SQ BID 3-4 Higher Order ONE of the following medications: *Heparin 5000 units SQ TID *Enoxaparin/Lovenox 40 mg SQ daily (WT < 150 kg, CrCl > 30 mL/min) *Enoxaparin/Lovenox 30 mg SQ daily (WT < 150 kg, CrCl > 10-29 mL/min) *Enoxaparin/Lovenox 30 mg SQ BID (WT < 150 kg, CrCl > 30 mL/min) AND/OR *Sequential Compression Device (SCD) 5 or more Highest Order ONE of the following medications: *Heparin 5000 units SQ TID (Preferred with Epidurals) *Enoxaparin/Lovenox 40 mg SQ daily (WT < 150 kg, CrCl > 30 mL/min) *Enoxaparin/Lovenox 30 mg SQ daily (WT < 150 kg, CrCl > 10-29 mL/min) *Enoxaparin/Lovenox 30 mg SQ BID (WT < 150 kg, CrCl > 30 mL/min) AND *Sequential Compression Device (SCD) Assessment and Plan Problem List: (1) Acute combined systolic and diastolic congestive heart failure ICD Codes: I50.41 - Acute combined systolic (congestive) and diastolic ( congestive) heart failure Status: Resolved Plan: CHF exacerbation Worsening LE edema - Pt is an 87 y/o female with systolic/diastolic CHF with EF less than 20% ( echo in 11/2017), paroxysmal atrial fibrillation, HTN, COPD, and CAD. - She presented to the ED at [facility] on 02/14/18 with complaints of worsening LE edema and pain. She reports that she has been compliant with her Lasix 40mg po BID and potassium 20mg po BID but for the last few weeks has noted some increasing pedal edema. Then yesterday she noted that she began having increasing swelling in bilateral LE to the knees and had increasing pain in bilateral feet and LE. - Pts labs at admission noted a slight worsening of her baseline CKD with creatinine 2.43/BUN 34 and GFR 19. Her BNP is 369. - CXR noted a worsening right base infiltrate and effusion. - She is chronically on 2L of supplemental O2 and denies any worsening SOB or cough. The patient has chronic 2 pillow orthopnea. She denies any PND. - Pt was give a dose of IV Lasix 40mg in the ED at 0500 this morning but has not urinated yet - Place Storey cath for accurate I&Os and urinary retention - Repeat BMP at 1300 today - Will continue with diuresis with IV Lasix 20mg BID and Albumin IV to be given prior to lasix but will need to await repeat BMP this afternoon before continuing diuresis as her renal function is worse than baseline. - I&Os - Daily weights - JOSIE hose/SCDs - Elevate legs - Ofirmev for pain as BP is low/normal Acute on chronic renal insufficiency - Labs at admission with worsening of her baseline CKD with creatinine 2.43/BUN 34 and GFR 19 - Await repeat labs this afternoon before continuing diuresis - Monitor labs daily A. fib, paroxysmal - Cont. Amiodarone 200mg po daily - Cont. Metoprolol 100mg po BID, may need to dose reduce or hold Metoprolol depending on what her BP does during diuresis - Telemetry HTN - BP is low normal, monitor during diuresis (2) Acute on chronic renal insufficiency ICD Codes: N28.9 - Disorder of kidney and ureter, unspecified; N18.9 - Chronic kidney disease, unspecified Status: Acute (3) Atrial fibrillation ICD Codes: I48.91 - Atrial fibrillation Status: Acute (4) Anemia ICD Codes: D64.9 - Anemia, unspecified Status: Acute (5) Hypertension ICD Codes: I10 - Hypertension Status: Acute (6) Hyperlipemia ICD Codes: E78.5 - Hyperlipemia Status: Acute Assessment and Plan Patient examined. Assessment and plan formulated with Lisa Chavez PA-C. I agree with the above. acute systolic chf. marcelino. severe pain in lower ext/feet due to swelling. repeat bmp pending. plan continued iv diuresis with albumen. pain control Physician Certification 2 Midnight Certification Type: Admission for Inpatient Services Order for Inpatient Services The services are ordered in accordance with Medicare regulations or non- Medicare payer requirements, as applicable. In the case of services not specified as inpatient-only, they are appropriately provided as inpatient services in accordance with the 2-midnight benchmark. Estimated LOS (days): 3 3 days is the estimated time the patient will need to remain in the hospital, assuming treatment plan goals are met and no additional complications. Post-Hospital Plan: Not yet determined Lisa Chavez February 14, 2018 09:27 Negrito Beal MD February 14, 2018 10:52
[2018-02-14 09:35] LABS: BACTERIA, URINE FEW /hpf; BILIRUBIN, URINE NEG (NEG); BLOOD, URINE TRACE (NEG); GLUCOSE,URINE NEG (NEG); HYALINE CAST, URINE 2 /lpf (RARE); KETONE, URINE NEG (NEG); MUCUS URINE FEW /lpf (OCC); NITRITE,URINE NEG (NEG); PH, URINE 5.5 (5.0-8.5); SQUAMOUS EPITHELIAL CELL URINE <1 /hpf (0-5); URINE COLOR LIGHT-YELLOW (YELLW/STRAW); URINE LEUKOCYTE ESTERASE LARGE (NEG)
--- NOTE | 2018-02-14 12:33 | EKG ---
Date Performed: 02/14/2018 Time Performed: 05:52:53 PTAGE: 87 years EKG: ATRIAL FIBRILLATION MARKED LEFT AXIS DEVIATION LEFT BUNDLE BRANCH BLOCK ABNORMAL ECG PREVIOUS TRACING : 12/07/2017 18.04 Since the previous tracing, no significant change noted DOCTOR: Ramesh Lazcano Interpretating Date/Time 02/14/2018 12:32:57
[2018-02-14 14:49] LABS: BICARBONATE 29.1 MEQ/L (21.0-32.0); CALCIUM 8.2 MG/DL (8.5-10.1); CREATININE 2.51 MG/DL (0.50-1.00)
[2018-02-14] MEDS: FUROSEMIDE 20 MG/2 ML VIAL IV PUSH SCH (18:11)
[2018-02-14] MEDS: ACETAMINOPHEN/HYDROcodone 325 MG/5 MG TAB PO PRN (18:13)
[2018-02-14] MEDS: ALBUMIN 25% INJ 100 ML IV SCH (20:19)
[2018-02-14] MEDS: SODIUM CHLORIDE 0.9% FLUSH 10 ML FLUSH IVF PRN (20:22)
[2018-02-15] VITALS (13 sets, daily range): BP systolic 100–126; BP diastolic 45–57; PULSE 72–119; RESP 18–20; TEMP 97.3–98.9; O2SAT 92–100
[2018-02-15] MEDS: METOPROLOL TARTRATE 100 MG TAB PO SCH (08:37)
[2018-02-15] MEDS: AMIODARONE 200 MG TAB PO SCH (09:12)
[2018-02-15] MEDS: SODIUM CHLORIDE 0.9% FLUSH 10 ML FLUSH IVF PRN (09:12)
[2018-02-15] MEDS: POTASSIUM CHLORIDE 20 MEQ CONTROLLED RELEASE TAB PO SCH ×2 (09:12→21:00)
[2018-02-15] MEDS: PANTOPRAZOLE SOD 40 MG DELAYED RELEASE TAB PO SCH (09:12)
[2018-02-15] MEDS: FUROSEMIDE 20 MG/2 ML VIAL IV PUSH SCH (09:13)
[2018-02-15] MEDS: ALBUMIN 25% INJ 100 ML IV SCH ×3 (09:37→23:37)
--- NOTE | 2018-02-15 09:40 | HHI.PR ---
Subjective Remarks Pt had increased SOB and some chest pain/tightness this morning. She is anxious Pt requiring more supplemental O2 upwards of 6L on partial nonrebreather HALICat was called Objective Vitals Vital Signs Date Time Temp Pulse Resp B/P (MAP) Pulse Ox O2 Delivery O2 Flow Rate FiO2 02/15/18 08:00 98.4 73 20 107/53 (71) 95 02/15/18 04:00 97.6 78 18 100/54 (69) 96 02/15/18 00:00 97.3 79 19 100/52 (68) 97 02/14/18 20:00 97.5 73 19 114/55 (74) 98 02/14/18 16:00 97.5 72 20 117/53 (74) 95 02/14/18 16:00 71 02/14/18 12:00 65 02/14/18 12:00 97.5 81 20 97/58 (71) 98 02/14/18 09:39 97.8 77 20 106/55 (72) 99 02/14/18 09:36 Result Diagram: 02/14/18 0520 02/14/18 1334 Other Results Laboratory Tests Test 02/14/18 05:20 02/14/18 08:50 02/14/18 13:34 White Blood Count 11.5 TH/MM3 Red Blood Count 4.23 MIL/MM3 Hemoglobin 8.8 GM/DL Hematocrit 29.3 % Mean Corpuscular Volume 69.3 FL Mean Corpuscular Hemoglobin 20.9 PG Mean Corpuscular Hemoglobin Concent 30.2 % Red Cell Distribution Width 22.4 % Platelet Count 345 TH/MM3 Mean Platelet Volume 7.7 FL Neutrophils (%) (Auto) 74.9 % Lymphocytes (%) (Auto) 9.2 % Monocytes (%) (Auto) 13.0 % Eosinophils (%) (Auto) 2.0 % Basophils (%) (Auto) 0.9 % Neutrophils # (Auto) 8.6 TH/MM3 Lymphocytes # (Auto) 1.1 TH/MM3 Monocytes # (Auto) 1.5 TH/MM3 Eosinophils # (Auto) 0.2 TH/MM3 Basophils # (Auto) 0.1 TH/MM3 CBC Comment DIFF FINAL Differential Comment Prothrombin Time 11.3 SEC Prothromb Time International Ratio 1.1 RATIO Activated Partial Thromboplast Time 30.8 SEC Blood Urea Nitrogen 34 MG/DL 33 MG/DL Creatinine 2.43 MG/DL 2.51 MG/DL Random Glucose 91 MG/DL 95 MG/DL Calcium Level 8.6 MG/DL 8.2 MG/DL Magnesium Level 2.6 MG/DL Sodium Level 138 MEQ/L 141 MEQ/L Potassium Level 3.4 MEQ/L 3.3 MEQ/L Chloride Level 101 MEQ/L 103 MEQ/L Carbon Dioxide Level 27.4 MEQ/L 29.1 MEQ/L Anion Gap 10 MEQ/L 9 MEQ/L Estimat Glomerular Filtration Rate 19 ML/MIN 18 ML/MIN Total Creatine Kinase 45 U/L Troponin I LESS THAN 0.02 NG/ML B-Type Natriuretic Peptide 369 PG/ML Urine Color LIGHT-YELLOW Urine Turbidity CLEAR Urine pH 5.5 Urine Specific Marilla 1.008 Urine Protein NEG mg/dL Urine Glucose (UA) NEG mg/dL Urine Ketones NEG mg/dL Urine Occult Blood TRACE Urine Nitrite NEG Urine Bilirubin NEG Urine Urobilinogen LESS THAN 2.0 MG/DL Urine Leukocyte Esterase LARGE Urine RBC 2 /hpf Urine WBC 43 /hpf Urine Squamous Epithelial Cells <1 /hpf Urine Bacteria FEW /hpf Urine Hyaline Casts 2 /lpf Urine Mucus FEW /lpf Microscopic Urinalysis Comment CULTURE INDICATED Imaging Last Impressions Chest X-Ray 02/14/18 0456 Signed Impressions: Service Date/Time: Wednesday, February 14, 2018 04:59 - CONCLUSION: Worsening right base infiltrate and effusion Zohaib Cuellar MD Objective Remarks General: Anxious, appears in distress Chest: decreased air movement throughout cardiac: tachy, irregular Abd: +BS, soft ND/NT Ext: Bilateral LE edema A/P Problem List: (1) Acute combined systolic and diastolic congestive heart failure ICD Codes: I50.41 - Acute combined systolic (congestive) and diastolic ( congestive) heart failure Status: Resolved Plan: CHF exacerbation Worsening LE edema - Pt is an 87 y/o female with systolic/diastolic CHF with EF less than 20% ( echo in 11/2017), paroxysmal atrial fibrillation, HTN, COPD, and CAD. - She presented to the ED at [facility] [place] on 02/14/18 with complaints of worsening LE edema and pain. She reports that she has been compliant with her Lasix 40mg po BID and potassium 20mg po BID but for the last few weeks has noted some increasing pedal edema. Then yesterday she noted that she began having increasing swelling in bilateral LE to the knees and had increasing pain in bilateral feet and LE. - Pts labs at admission noted a slight worsening of her baseline CKD with creatinine 2.43/BUN 34 and GFR 19. Her BNP is 369. - CXR noted a worsening right base infiltrate and effusion. - She is chronically on 2L of supplemental O2 and denies any worsening SOB or cough. The patient has chronic 2 pillow orthopnea. She denies any PND. - Pt was give a dose of IV Lasix 40mg in the ED at 0500 on the morning of admission but was not urinating and required Storey placement on 02/14 for accurate I&Os and urinary retention - Diuresis was continued with IV Lasix 20mg BID and Albumin IV to be given prior to Lasix - Await repeat BMP for today - Get STAT repeat CXR - ABG stat - Start duonebs now and Q4H - Give SoluMedrol 125mg now - Given Ativan 0.5mg IV now - will re-evaluate to see if she needs transfer to the unit. - Pt also with hx of COPD and there may be a component of COPD exacerbation as well as chf - I&Os - Daily weights - JOSIE hose/SCDs - Elevate legs (2) Acute on chronic renal insufficiency ICD Codes: N28.9 - Disorder of kidney and ureter, unspecified; N18.9 - Chronic kidney disease, unspecified Status: Acute Plan: - Labs at admission with worsening of her baseline CKD with creatinine 2.43/BUN 34 and GFR 19 - Repeat Cr of 2.51 on 02/14 - Await repeat labs this morning - Monitor labs daily (3) Atrial fibrillation ICD Codes: I48.91 - Atrial fibrillation Status: Chronic Plan: - Cont. Amiodarone 200mg po daily - Cont. Metoprolol 100mg po BID, has not been given duw to low BP. Will stop today - Telemetry (4) Anemia ICD Codes: D64.9 - Anemia, unspecified Status: Chronic Plan: - Pt with hx of GIB after she was disimpacted in the ED on 11/02/17 - Pt previously underwent evaluation with EGD/Colonoscopy (12/09/17) with Dr. 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 - GI recommended caution & minimal dosing with anticoagulants. - Xarelto has been on hold since her previous admission in December 2017. - No active bleeding currently - Monitor H/H closely (5) Hypertension ICD Codes: I10 - Hypertension Status: Acute Plan: - BP is low normal, monitor during diuresis (6) Hyperlipemia ICD Codes: E78.5 - Hyperlipemia Status: Acute Assessment and Plan Patient examined. Assessment and plan formulated with Lisa Chavez PA-C. I agree with the above. Pt developed acute dyspnea. Pt became bradycardia and then VT. ACLS protocol initiated. Pt intubated by Charge Master Specialist and transferred to the ICU. Lisa Chavez February 15, 2018 09:40 Braden Whipple DO February 16, 2018 22:21
[2018-02-15] MEDS: ACETAMINOPHEN/HYDROcodone 325 MG/5 MG TAB PO PRN (11:29)
[2018-02-15 13:00] LABS: AUTOMATED NEUTROPHIL # 7.7 TH/MM3 (1.8-7.7); BASOPHIL # 0.1 TH/MM3 (0-0.2); BASOPHIL % 1.1 % (0.0-2.0); EOSINOPHIL # 0.2 TH/MM3 (0-0.4); EOSINOPHIL % 1.8 % (0.0-4.0); HEMATOCRIT 23.6 % (35.0-46.0); HEMOGLOBIN 7.1 GM/DL (11.6-15.3); LYMPH % 8.3 % (9.0-44.0); LYMPHOCYTE # 0.8 TH/MM3 (1.0-4.8); MEAN CELL VOLUME 69.8 FL (80.0-100.0); MEAN CORPUSCULAR HEMOGLOBIN 21.1 PG (27.0-34.0); MEAN CORPUSCULAR HGB CONC 30.3 % (32.0-36.0); MEAN PLATELET VOLUME 7.6 FL (7.0-11.0); MONO % 9.2 % (0.0-8.0); MONOCYTE # 0.9 TH/MM3 (0-0.9); NEUT % 79.6 % (16.0-70.0); PLATELET COUNT 281 TH/MM3 (150-450); RED BLOOD COUNT 3.38 MIL/MM3 (4.00-5.30); RED CELL DISTRIBUTION WIDTH 22.2 % (11.6-17.2); WHITE BLOOD COUNT 9.7 TH/MM3 (4.0-11.0)
[2018-02-15] MEDS ORDERED: LORazepam 2 MG/ML VIAL IV PUSH ONE (13:00)
[2018-02-15] MEDS ORDERED: RESP: ALBUTEROL 2.5 MG/IPRATROPIUM 0.5 MG NEB (SCH) NEB ONE (13:00)
[2018-02-15] MEDS ORDERED: MIDAZOLAM HCL 5 MG/ML VIAL (1 ML) ONE (13:08)
[2018-02-15] MEDS ORDERED: methylPREDNISolone SOD SUCC 125 MG/2 ML VIAL IV PUSH ONE (13:15)
[2018-02-15] MEDS ORDERED: PROPOFOL 500 MG/50 ML INJ 50 ML ONE ×2 (13:26→14:46)
[2018-02-15 13:36] LABS: ALBUMIN 3.4 GM/DL (3.4-5.0); ALT (GPT) 13 U/L (10-53); AST (GOT) 17 U/L (15-37); BICARBONATE 27.9 MEQ/L (21.0-32.0); BLOOD UREA NITROGEN 34 MG/DL (7-18); CALCIUM 8.4 MG/DL (8.5-10.1); CHLORIDE 105 MEQ/L (98-107); CREATININE 2.42 MG/DL (0.50-1.00); GLOMERULAR FILTRATION RATE 19 ML/MIN (>89); GLUCOSE,RANDOM 159 MG/DL (74-106); SODIUM (NA) 141 MEQ/L (136-145)
[2018-02-15 13:39] LABS: ALKALINE PHOSPHATASE 88 U/L (45-117); TOTAL BILIRUBIN ADULT 0.5 MG/DL (0.2-1.0)
--- NOTE | 2018-02-15 13:58 | PD.CONS ---
[facility] Service Critical Care Medicine Consult Requested By Dr. Whipple Reason for Consult Cardiac arrest/ventricular tachycardia Severe bradycardia Acute hypoxemic and hypercarbic respiratory failure Shock multifactorial Acute exacerbation of systolic congestive heart failure Pulmonary edema Right-sided pleural effusion Acute on chronic kidney disease Atrial fibrillation with RVR Severe cardiomyopathy EF less than 20% Severe MR Primary Care Physician Tano Acosta M.D. History of Present Illness Ms. Veloz is a 87 y/o female with systolic and diastolic CHF with EF 20% ( echo in 11/2017), paroxysmal atrial fibrillation, HTN, COPD on 2L Oxygen at home , and CAD. She was admitted to [facility] hospitalist on 02/14/18 for CHF exacerbation and acute worsening of chronic kidney disease. CXR noted a worsening right base infiltrate and effusion. Her WBC count was 11.5 at admission. Last echo on 12/09/17 showed Estimated ejection fraction less than 20%. Severe mitral valve regurgitation. Patient apparently received 40 mg of IV Lasix in the ED and was placed on 20 mg IV every 12 hours with potassium replacement. Today patient complained about acute worsening of shortness of breath and she suddenly became severely bradycardic. ACLS protocol was initiated patient was given 1 mg epinephrine IV push. Subsequently developed ventricular tachycardia requiring DC cardioversion 1. I arrived at the bedside and patient had a palpable radial pulse. Patient continued to show agonal breathing and with myself present at the bedside, respiratory therapist intubated on first attempt. Patient was emergently moved to the ICU where I reevaluated her. Chest x-ray showed bilateral pulmonary edema and right-sided effusion. Bedside ultrasound shows moderate to large right-sided effusion. I will plan on draining the effusion by the pigtail catheter. Patient placed on Bumex infusion. Also IV Solu-Medrol and scheduled breathing treatments. Cefepime for empiric coverage Review of Systems ROS Limitations: Intubated, Altered Mental Status Past Family Social History Allergies: Coded Allergies: aspirin (Unverified Allergy, Severe, 02/14/18) codeine (Unverified Allergy, Severe, 02/14/18) morphine (Unverified Allergy, Severe, 02/14/18) Past Medical History Chronic kidney disease Hypertension Chronic systolic heart failure ejection fraction less than 20% Severe MR Paroxysmal A. fib Diastolic CHF CAD Hx of GIB Hyperlipidemia COPD on home oxygen Past Surgical History Cholecystectomy Appendectomy Reported Medications Amiodarone (Amiodarone HCl) 200 Mg Tab 200 Mg PO DAILY Protonix (Pantoprazole Sodium) 40 Mg Tab 40 Mg PO DAILY Oxygen Lasix (Furosemide) 40 Mg Tab 40 Mg PO BID Potassium Chloride ER (Potassium Chloride) 20 Meq Tab 20 Meq PO BID Metoprolol Tartrate 100 Mg Tab 100 Mg PO BID Active Ordered Medications Reviewed Family History Unable to obtain Social History Stopped smoking 2001. 2 ppd x 50 years Occasional etoh Physical Exam Vital Signs Vital Signs Date Time Temp Pulse Resp B/P (MAP) Pulse Ox O2 Delivery O2 Flow Rate FiO2 02/15/18 12:34 Partial Non-Rebreather 15.00 02/15/18 12:00 Simple Mask 6.00 02/15/18 12:00 98.2 87 20 123/57 (79) 92 02/15/18 11:44 93 Simple Mask 6.00 02/15/18 08:00 Nasal Cannula 2.00 02/15/18 08:00 98.4 73 20 107/53 (71) 95 02/15/18 04:00 97.6 78 18 100/54 (69) 96 02/15/18 00:00 97.3 79 19 100/52 (68) 97 02/14/18 20:00 97.5 73 19 114/55 (74) 98 02/14/18 16:00 97.5 72 20 117/53 (74) 95 02/14/18 16:00 71 Physical Exam GENERAL: Well-developed well-nourished elderly female in severe distress agonal breathing SKIN: Warm and dry. Skin poorly perfused HEAD: Normocephalic. EYES: No scleral icterus. No injection or drainage. NECK: Supple, trachea midline. No JVD by limited exam CARDIOVASCULAR: Atrial fibrillation with RVR, no murmurs gallops, or rubs. RESPIRATORY: Breath sounds equal bilaterally, but diminished at the bases. Agonal breathing using accessory muscles, expiratory wheezes heard bilaterally GASTROINTESTINAL: Abdomen soft, non-tender, nondistended. MUSCULOSKELETAL: bilateral lower extremity pitting edema. NEURO: Eyes are spontaneously open. Not responding to verbal stimuli or painful stimuli. Impending respiratory arrest limits neuro exam Laboratory Laboratory Tests Test 02/15/18 11:55 02/15/18 12:55 White Blood Count 9.7 Red Blood Count 3.38 Hemoglobin 7.1 Hematocrit 23.6 Mean Corpuscular Volume 69.8 Mean Corpuscular Hemoglobin 21.1 Mean Corpuscular Hemoglobin Concent 30.3 Red Cell Distribution Width 22.2 Platelet Count 281 Mean Platelet Volume 7.6 Neutrophils (%) (Auto) 79.6 Lymphocytes (%) (Auto) 8.3 Monocytes (%) (Auto) 9.2 Eosinophils (%) (Auto) 1.8 Basophils (%) (Auto) 1.1 Neutrophils # (Auto) 7.7 Lymphocytes # (Auto) 0.8 Monocytes # (Auto) 0.9 Eosinophils # (Auto) 0.2 Basophils # (Auto) 0.1 CBC Comment DIFF FINAL Differential Comment Blood Urea Nitrogen 34 Creatinine 2.42 Random Glucose 159 Total Protein 7.0 Albumin 3.4 Calcium Level 8.4 Alkaline Phosphatase 88 Aspartate Amino Transf (AST/SGOT) 17 Alanine Aminotransferase (ALT/SGPT) 13 Total Bilirubin 0.5 Sodium Level 141 Potassium Level 3.2 Chloride Level 105 Carbon Dioxide Level 27.9 Anion Gap 8 Estimat Glomerular Filtration Rate 19 Date/Time Source Procedure Growth Status 02/14/18 08:50 Urine Clean Catch Urine Culture - Preliminary NO GROWTH IN 24 HOURS. Resulted Result Diagram: 02/15/18 1155 02/15/18 1255 Imaging Chest x-ray shows pulmonary edema and right pleural effusion Septic Shock Reassessment Septic shock perfusion: reassessment completed Assessment and Plan Assessment and Plan ASSESSMENT: Cardiac arrest/ventricular tachycardia Severe bradycardia Acute hypoxemic and hypercarbic respiratory failure Shock multifactorial Acute exacerbation of systolic congestive heart failure Pulmonary edema Right-sided pleural effusion Acute on chronic kidney disease Atrial fibrillation with RVR Ischemic cardiomyopathy EF <20%, Severe MR Coronary artery disease COPD on home oxygen Hypertension PLAN: NEURO: -Postintubation moving all extremities purposefully -Propofol and Versed for sedation and vent synchrony -Daily sedation vacation once hemodynamically stable starting in 24 hours RESP: -Emergently intubated and placed on mechanical ventilation -Acute respiratory decompensation secondary to CHF exacerbation and right pleural effusion -DuoNeb every 4 hours scheduled and as needed -IV Solu-Medrol 60 every 12 -Cefepime for empiric antibiotics, check sputum culture CV: -Currently on Levophed at 12 mcg/min -Add dobutamine for inotropic support start Flowtrack monitoring -Chest x-ray shows pulmonary edema -Start Bumex infusion once the blood pressure improves along with potassium replacement and IV albumin -Overall prognosis guarded secondary to EF less than 20%, and severe mitral regurgitation -Continue PO amiodarone. Change to IV amiodarone as needed -Use digoxin if needed for rate control -Anticoagulation was discontinued previously due to GI bleed GI: -N.p.o., Protonix -Start tube feeds in 24 hours : -Monitor renal function closely. Storey catheter. -Bumex gtt at 0.5 mg/h with potassium replacement -Nephrology consult if worsening renal function ID: -Cefepime 1 g every 12 -Check sputum culture blood culture and urine culture HEME: -Monitor CBC, CMP -Anticoagulation was discontinued on this patient due to previous GI bleed ENDO: -Electrolyte replacement per protocol -Sliding scale insulin if needed PROPH: -Bilateral lower extremity SCDs. Heparin for DVT prophylaxis. Protonix for GI prophylaxis LINES: -Central line and arterial line placed in ICU 02/15 by CC time 77 min excluding procedures Code Status Full Discussed Condition With Harmony Bedoya MD February 15, 2018 13:58
--- NOTE | 2018-02-15 14:08 | PD.PROCEDR ---
Central Line Procedure REASON FOR PROCEDURE Central venous access PROCEDURE PERFORMED Central line placement: Left IJ CVL CONSENT Informed consent for procedure was obtained. The risks and benefits of the procedure were discussed to include but limited to bleeding, clot formation, infection, and even . ANESTHESIA Local injection of 1% Lidocaine DESCRIPTION OF THE PROCEDURE The patient was placed in supine, mild Trendelenburg position. The area was exposed and cleansed with ChloraPrep, times two. Large sterile drape was used to cover the patient, with the site exposed, under sterile conditions including cap, face mask, sterile gown, and sterile gloves. On single attempt, the introducer needle was inserted with negative pressure in syringe and venous flash was obtained. The guide wire was then advanced without any restriction and the needle was removed. The dilator was used without any complications. Using Seldinger technique the antibiotic coated triple lumen catheter was advanced over the guide wire to a depth of 20 centimeters. The guide wire was removed. All ports were aspirated with dark venous blood return and flushed easily with sterile saline. All ports were capped. Antibiotic disc was placed around central line at puncture site. The central line was secured to the skin with two interrupted 2.0 silk sutures. The area was bandaged with sterile see- through central line bandage. RADIOLOGICAL DATA Ultrasound guidance was used to locate left internal jugular vein. Doppler/ color flow was used to confirm venous flow. COMPLICATIONS: No apparent complications ESTIMATED BLOOD LOSS: Less than 1 cc. Juan J Black MD February 15, 2018 14:08
[2018-02-15] MEDS ORDERED: SODIUM CHLORIDE 0.9% FLUSH 10 ML FLUSH IV FLUSH PRN (14:15)
[2018-02-15] MEDS ORDERED: POTASSIUM CHLORIDE 25 MEQ EFFERVESCENT TAB PO ONE (14:15)
[2018-02-15] MEDS ORDERED: ROCURONIUM INJ 50 MG/5 ML VIAL IV ONE (14:30)
--- NOTE | 2018-02-15 14:41 | RADRPT ---
EXAM DATE/TIME: 02/15/2018 13:28 [facility] COMPARISON: CHEST SINGLE AP, February 14, 2018, 4:59. INDICATIONS : Post left intrajugular line placement. MEDICAL HISTORY : Myocardial infarction. Congestive heart failure. Hypercholesterolemia. hypertension, GERD SURGICAL HISTORY : Appendectomy. Cholecystectomy. ENCOUNTER: Initial ACUITY: 2 days PAIN SCORE: Non-responsive. LOCATION: Bilateral chest FINDINGS: There is a left internal jugular central line in place with the tip overlying the SVC. No pneumothora x is seen. ET tube is in good position. The heart size is enlarged. Lungs exhibit diffuse mixed inter stitial and alveolar consolidation. There is silhouetting of the right hemidiaphragm. CONCLUSION: 1. Left IJ line in good position. 2. Diffuse pulmonary consolidation likely related to CHF. 3. Cardiomegaly. 4. Suspect at least mild right pleural effusion. Zohaib Del Toro MD on February 15, 2018 at 14:36 Board Certified Radiologist. This report was verified electronically.
--- NOTE | 2018-02-15 14:51 | PD.PROCEDR ---
Procedure Note Procedure Procedure: Right pigtail chest tube placement, ultrasound-guided Indication: Large right effusion, hypoxemic and hypercarbic respiratory failure Details of procedure: The patient was laid in left lateral decubitus position. The right posterior lateral chest wall was cleaned with ChloraPrep twice. Regional sterile drapes were applied and I used full sterile precautions including Cap mask sterile gown and gloves. 1% lidocaine with epinephrine was used for local anesthesia and injected into the subcutaneous and deep muscle tissues, after insertion location was identified with ultrasound. A 0.25 cm skin incision was made with a scalpel. 18G access needle was introduced into the pleural space and slight yellow tinged fluid was aspirated. A guidewire was placed and the needle was removed. After serial dilation, a 8F Romanian pigtail catheter was introduced using Seldinger technique over the guidewire and internal stiffener of the pigtail catheter was removed along with guidewire. The pigtail catheter was connected to the pleurovac at -20 suction. Initial output was 110 0mL of slightly yellow tinged pleural fluid. The pigtail catheter was secured with 1 silk suture and Stay fix dressing Estimated blood loss: <1 cc CXR pending Complications: None Harmony Penny MD February 15, 2018 14:51
[2018-02-15] MEDS ORDERED: DOBUTamine INJ 1,000 MG in DEXTROSE 5% IN WATER INJ 170 ML IV PRN ×2 (15:00)
[2018-02-15] MEDS ORDERED: MIDAZOLAM 100 MG/100 ML INJ 100 ML IV PRN (15:00)
[2018-02-15] MEDS: CEFEPIME INJ 1,000 MG in SODIUM CHLORIDE 0.9% INJ 100 ML IV SCH (15:55)
[2018-02-15] MEDS: methylPREDNISolone SOD SUCC 125 MG/2 ML VIAL IV PUSH SCH ×2 (15:57→21:00)
[2018-02-15] MEDS: BUMETANIDE INJ 100 ML IV SCH (15:58)
[2018-02-15] MEDS: RESP: ALBUTEROL 2.5 MG/IPRATROPIUM 0.5 MG NEB (SCH) NEB ×2 (16:00→21:26)
--- NOTE | 2018-02-15 16:28 | RADRPT ---
EXAM DATE/TIME: 02/15/2018 15:25 [facility] COMPARISON: CHEST SINGLE AP, November 02, 2017, 11:21. CHEST SINGLE AP, February 15, 2018, 13:28. INDICATIONS : Post left intrajugular line placement. MEDICAL HISTORY : Myocardial infarction. Congestive heart failure. Hypercholesterolemia. SURGICAL HISTORY : Appendectomy. Cholecystectomy. ENCOUNTER: Subsequent ACUITY: 2 days PAIN SCORE: Non-responsive. LOCATION: Bilateral chest FINDINGS: A single view of the chest demonstrates improving aeration in both lung bases. Heart size is prominen t with some interstitial prominence characteristic of some degree of vascular congestion. This too sh ows some interval improvement. [place] loop thoracostomy tube is seen above the right hemidiaphragm. Lif e-support tubes are stable in position including a left IJ central venous catheter and endotracheal t ube CONCLUSION: 1. Improving aeration in the lung bases, particularly on the right. 2. Cardiomegaly with interstitial prominence characteristic of vascular congestion or failure. This d oes show interval improvement, however. 3. Stable position of life support tubes. Anibal Bernal MD on February 15, 2018 at 16:23 Board Certified Radiologist. This report was verified electronically.
[2018-02-15] MEDS: INSULIN ASPART SUPPLEMENTAL SCALE SQ SCH ×2 (17:03→21:01)
[2018-02-15] MEDS ORDERED: DIGOXIN 0.5 MG/2 ML VIAL IV PUSH ONE (17:45)
[2018-02-15 17:51] LABS: BACTERIA, URINE RARE /hpf; BILIRUBIN, URINE NEG (NEG); BLOOD, URINE MOD (NEG); GLUCOSE,URINE 150 mg/dL (NEG); KETONE, URINE NEG (NEG); MUCUS URINE FEW /lpf (OCC); NITRITE,URINE NEG (NEG); PH, URINE 8.5 (5.0-8.5); URINE COLOR LIGHT-YELLOW (YELLW/STRAW); URINE LEUKOCYTE ESTERASE NEG (NEG)
[2018-02-15] MEDS ORDERED: TERBUTALINE INJ 1 MG/ML AMP SQ PRN (20:00)
[2018-02-15] MEDS ORDERED: NOREPINEPHRINE-DEXTROSE DRIP 250 ML IV PRN (20:00)
[2018-02-15] MEDS: PROPOFOL 1000 MG/100 ML INJ 100 ML IV PRN ×2 (20:17→23:37)
[2018-02-15] MEDS: CHLORHEXIDINE 0.12% (ORAL KIT) 15 ML CUP MT SCH (21:00)
[2018-02-15] MEDS: ACETAMINOPHEN 325 MG TAB PO PRN (23:37)
[2018-02-16] VITALS (21 sets, daily range): BP systolic 112–154; BP diastolic 41–66; PULSE 68–142; RESP 19–21; TEMP 98.1–100; O2SAT 98–100
[2018-02-16] MEDS: RESP: ALBUTEROL 2.5 MG/IPRATROPIUM 0.5 MG NEB (SCH) NEB ×6 (00:06→20:46)
[2018-02-16] MEDS: CEFEPIME INJ 1,000 MG in SODIUM CHLORIDE 0.9% INJ 100 ML IV SCH ×2 (03:04→14:25)
[2018-02-16] MEDS: PROPOFOL 1000 MG/100 ML INJ 100 ML IV PRN ×6 (03:16→23:02)
[2018-02-16 03:40] LABS: AUTOMATED NEUTROPHIL # 10.4 TH/MM3 (1.8-7.7); BASOPHIL % 0.1 % (0.0-2.0); HEMATOCRIT 23.2 % (35.0-46.0); HEMOGLOBIN 7.1 GM/DL (11.6-15.3); LYMPH % 2.5 % (9.0-44.0); LYMPHOCYTE # 0.3 TH/MM3 (1.0-4.8); MEAN CELL VOLUME 68.3 FL (80.0-100.0); MEAN CORPUSCULAR HGB CONC 30.7 % (32.0-36.0); MEAN PLATELET VOLUME 7.6 FL (7.0-11.0); MONO % 1.5 % (0.0-8.0); MONOCYTE # 0.2 TH/MM3 (0-0.9); NEUT % 95.9 % (16.0-70.0); PLATELET COUNT 266 TH/MM3 (150-450); RED CELL DISTRIBUTION WIDTH 22.8 % (11.6-17.2); WHITE BLOOD COUNT 10.9 TH/MM3 (4.0-11.0)
[2018-02-16 04:01] LABS: BICARBONATE 26.6 MEQ/L (21.0-32.0); CALCIUM 8.3 MG/DL (8.5-10.1); CREATININE 2.32 MG/DL (0.50-1.00); MAGNESIUM 2.3 MG/DL (1.5-2.5)
[2018-02-16] MEDS ORDERED: POTASSIUM CHLORIDE INJ 30 MEQ in SODIUM CHLORIDE 0.9% INJ 100 ML IV-CENTRAL ONE (05:00)
[2018-02-16] MEDS: INSULIN ASPART SUPPLEMENTAL SCALE SQ SCH ×4 (08:00→20:14)
[2018-02-16] MEDS: CHLORHEXIDINE 0.12% (ORAL KIT) 15 ML CUP MT SCH ×2 (08:02→20:13)
[2018-02-16] MEDS: methylPREDNISolone SOD SUCC 125 MG/2 ML VIAL IV PUSH SCH ×2 (08:07→20:13)
[2018-02-16] MEDS: ALBUMIN 25% INJ 100 ML IV SCH ×2 (08:07→16:40)
[2018-02-16] MEDS: SODIUM CHLORIDE 0.9% FLUSH 10 ML FLUSH IV FLUSH SCH (08:07)
[2018-02-16] MEDS: AMIODARONE 200 MG TAB PO SCH (08:08)
[2018-02-16] MEDS: PANTOPRAZOLE SOD 40 MG DELAYED RELEASE TAB PO SCH (08:08)
[2018-02-16] MEDS: POTASSIUM CHLORIDE 20 MEQ CONTROLLED RELEASE TAB PO SCH ×2 (08:08→20:14)
[2018-02-16] MEDS: POTASSIUM CHLORIDE 20 MEQ PWD PACKET OG-TUBE SCH ×2 (09:38→20:13)
[2018-02-16] MEDS ORDERED: SODIUM CHLOR 0.9% 250 ML INJ 250 ML IV ONE (13:00)
[2018-02-16] MEDS: BUMETANIDE INJ 100 ML IV SCH ×2 (14:04→23:01)
--- NOTE | 2018-02-16 14:13 | HHI.CCPN ---
Subjective Remarks/Hospital Course 02/15: Ms. 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 She was admitted to [facility] hospitalist on 02/14/18 for CHF exacerbation and acute worsening of chronic kidney disease. CXR noted a worsening right base infiltrate and effusion. Her WBC count was 11.5 at admission. Last echo on 12/09/17 showed Estimated ejection fraction less than 20%. Severe mitral valve regurgitation. Patient apparently received 40 mg of IV Lasix in the ED and was placed on 20 mg IV every 12 hours with potassium replacement. Today patient complained about acute worsening of shortness of breath and she suddenly became severely bradycardic. ACLS protocol was initiated patient was given 1 mg epinephrine IV push. Subsequently developed ventricular tachycardia requiring DC cardioversion 1. I arrived at the bedside and patient had a palpable radial pulse. Patient continued to show agonal breathing and with myself present at the bedside, respiratory therapist intubated on first attempt. Patient was emergently moved to the ICU where I reevaluated her. Chest x-ray showed bilateral pulmonary edema and right-sided effusion. Bedside ultrasound shows moderate to large right-sided effusion. I will plan on draining the effusion by the pigtail catheter. Patient placed on Bumex infusion. Also IV Solu-Medrol and scheduled breathing treatments. Cefepime for empiric coverage 02/16: Remains sedated, orally intubated on mechanical ventilation. On Bumex and dobutamine drips. Objective Vital Signs Date Time Temp Pulse Resp B/P (MAP) Pulse Ox O2 Delivery O2 Flow Rate FiO2 02/16/18 12:00 100 45 02/16/18 06:00 68 02/16/18 04:00 98.1 20 134/61 (85) 134/43 (73) 02/15/18 12:34 Partial Non-Rebreather 15.00 Intake and Output 02/16/18 02/16/18 02/17/18 08:00 16:00 00:00 Intake Total 300 ml Output Total 2225 ml Balance -1925 ml Result Diagram: 02/16/18 0315 02/16/18 0315 Other Results Microbiology Date/Time Source Procedure Growth Status 02/14/18 08:50 Urine Clean Catch Urine Culture - Final NO GROWTH IN 48 HOURS. Complete Laboratory Tests Test 02/15/18 14:08 02/15/18 17:20 Blood Gas Puncture Site ART LINE ART LINE Blood Gas Patient Temperature 98.6 98.6 Blood Gas HCO3 24 mmol/L (22-26) 22 mmol/L (22-26) Blood Gas Base Excess -2.4 mmol/L (-2-2) -1.6 mmol/L (-2-2) Blood Gas Oxygen Saturation 97 % (90-100) 96 % (90-100) Arterial Blood pH 7.27 (7.380-7.420) 7.41 (7.380-7.420) Arterial Blood Partial Pressure CO2 53 mmHg (38-42) 36 mmHg (38-42) Arterial Blood Partial Pressure O2 294 mmHg (61-120) 131 mmHg (61-120) Arterial Blood Oxygen Content 10.5 Vol % (12.0-20.0) 10.0 Vol % (12.0-20.0) Arterial Blood Carboxyhemoglobin 1.6 % (0-4) 1.7 % (0-4) Arterial Blood Methemoglobin 1.6 % (0-2) 1.7 % (0-2) Blood Gas Hemoglobin 7.2 G/DL (12.0-16.0) 7.2 G/DL (12.0-16.0) Oxygen Delivery Device VENTILATOR VENTILATOR Blood Gas Ventilator Setting PRVC/AC 550/18/5PEEP PRVC/AC600/20/8PEEP Blood Gas Inspired Oxygen 100 % 60 % Imaging Last Impressions Chest X-Ray 02/15/18 0000 Signed Impressions: Service Date/Time: Thursday, February 15, 2018 15:25 - CONCLUSION: 1. Improving aeration in the lung bases, particularly on the right. 2. Cardiomegaly with interstitial prominence characteristic of vascular congestion or failure. This does show interval improvement, however. 3. Stable position of life support tubes. Anibal Bernal MD Objective Remarks HEENT/ Neuro: Sedated, orally intubated, Pallor present, no icterus, tongue/ mucosa dry Neck: No JVD Chest/Pulm: on mech vent, good air entry bilaterally, no wheezing or crackles. Scattered rhonchi. Right-sided pigtail catheter in place CVS: S1-S2 regular, no murmur GI/abdomen: soft, nontender, bowel sounds sluggish Extremities: warm bilaterally, bilateral edema A/P Assessment and Plan ASSESSMENT: Cardiac arrest/ventricular tachycardia Severe bradycardia Acute hypoxemic and hypercarbic respiratory failure Shock multifactorial Acute exacerbation of systolic congestive heart failure Pulmonary edema Right-sided pleural effusion Acute on chronic kidney disease Atrial fibrillation with RVR anemia Ischemic cardiomyopathy EF <20%, Severe MR Coronary artery disease COPD on home oxygen Hypertension PLAN: NEURO: -Propofol and Versed for sedation and vent synchrony -Daily sedation vacation once hemodynamically stable starting in 24 hours RESP: -Acute respiratory decompensation secondary to CHF exacerbation and right pleural effusion -Continue mechanical ventilation, vent bundle. -Right pigtail catheter in place draining 500 cc overnight. Being diuresed -DuoNeb every 4 hours scheduled and as needed -IV Solu-Medrol 60 every 12 -Cefepime for empiric antibiotics, check sputum culture CV: -Off levophed -Dobutamine for inotropic support, Flowtrac monitoring -Chest x-ray shows pulmonary edema -On Bumex infusion along with potassium replacement and IV albumin -Overall prognosis guarded secondary to EF less than 20%, and severe mitral regurgitation -Continue PO amiodarone. Change to IV amiodarone as needed -Use digoxin if needed for rate control -Anticoagulation was discontinued previously due to GI bleed GI: -Protonix -Start tube feeds with glucerna and advance to goal as tolerated. : -Monitor renal function closely. Storey catheter. -Bumex gtt at 0.5 mg/h with potassium replacement -Nephrology consult if worsening renal function ID: -Cefepime 1 g every 12 -Check sputum culture blood culture and urine culture HEME: -Monitor CBC, CMP -Anticoagulation was discontinued on this patient due to previous GI bleed ENDO: -Electrolyte replacement per protocol -Sliding scale insulin if needed PROPH: -Bilateral lower extremity SCDs. Heparin for DVT prophylaxis. Protonix for GI prophylaxis LINES: -Central line and arterial line placed in ICU 02/15 by Discussed current clinical status and plan of care with patient's family at bedside. Explained that patient is critical. Discussed possibility of needing tracheostomy and PEG tube this patient cannot be extubated in the next 10 days. discussed CODE STATUS. Family is deciding regarding changing CODE STATUS at this time. They are interested in discussions with palliative care as patient has not been doing well with progressive decline over the last 6 months with severe dyspnea with the least exertion. They do not feel that patient would want reintubation if she is able to get extubated. They also do not feel that patient would want a tracheostomy and PEG tube if she is not able to come off mechanical ventilation. CC time 40 min excluding procedures Beni Infante MD February 16, 2018 14:13
--- NOTE | 2018-02-16 17:49 | PD.CONS ---
Consult Service Palliative Care Consult Requested By Dr. Infante Primary Care Physician Tano Acosta M.D. Reason for Consultation a. To assist with evaluation and management of symptoms including: Dyspnea, edema, pain b. To assist medical decision maker(s) with: better understanding of current medical conditions; weighing benefits/burdens of medical treatment options; making medical treatment decisions. HPI History of Present Illness This is an 87-year-old female brought to the emergency department by [facility] for evaluation of dyspnea, lower extremity pain and swelling. She has known history of congestive heart failure, systolic with ejection fraction of less than 20% with severe mitral and tricuspid regurgitation. Per her last echocardiogram in November 2017, pulmonary artery pressures were 44 mmHg. She was experiencing pain in her legs due to the amount of swelling and began to have difficulty bearing weight. She had been taking Lasix 40 mg twice daily but due to her significant edema took both doses Thursday morning. Although she does have chronic atrial fibrillation, she is not on anticoagulation due to a GI bleed which occurred in November 2017. Her ED course was uncomplicated with laboratory studies showing WBC 11.5, hemoglobin 8.8, hematocrit 29.3, platelets 345, sodium 138, potassium 3.4, BUN 34, creatinine 2.43, magnesium 2.6, troponin less than 0.02, B natruretic peptide 369. Chest x-ray showed cardiomegaly with right pleural effusion. On evaluation, this is an elderly well-nourished female, intubated, sedated, in no acute distress. She withdraws all 4 extremities with minimal stimuli. Right pigtail catheter is draining serous fluid to Pleur-evac, which is full. She is receiving dobutamine for inotropic support and on flow track monitoring. She remains on a Bumex drip for diuresis. Current laboratory studies showed WBCs 10.9, hemoglobin 7.1, hematocrit 23.2, platelets 266, Sodium 143, potassium 3.3, BUN 32, creatinine 2.32. There is no family at bedside at this time. Function/Cognitive Trajectory She has not been able to do her prior level of functioning per the family. Her quality of life has been compromised by progressive shortness of breath, persistent edema and weakness. She herself has stated that this is an unacceptable quality of life for her. She has had difficulty with her ADLs and symptoms have made her daily tasks difficult. Her gait was becoming unsteady and her weakness progressive. This admission is her third hospitalization of this year. . Review of Systems ROS Limitations: Intubated (Patient is nonverbal and unable to provide their own ROS. 10 part ROS taken as best as possible from medical record and available family.) Constitutional: COMPLAINS OF: Weight gain Endocrine: DENIES: Abnorml menstrual pattern, Heat/cold intolerance, Polydipsia , Polyuria, Polyphagia Eyes: DENIES: Blurred vision, Diplopia, Eye inflammation, Eye pain, Vision loss , Photosensitivity, Double Vision, Blind spots Ears, nose, mouth, throat: DENIES: Tinnitus, Hearing loss, Vertigo, Nasal discharge, Oral lesions, Throat pain, Hoarseness, Ear Pain, Running Nose, Epistaxis, Sinus Pain, Toothache, Odynophagia Respiratory: COMPLAINS OF: Shortness of breath Cardiovascular: COMPLAINS OF: Dyspnea on Exertion, Lower Extremity Edema, Orthopnea Gastrointestinal: DENIES: Abdominal pain, Black stools, Bloody stools, Constipation, Diarrhea, Nausea, Vomiting, Difficulty Swallowing, Anorexia, Dyspepsia or heartburn, Excessive gas, Bloating, Vomiting blood Genitourinary: DENIES: Abnormal vaginal bleeding, Dysmenorrhea, Dyspareunia, Sexual dysfunction, Urinary frequency, Urinary incontinence, Urgency, Hematuria , Dysuria, Nocturia, Vaginal discharge, Hesitancy, Dribbling, Decreased stream Musculoskeletal: DENIES: Joint pain, Muscle aches, Stiffness, Joint Swelling, Back pain, Neck pain, Decreased range of motion Integumentary: DENIES: Abnormal pigmentation, Pruritus, Rash, Nail changes, Breast masses, Breast skin changes, Nipple discharge, Nodules, Tumors, Excessive dryness, Non-healing sores Hematologic/Lymphatics: DENIES: Bruising, Lymphadenopathy, Prolonged bleed w/ proced, History of transfusions Immunologic/Allergic: DENIES: Eczema, Urticaria Neurologic: DENIES: Abnormal gait, Headache, Localized weakness, Paresthesias, Seizures, Speech Problems, Tremor, Poor Balance, Change in smell or taste Psychiatric: DENIES: Anxiety, Confusion, Mood changes, Depression, Hallucinations, Agitation, Suicidal Ideation, Homicidal Ideation, Delusions, Anhedonia Past Family Social History Coded Allergies: aspirin (Unverified Allergy, Severe, 02/14/18) codeine (Unverified Allergy, Severe, 02/14/18) morphine (Unverified Allergy, Severe, 02/14/18) Past Medical History Coronary artery disease status post CT Permanent atrial fibrillation Chronic systolic heart failure EF less than 20% Hypertension Dyslipidemia Peripheral vascular disease Skin cancer Stress incontinence GI bleed . Past Surgical History Appendectomy Cholecystectomy Hysterectomy . Reported Medications Reported Meds & Active Scripts Active Amiodarone (Amiodarone HCl) 200 Mg Tab 200 Mg PO DAILY Protonix (Pantoprazole Sodium) 40 Mg Tab 40 Mg PO DAILY Oxygen tank (Oxygen) 1 Ea Tank Liter JOE.CANULA CONTINUOUS Oxygen Concentrator Portable Gaseous 2 L/min via Nasal Cannula Continuous For 1 month Oxygen (O2) Device Liter JOE.CANULA CONTINUOUS Oxygen Concentrator Portable Gaseous 2 L/min via Nasal Canula Continuous For 1 month Lasix (Furosemide) 40 Mg Tab 40 Mg PO BID Take 40 mg in the morning and 40 mg around 2 PM. Reported Potassium Chloride ER (Potassium Chloride) 20 Meq Tab 20 Meq PO BID Metoprolol Tartrate 100 Mg Tab 100 Mg PO BID Current Medications Medications (Trade) Dose Ordered Sig/Chon Route Start Time Stop Time Status Last Admin (NS Flush) 2 ml UNSCH PRN IVF 02/14/18 05:00 02/15/18 09:12 (Cordarone) 200 mg DAILY PO 02/14/18 09:00 02/16/18 08:08 (Lopressor) 100 mg BID PO 02/14/18 09:00 Future Hold (Protonix) 40 mg DAILY PO 02/14/18 09:00 02/16/18 08:08 (KCl) 20 meq BID PO 02/14/18 09:00 02/15/18 21:00 (Tylenol) 650 mg Q4H PRN PO 02/14/18 08:45 02/15/18 23:37 (Zofran Inj) 4 mg Q6H PRN IV 02/14/18 08:45 02/14/18 18:11 (Duoneb Neb) 1 ampule Q4HR NEB NEB 02/15/18 16:00 02/16/18 14:33 (NovoLOG SUPPLEMENTAL SCALE) 1 ACHS SLIDING SCALE SQ 02/15/18 17:00 02/16/18 16:41 Bumetanide 100 ml @ 2 mls/hr Q24H IV 02/15/18 14:04 02/15/18 15:58 (SoluMEDROL INJ) 60 mg Q12HR IV PUSH 02/15/18 14:15 02/16/18 08:07 (NS Flush) DAILY IV FLUSH 02/16/18 09:00 02/16/18 08:07 (NS Flush) UNSCH PRN IV FLUSH 02/15/18 14:15 Cefepime HCl 1000 mg/Sodium Chloride 100 ml @ 200 mls/hr Q12H IV 02/15/18 15:00 02/16/18 14:25 Dobutamine HCl 1000 mg/Dextrose 250 ml @ 3.31 mls/hr TITRATE PRN IV 02/15/18 15:00 02/15/18 19:00 Albumin Human 100 ml @ 60 mls/hr Q8H IV 02/15/18 17:00 02/16/18 16:40 Midazolam HCl 100 ml @ 2 mls/hr TITRATE PRN IV 02/15/18 15:00 (Peridex 0.12% Liq) 15 ml BID@08,20 MT 02/15/18 20:00 02/16/18 08:02 Propofol 100 ml @ 2.652 mls/ hr TITRATE PRN IV 02/15/18 16:45 02/16/18 13:59 (Brethine Inj) 1 mg UNSCH PRN SQ 02/15/18 20:00 (KCl Powder) 20 meq BID OG-TUBE 02/16/18 09:30 02/16/18 09:38 Sodium Chloride 250 ml @ 15 mls/hr ONCE ONCE IV 02/16/18 13:00 02/17/18 05:39 02/16/18 14:29 Family History Her mother in her late 60s after multiple CVAs. Her father also in his 60s of wound complications from a war wound received in world war 1. No other information is known. . Substance Use Tobacco: smoked 1-2 ppd of unfiltered [place] Strikes most of her life, quit about 10 years ago. Alcohol: She drinks scotch on a social basis. Prescription med abuse: No history. Illicits: No history. . Psychosocial History Patient was born in the [place] where she was educated, and raised her family. She moved from [place] to [facility] in 1986. 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 She had 2 daughters, one last year. Her remaining daughter Lisa, resides in [place] and is the social support for her father, who is 94. . Spiritual/Cultural Factors She is of the Yazdanism satish and would appreciate clergy visits. . Living Will: Never completed Health Care Surrogate: Never completed Durable Power of Tax Representative: Never completed Date completed: Not completed. . Health Care Surrogate(s): Not completed. . Documented care wishes: Not completed. . Today's verbally stated goals: Patient is intubated and unable to speak. . Family/friends goals: Per my discussion with her daughter, Lisa, family goals are for comfort. Patient has had difficulty managing her daily living tasks due to the edema, fatigue and shortness of breath. Patient had stated that she could not live like this any longer and family wishes to honor her goals. . Ethical and Legal Issues None noted. . Physical Exam Vital Signs Date Time Temp Pulse Resp B/P (MAP) Pulse Ox O2 Delivery O2 Flow Rate FiO2 02/16/18 16:32 100 45 02/16/18 16:27 98.7 89 21 130/42 100 02/16/18 15:44 98.5 95 21 130/41 100 02/16/18 14:25 45 02/16/18 14:00 75 02/16/18 12:00 100 45 02/16/18 12:00 74 02/16/18 12:00 98.8 74 19 154/66 (95) 98 112/45 (67) 02/16/18 12:00 45 02/16/18 10:00 74 02/16/18 08:16 100 45 02/16/18 08:00 98.6 69 20 136/62 (86) 100 133/42 (72) 02/16/18 08:00 45 02/16/18 08:00 69 02/16/18 06:00 68 02/16/18 04:24 100 45 02/16/18 04:00 72 02/16/18 04:00 98.1 72 20 134/61 (85) 100 134/43 (73) 02/16/18 04:00 72 134/43 02/16/18 04:00 45 02/16/18 02:40 86 129/41 02/16/18 02:30 93 143/47 02/16/18 02:20 101 145/46 5/8/18 02:10 91 145/48 02/16/18 02:00 99 02/16/18 02:00 99 145/48 02/16/18 00:06 99 45 02/16/18 00:00 45 02/16/18 00:00 83 02/16/18 00:00 142 117/46 02/16/18 00:00 100.0 142 20 117/46 (69) 99 02/15/18 22:40 96 135/48 02/15/18 22:30 109 137/49 02/15/18 22:20 95 131/46 02/15/18 22:10 96 132/47 02/15/18 22:00 94 02/15/18 22:00 95 133/47 02/15/18 21:26 99 45 02/15/18 20:00 98.7 78 20 121/48 (72) 99 02/15/18 20:00 45 02/15/18 20:00 78 121/48 02/15/18 20:00 78 02/15/18 19:00 78 121/48 02/16/18 02/17/18 19:00 07:00 Intake Total 60 ml Balance 60 ml Blood Product IV Normal Saline Flush 60 ml Exam CONSTITUTIONAL/GENERAL: This is an adequately nourished patient, intubated, sedated, in no apparent distress. TUBES/LINES/DRAINS: PIV, left jugular TLC, right radial art line, SKIN: No jaundice, rashes, or lesions. Ecchymoses on upper extremities. No wounds seen anteriorly. Skin temperature appropriate. Not diaphoretic. HEAD: Atraumatic. Normocephalic. EYES: Pupils equal and round and reactive. no scleral icterus. No injection or drainage. Fundi not examined. ENT: Nose without bleeding or purulent drainage. NECK: Trachea midline. Supple, nontender. No palpable thyroid enlargement or nodularity. CARDIOVASCULAR: S1, S2, mostly regular rhythm, controlled rate with occasional PACs. 2/6 systolic ejection murmur at the left sternal border. RESPIRATORY/CHEST: Lungs diminished, coarse breath sounds with bibasilar crackles, occasional wheeze. GASTROINTESTINAL: Abdomen soft, nondistended. No hepato-splenomegaly, or palpable masses. No guarding. Bowel sounds present. GENITOURINARY: Without palpable bladder distension. Storey catheter in place. MUSCULOSKELETAL: Extremities without clubbing or cyanosis. 1+ dependent edema. No mottling or clubbing. LYMPHATICS: No palpable cervical or supraclavicular adenopathy. NEUROLOGICAL: Intubated, sedated, withdraws to minimal noxious stimuli on all extremities PSYCHIATRIC: Sedated. . Diagnostic Tests Laboratory Laboratory Tests Test 02/14/18 05:20 02/14/18 08:50 02/14/18 13:34 02/15/18 11:55 White Blood Count 11.5 TH/MM3 (4.0-11.0) 9.7 TH/MM3 (4.0-11.0) Red Blood Count 4.23 MIL/MM3 (4.00-5.30) 3.38 MIL/MM3 (4.00-5.30) Hemoglobin 8.8 GM/DL (11.6-15.3) 7.1 GM/DL (11.6-15.3) Hematocrit 29.3 % (35.0-46.0) 23.6 % (35.0-46.0) Mean Corpuscular Volume 69.3 FL (80.0-100.0) 69.8 FL (80.0-100.0) Mean Corpuscular Hemoglobin 20.9 PG (27.0-34.0) 21.1 PG (27.0-34.0) Mean Corpuscular Hemoglobin Concent 30.2 % (32.0-36.0) 30.3 % (32.0-36.0) Red Cell Distribution Width 22.4 % (11.6-17.2) 22.2 % (11.6-17.2) Platelet Count 345 TH/MM3 (150-450) 281 TH/MM3 (150-450) Mean Platelet Volume 7.7 FL (7.0-11.0) 7.6 FL (7.0-11.0) Neutrophils (%) (Auto) 74.9 % (16.0-70.0) 79.6 % (16.0-70.0) Lymphocytes (%) (Auto) 9.2 % (9.0-44.0) 8.3 % (9.0-44.0) Monocytes (%) (Auto) 13.0 % (0.0-8.0) 9.2 % (0.0-8.0) Eosinophils (%) (Auto) 2.0 % (0.0-4.0) 1.8 % (0.0-4.0) Basophils (%) (Auto) 0.9 % (0.0-2.0) 1.1 % (0.0-2.0) Neutrophils # (Auto) 8.6 TH/MM3 (1.8-7.7) 7.7 TH/MM3 (1.8-7.7) Lymphocytes # (Auto) 1.1 TH/MM3 (1.0-4.8) 0.8 TH/MM3 (1.0-4.8) Monocytes # (Auto) 1.5 TH/MM3 (0-0.9) 0.9 TH/MM3 (0-0.9) Eosinophils # (Auto) 0.2 TH/MM3 (0-0.4) 0.2 TH/MM3 (0-0.4) Basophils # (Auto) 0.1 TH/MM3 (0-0.2) 0.1 TH/MM3 (0-0.2) CBC Comment DIFF FINAL DIFF FINAL Differential Comment Prothrombin Time 11.3 SEC (9.8-11.6) Prothromb Time International Ratio 1.1 RATIO Activated Partial Thromboplast Time 30.8 SEC (24.3-30.1) Blood Urea Nitrogen 34 MG/DL (7-18) 33 MG/DL (7-18) Creatinine 2.43 MG/DL (0.50-1.00) 2.51 MG/DL (0.50-1.00) Random Glucose 91 MG/DL (74-106) 95 MG/DL (74-106) Calcium Level 8.6 MG/DL (8.5-10.1) 8.2 MG/DL (8.5-10.1) Magnesium Level 2.6 MG/DL (1.5-2.5) Sodium Level 138 MEQ/L (136-145) 141 MEQ/L (136-145) Potassium Level 3.4 MEQ/L (3.5-5.1) 3.3 MEQ/L (3.5-5.1) Chloride Level 101 MEQ/L (98-107) 103 MEQ/L (98-107) Carbon Dioxide Level 27.4 MEQ/L (21.0-32.0) 29.1 MEQ/L (21.0-32.0) Anion Gap 10 MEQ/L (5-15) 9 MEQ/L (5-15) Estimat Glomerular Filtration Rate 19 ML/MIN (>89) 18 ML/MIN (>89) Total Creatine Kinase 45 U/L (26-192) Troponin I LESS THAN 0.02 NG/ML B-Type Natriuretic Peptide 369 PG/ML (0-100) Urine Color LIGHT-YELLOW (YELLW/STRAW) Urine Turbidity CLEAR (CLEAR) Urine pH 5.5 (5.0-8.5) Urine Specific [place] 1.008 (1.002-1.035) Urine Protein NEG mg/dL (NEG-TRACE) Urine Glucose (UA) NEG mg/dL (NEG) Urine Ketones NEG mg/dL (NEG) Urine Occult Blood TRACE (NEG) Urine Nitrite NEG (NEG) Urine Bilirubin NEG (NEG) Urine Urobilinogen LESS THAN 2.0 MG/DL (LESS Urine Leukocyte Esterase LARGE (NEG) Urine RBC 2 /hpf (0-3) Urine WBC 43 /hpf (0-5) Urine Squamous Epithelial Cells <1 /hpf (0-5) Urine Bacteria FEW /hpf (NONE) Urine Hyaline Casts 2 /lpf (RARE) Urine Mucus FEW /lpf (OCC) Microscopic Urinalysis Comment CULTURE INDICATED Test 02/15/18 12:55 02/15/18 14:08 02/15/18 15:40 02/15/18 16:55 Blood Urea Nitrogen 34 MG/DL (7-18) Creatinine 2.42 MG/DL (0.50-1.00) Random Glucose 159 MG/DL (74-106) Total Protein 7.0 GM/DL (6.4-8.2) Albumin 3.4 GM/DL (3.4-5.0) Calcium Level 8.4 MG/DL (8.5-10.1) Alkaline Phosphatase 88 U/L (45-117) Aspartate Amino Transf (AST/SGOT) 17 U/L (15-37) Alanine Aminotransferase (ALT/SGPT) 13 U/L (10-53) Total Bilirubin 0.5 MG/DL (0.2-1.0) Sodium Level 141 MEQ/L (136-145) Potassium Level 3.2 MEQ/L (3.5-5.1) Chloride Level 105 MEQ/L (98-107) Carbon Dioxide Level 27.9 MEQ/L (21.0-32.0) Anion Gap 8 MEQ/L (5-15) Estimat Glomerular Filtration Rate 19 ML/MIN (>89) Blood Gas Puncture Site ART LINE Blood Gas Patient Temperature 98.6 Blood Gas HCO3 24 mmol/L (22-26) Blood Gas Base Excess -2.4 mmol/L (-2-2) Blood Gas Oxygen Saturation 97 % (90-100) Arterial Blood pH 7.27 (7.380-7.420) Arterial Blood Partial Pressure CO2 53 mmHg (38-42) Arterial Blood Partial Pressure O2 294 mmHg (61-120) Arterial Blood Oxygen Content 10.5 Vol % (12.0-20.0) Arterial Blood Carboxyhemoglobin 1.6 % (0-4) Arterial Blood Methemoglobin 1.6 % (0-2) Blood Gas Hemoglobin 7.2 G/DL (12.0-16.0) Oxygen Delivery Device VENTILATOR Blood Gas Ventilator Setting PRVC/AC 550/18/5PEEP Blood Gas Inspired Oxygen 100 % Urine Color LIGHT-YELLOW (YELLW/STRAW) Urine Turbidity CLEAR (CLEAR) Urine pH 8.5 (5.0-8.5) Urine Specific [place] 1.013 (1.002-1.035) Urine Protein GREATER THAN 600 mg/dL Urine Glucose (UA) 150 mg/dL (NEG) Urine Ketones NEG mg/dL (NEG) Urine Occult Blood MOD (NEG) Urine Nitrite NEG (NEG) Urine Bilirubin NEG (NEG) Urine Urobilinogen LESS THAN 2.0 MG/DL (LESS Urine Leukocyte Esterase NEG (NEG) Urine RBC 110 /hpf (0-3) Urine WBC 1 /hpf (0-5) Urine Bacteria RARE /hpf (NONE) Urine Mucus FEW /lpf (OCC) Microscopic Urinalysis Comment CATH-CULTURE IND Nasal Screen MRSA (PCR) MRSA NOT DETECTED (NOT Test 02/15/18 17:20 02/16/18 03:15 Blood Gas Puncture Site ART LINE Blood Gas Patient Temperature 98.6 Blood Gas HCO3 22 mmol/L (22-26) Blood Gas Base Excess -1.6 mmol/L (-2-2) Blood Gas Oxygen Saturation 96 % (90-100) Arterial Blood pH 7.41 (7.380-7.420) Arterial Blood Partial Pressure CO2 36 mmHg (38-42) Arterial Blood Partial Pressure O2 131 mmHg (61-120) Arterial Blood Oxygen Content 10.0 Vol % (12.0-20.0) Arterial Blood Carboxyhemoglobin 1.7 % (0-4) Arterial Blood Methemoglobin 1.7 % (0-2) Blood Gas Hemoglobin 7.2 G/DL (12.0-16.0) Oxygen Delivery Device VENTILATOR Blood Gas Ventilator Setting [facility]/AC600/20/8PEEP Blood Gas Inspired Oxygen 60 % White Blood Count 10.9 TH/MM3 (4.0-11.0) Red Blood Count 3.40 MIL/MM3 (4.00-5.30) Hemoglobin 7.1 GM/DL (11.6-15.3) Hematocrit 23.2 % (35.0-46.0) Mean Corpuscular Volume 68.3 FL (80.0-100.0) Mean Corpuscular Hemoglobin 21.0 PG (27.0-34.0) Mean Corpuscular Hemoglobin Concent 30.7 % (32.0-36.0) Red Cell Distribution Width 22.8 % (11.6-17.2) Platelet Count 266 TH/MM3 (150-450) Mean Platelet Volume 7.6 FL (7.0-11.0) Neutrophils (%) (Auto) 95.9 % (16.0-70.0) Lymphocytes (%) (Auto) 2.5 % (9.0-44.0) Monocytes (%) (Auto) 1.5 % (0.0-8.0) Eosinophils (%) (Auto) 0.0 % (0.0-4.0) Basophils (%) (Auto) 0.1 % (0.0-2.0) Neutrophils # (Auto) 10.4 TH/MM3 (1.8-7.7) Lymphocytes # (Auto) 0.3 TH/MM3 (1.0-4.8) Monocytes # (Auto) 0.2 TH/MM3 (0-0.9) Eosinophils # (Auto) 0.0 TH/MM3 (0-0.4) Basophils # (Auto) 0.0 TH/MM3 (0-0.2) CBC Comment DIFF FINAL Differential Comment Blood Urea Nitrogen 32 MG/DL (7-18) Creatinine 2.32 MG/DL (0.50-1.00) Random Glucose 191 MG/DL (74-106) Calcium Level 8.3 MG/DL (8.5-10.1) Magnesium Level 2.3 MG/DL (1.5-2.5) Sodium Level 143 MEQ/L (136-145) Potassium Level 3.3 MEQ/L (3.5-5.1) Chloride Level 107 MEQ/L (98-107) Carbon Dioxide Level 26.6 MEQ/L (21.0-32.0) Anion Gap 9 MEQ/L (5-15) Estimat Glomerular Filtration Rate 20 ML/MIN (>89) Result Diagram: 02/16/18 0315 02/16/18 0315 Microbiology Microbiology Date/Time Source Procedure Growth Status 02/15/18 16:01 Blood Peripheral Aerobic Blood Culture - Preliminary NO GROWTH IN 1 DAY Resulted 02/15/18 16:01 Blood Peripheral Anaerobic Blood Culture - Preliminary NO GROWTH IN 1 DAY Resulted 02/15/18 15:54 Blood Peripheral Aerobic Blood Culture - Preliminary NO GROWTH IN 1 DAY Resulted 02/15/18 15:54 Blood Peripheral Anaerobic Blood Culture - Preliminary NO GROWTH IN 1 DAY Resulted 02/15/18 15:40 Urine Catheterized Urine Urine Culture - Preliminary NO GROWTH IN 24 HOURS. Resulted 02/14/18 08:50 Urine Clean Catch Urine Culture - Final NO GROWTH IN 48 HOURS. Complete Imaging Last Impressions Chest X-Ray 02/15/18 0000 Signed Impressions: Service Date/Time: Thursday, February 15, 2018 15:25 - CONCLUSION: 1. Improving aeration in the lung bases, particularly on the right. 2. Cardiomegaly with interstitial prominence characteristic of vascular congestion or failure. This does show interval improvement, however. 3. Stable position of life support tubes. Anibal Bernal MD . Procedures 02/15: Left IJ central line 02/15: Intubation 02/15: Right pigtail catheter for pleural effusion drainage . Patient/Family Conference Present at Family Conference: Spoke with her daughter Lisa telephone palliative care purpose and focus, as well as the items. Patient's clinical as well social, psychosocial, medical and surgical history. Listening was provided. She described her mother's recent quality of life and her dissatisfaction with that quality. Contact information was provided and discussed meeting in a.m. when family arrives. Family Conference Location: Telephone Issues Discussed: * Palliative care role, purpose, approach * Additional medical, psychosocial, and spiritual history * Patients general health, functional status, and cognitive changes in the months leading up to the current hospitalization * Patient/family understanding of the current medical problems * Patient/family understanding of prognosis * Patients goals of care as best understood from advance directives and/or conversations and/or values * Current medical treatment options and benefits/burdens of those options * Likely scenarios comparing ongoing aggressive care with a transition to comfort measures only * Questions answered to the best of my ability * Palliative care contact information provided Assessment and Plan Disease Oriented Problem List: (1) Pleural effusion on right (2) CHF (congestive heart failure) (3) Hypertension (4) Atrial fibrillation Symptom Scale: (1) Edema 0-10 Scale: 3 (Improving with treatment.) (2) Pain 0-10 Scale: 5 (Complained of pain in her legs due to the swelling.) (3) Dyspnea 0-10 Scale: Unable to quantify (Mechanically ventilated.) Pertinent Non-Medical Issues Psychosocial:Patient was born in the [place] where she was educated, and raised her family. She moved from [place] to [facility] in 1986. 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 She had 2 daughters, one last year. Her remaining daughter Lisa, resides in [place] and is the social support for her father, who is 94. Spiritual: She is of the Yazdanism satish. Legal: No issues noted. No issues noted. . Ethical issues impacting care: Important Contacts :Perry Veloz Daughter: Lisa Maciel , home . Prognosis Her prognosis is poor. She has very poor systolic heart function of less than 20% as well as 2 incompetent valves, both the tricuspid and mitral. She has a long smoking history with lung compromise which is now creating stress and decreased function in her kidneys. Presented with this picture of multisystem organ failure, the family does not wish to continue her aggressive care but has transitioned her to a DO NOT RESUSCITATE and DO NOT REINTUBATE status. Spontaneous breathing trials are planned for tomorrow if she remains stable but it is not felt that the patient will successfully extubate easily. Given her multisystem dysfunction, she is likely to have continued decline, complications and readmissions. Code Status: No Code Plan PLAN: Legal decision maker: Patient is not capacitated for decision-making as she is intubated and sedated. Per [place] statutes her Perry would be her healthcare proxy and is willing to serve as well as supported by their daughter , Lisa Maciel. Goals: Comfort oriented. CODE STATUS: DO NOT RESUSCITATE, DO NOT REINTUBATE SYMPTOMS: * Dyspnea: Multifactorial to include COPD, chronic systolic heart failure, severe mitral valve regurgitation and tricuspid valve regurgitation. This appears to be cardiorenal syndrome compromising her ability to balance and excrete fluid. She is currently mechanically ventilated. Per Dr. Infante, plans are for spontaneous breathing trials to start tomorrow. Family is aware of poor prognosis and have transitioned her goals to comfort. * Edema: Per family she had severe edema at home to the point of causing pain due to the stretching and pressure on her skin. At this time she is being diuresed via an IV Bumex drip and is diuresing well. She is currently wearing sequential compression devices which have decreased the lower extremity edema, but her feet remain edematous. She remains on a dobutamine drip for inotropic support to improve her response. No further recommendations at this time. * Pain: Her presenting complaint of pain was due to the excessive edema in her lower extremities. As that is coming under control, she is at risk for pain from other sources to include invasive tubes and lines, bedbound status, restraints and chronic medical illnesses. She is currently sedated on propofol , however does withdraw to mild noxious stimuli. As she has an allergy to morphine, she may be more tolerant of fentanyl or Dilaudid during sedation vacations/weaning. SUMMARY This is an 87-year-old female that has been declining functionally lately and developed severe edema, respiratory distress and came to the emergency room, now intubated and sedated. The patient had previously stated that she could not continue to live with her level of deficit and the family, in respect for her wishes, has made her a DO NOT RESUSCITATE, do not reintubate status. While the would wish to continue with spontaneous breathing trials at this time to see if she can extubate medically, they are unwilling to progress to more aggressive care. They may consider withdrawal of ventilator support if she does not wean. She would be hospice appropriate if goals were consistent. Palliative care will continue to follow the patient during hospital course as condition evolves, to assist patient/decision-maker with understanding of their medical conditions, weighing benefits/burdens of treatment options, for clarification of goals of treatment. Additionally will assist with any symptoms of palliative concern. . Thank you for the opportunity to participate in the care of Ms. Veloz. Lila Akhtar February 16, 2018 17:49
[2018-02-17] VITALS (17 sets, daily range): BP systolic 120–145; BP diastolic 44–63; PULSE 87–111; RESP 18–24; TEMP 98.1–99.3; O2SAT 95–100
[2018-02-17] MEDS: RESP: ALBUTEROL 2.5 MG/IPRATROPIUM 0.5 MG NEB (SCH) NEB ×5 (00:04→16:32)
[2018-02-17] MEDS: ALBUMIN 25% INJ 100 ML IV SCH ×2 (00:18→08:07)
[2018-02-17] MEDS: CEFEPIME INJ 1,000 MG in SODIUM CHLORIDE 0.9% INJ 100 ML IV SCH (02:38)
[2018-02-17] MEDS: PROPOFOL 1000 MG/100 ML INJ 100 ML IV PRN ×2 (02:39→06:20)
[2018-02-17] MEDS ORDERED: FUROSEMIDE 20 MG/2 ML VIAL IV PUSH ONE (03:00)
--- NOTE | 2018-02-17 04:33 | RADRPT ---
EXAM DATE/TIME: 02/17/2018 02:52 [facility] COMPARISON: CHEST SINGLE AP, February 15, 2018, 15:25. INDICATIONS : Short of breath. MEDICAL HISTORY : Myocardial infarction. Congestive heart failure. Hypercholesterolemia. SURGICAL HISTORY : Appendectomy. Cholecystectomy. ENCOUNTER: Subsequent ACUITY: 3 days PAIN SCORE: 0/10 LOCATION: Bilateral chest FINDINGS: A single view of the chest demonstrates bilateral perihilar vascular congestion. The endotracheal tub e, nasogastric tube and left IJ central venous catheter are in excellent position. There is no visibl e pneumothorax. There is suggestion of small bilateral pleural effusions. Right-sided pigtail cathete r overlies hemidiaphragm unchanged. The cardiomediastinal contours are unremarkable. Osseous struct ures are intact. CONCLUSION: Stable appearance the chest. Tubes and catheters in excellent position. Chauncey Jerry MD on February 17, 2018 at 4:31 Board Certified Radiologist. This report was verified electronically.
[2018-02-17 06:04] LABS: AUTOMATED NEUTROPHIL # 13.3 TH/MM3 (1.8-7.7); BASOPHIL % 0.1 % (0.0-2.0); HEMOGLOBIN 7.5 GM/DL (11.6-15.3); LYMPH % 1.9 % (9.0-44.0); LYMPHOCYTE # 0.3 TH/MM3 (1.0-4.8); MEAN CELL VOLUME 71.3 FL (80.0-100.0); MEAN CORPUSCULAR HEMOGLOBIN 22.2 PG (27.0-34.0); MEAN CORPUSCULAR HGB CONC 31.2 % (32.0-36.0); MEAN PLATELET VOLUME 7.9 FL (7.0-11.0); MONO % 5.8 % (0.0-8.0); MONOCYTE # 0.8 TH/MM3 (0-0.9); NEUT % 92.2 % (16.0-70.0); PLATELET COUNT 247 TH/MM3 (150-450); RED BLOOD COUNT 3.36 MIL/MM3 (4.00-5.30); WHITE BLOOD COUNT 14.4 TH/MM3 (4.0-11.0)
[2018-02-17 06:32] LABS: ALBUMIN 4.2 GM/DL (3.4-5.0); AST (GOT) 24 U/L (15-37); BICARBONATE 24.7 MEQ/L (21.0-32.0); BLOOD UREA NITROGEN 36 MG/DL (7-18); CALCIUM 8.6 MG/DL (8.5-10.1); CHLORIDE 109 MEQ/L (98-107); CREATININE 2.46 MG/DL (0.50-1.00); GLOMERULAR FILTRATION RATE 19 ML/MIN (>89); GLUCOSE,RANDOM 162 MG/DL (74-106); SODIUM (NA) 145 MEQ/L (136-145)
[2018-02-17 06:53] LABS: ALKALINE PHOSPHATASE 89 U/L (45-117); ALT (GPT) 24 U/L (10-53); TOTAL BILIRUBIN ADULT 0.8 MG/DL (0.2-1.0); TOTAL PROTEIN 6.8 GM/DL (6.4-8.2)
--- NOTE | 2018-02-17 07:42 | HHI.CCPN ---
Subjective Remarks/Hospital Course 02/15: Ms. 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 She was admitted to [facility] hospitalist on 02/14/18 for CHF exacerbation and acute worsening of chronic kidney disease. CXR noted a worsening right base infiltrate and effusion. Her WBC count was 11.5 at admission. Last echo on 12/09/17 showed Estimated ejection fraction less than 20%. Severe mitral valve regurgitation. Patient apparently received 40 mg of IV Lasix in the ED and was placed on 20 mg IV every 12 hours with potassium replacement. Today patient complained about acute worsening of shortness of breath and she suddenly became severely bradycardic. ACLS protocol was initiated patient was given 1 mg epinephrine IV push. Subsequently developed ventricular tachycardia requiring DC cardioversion 1. I arrived at the bedside and patient had a palpable radial pulse. Patient continued to show agonal breathing and with myself present at the bedside, respiratory therapist intubated on first attempt. Patient was emergently moved to the ICU where I reevaluated her. Chest x-ray showed bilateral pulmonary edema and right-sided effusion. Bedside ultrasound shows moderate to large right-sided effusion. I will plan on draining the effusion by the pigtail catheter. Patient placed on Bumex infusion. Also IV Solu-Medrol and scheduled breathing treatments. Cefepime for empiric coverage 02/16: Remains sedated, orally intubated on mechanical ventilation. On Bumex and dobutamine drips. 02/17: Remains on Bumex and dobutamine infusions. Urine output 2.5 L in 24 hours , right CT 470 ml in 24 hours. Creatinine slightly increased to 2.46. remains sedated with propofol-hold for CPAP trials. Objective Vital Signs Date Time Temp Pulse Resp B/P (MAP) Pulse Ox O2 Delivery O2 Flow Rate FiO2 02/17/18 07:25 100 40 02/17/18 06:00 93 02/17/18 04:00 98.5 20 120/57 (78) 127/51 (76) 02/15/18 12:34 Partial Non-Rebreather 15.00 Intake and Output 02/17/18 02/17/18 02/18/18 08:00 16:00 00:00 Intake Total 686 ml Output Total 1100 ml Balance -414 ml Result Diagram: 02/17/18 0345 02/17/18 0345 Other Results Microbiology Date/Time Source Procedure Growth Status 02/14/18 08:50 Urine Clean Catch Urine Culture - Final NO GROWTH IN 48 HOURS. Complete Imaging Last Impressions Chest X-Ray 02/15/18 0000 Signed Impressions: Service Date/Time: Thursday, February 15, 2018 15:25 - CONCLUSION: 1. Improving aeration in the lung bases, particularly on the right. 2. Cardiomegaly with interstitial prominence characteristic of vascular congestion or failure. This does show interval improvement, however. 3. Stable position of life support tubes. Anibal Bernal MD Objective Remarks GENERAL: Well-developed well-nourished elderly female intubated sedated with propofol SKIN: Warm and dry. Skin perfusion improved HEAD: Normocephalic. EYES: No scleral icterus. No injection or drainage. ENT: Orotracheally intubated. NECK: Supple, trachea midline. No JVD by limited exam CARDIOVASCULAR: Atrial fibrillation with RVR, no murmurs gallops, or rubs. Currently on dobutamine at 2.5 mcg/kg/min RESPIRATORY: Breath sounds equal bilaterally, but diminished at the bases. Very few coarse crackles bilaterally GASTROINTESTINAL: Abdomen soft, non-tender, nondistended. MUSCULOSKELETAL: bilateral lower extremity pitting edema. NEURO: Intubated sedated with propofol. Moves extremities spontaneously on his lightening sedation. Did not follow commands while on sedation A/P Assessment and Plan ASSESSMENT: Cardiac arrest/ventricular tachycardia Severe bradycardia Acute hypoxemic and hypercarbic respiratory failure Shock multifactorial, improving Acute exacerbation of systolic congestive heart failure Pulmonary edema Right-sided pleural effusion Acute on chronic kidney disease Atrial fibrillation with RVR Anemia Ischemic cardiomyopathy EF <20%, Severe MR Coronary artery disease COPD on home oxygen Hypertension PLAN: NEURO: -Propofol for sedation and vent synchrony. Hold for weaning trials -Daily sedation vacation RESP: -Acute respiratory decompensation secondary to CHF exacerbation and right pleural effusion -Continue mechanical ventilation, vent bundle. CPAP trial 02/13 with possible extubation -Right pigtail catheter in place draining 470 cc overnight. Being diuresed with Bumex gtt -DuoNeb every 4 hours scheduled and as needed -IV Solu-Medrol 60 every 12-reduce to 40 mg IV q12 -Cefepime for empiric antibiotics CV: -Dobutamine for inotropic support, reduce to 0.125 mcg/kg/min. Off Levophed -Chest x-ray shows improving pulmonary edema -On Bumex infusion along with potassium replacement and IV albumin -Overall prognosis guarded secondary to EF less than 20%, and severe mitral regurgitation -Continue PO amiodarone. Change to IV amiodarone as needed -Use digoxin if needed for rate control. Give 1 dose now -Anticoagulation was discontinued previously due to GI bleed GI: -Protonix -On tube feeds with glucerna-hold for weaning trials possible extubation : -Monitor renal function closely. Storey catheter. -Continue Bumex gtt at 0.5 mg/h with potassium replacement -Nephrology consult if worsening renal function ID: -Cefepime 1 g every 12 -Cultures negative to date HEME: -Monitor CBC, CMP -Anticoagulation was discontinued on this patient due to previous GI bleed ENDO: -Electrolyte replacement per protocol -Sliding scale insulin if needed PROPH: -Bilateral lower extremity SCDs. Heparin for DVT prophylaxis. Protonix for GI prophylaxis LINES: -Central line and arterial line placed in ICU 02/[address] Infante discussed current clinical status and plan of care with patient's family at bedside. Explained that patient is critical. DNR now. CC time 32 min excluding procedures Harmony Penny MD February 17, 2018 07:42
[2018-02-17] MEDS: CHLORHEXIDINE 0.12% (ORAL KIT) 15 ML CUP MT SCH (08:00)
[2018-02-17] MEDS ORDERED: DIGOXIN 0.5 MG/2 ML VIAL IV PUSH ONE (08:00)
[2018-02-17] MEDS: AMIODARONE 200 MG TAB PO SCH (08:07)
[2018-02-17] MEDS: POTASSIUM CHLORIDE 20 MEQ CONTROLLED RELEASE TAB PO SCH ×2 (08:07→21:00)
[2018-02-17] MEDS: PANTOPRAZOLE SOD 40 MG DELAYED RELEASE TAB PO SCH (08:07)
[2018-02-17] MEDS: INSULIN ASPART SUPPLEMENTAL SCALE SQ SCH ×4 (08:08→21:00)
[2018-02-17] MEDS: POTASSIUM CHLORIDE 20 MEQ PWD PACKET OG-TUBE SCH (09:00)
[2018-02-17] MEDS: methylPREDNISolone SOD SUCC 40 MG/1 ML VIAL IV PUSH SCH ×2 (09:34→22:42)
[2018-02-17] MEDS: SODIUM CHLORIDE 0.9% FLUSH 10 ML FLUSH IV FLUSH SCH (09:36)
--- NOTE | 2018-02-17 11:57 | HHI.HCPN ---
Reason for visit a. To assist with evaluation and management of symptoms including: Dyspnea, edema, pain b. To assist medical decision maker(s) with: better understanding of current medical conditions; weighing benefits/burdens of medical treatment options; making medical treatment decisions. Subjective/Interval History Patient seen today for dyspnea, edema and pain. She is complaining of pain in her legs and feet, similar to her presenting complaint. She states the leg pain is not as severe as when she came in, as her edema is improving with diuretics and sequential compression devices, however, her heels are painful from the pressure of lying on the bed. This was discussed with the nurse and a pillow was placed under the legs elevate the heels which relieved that discomfort, but she remains generally uncomfortable from her bedbound status and wrist restraints. She describes the discomfort at 5/10, aching in quality, constant in duration with some associated numbness In her hands. Her edema is improving with diuretics. She is on a Bumex drip at 0.5 mg/h and diuresed 2550 mL overnight. She has lost approximately 4 kg of weight since admission. She continues to have 2+ pitting edema in her feet bilaterally and 2 -3+ in her hands bilaterally. Her edema is generally constant, per my discussion with her daughter and causes pain due to the stretching of the skin and compression. This is improving with diuretics and leg elevation. She has chronic dyspnea with severe COPD on home oxygen and on admission was found to have a large right pleural effusion on admission. Output overnight was 470 mL of clear serous fluid via pigtail. No air leak is seen in the chest tube. Review of this a.m.'s x-ray shows significant improvement over admission x-ray, with improving aeration in the lung bases, particularly on the right. Cardiomegaly with interstitial prominence characteristic of vascular congestion or failure is noted but does show improvement. She was able to be extubated this morning and is saturating adequately on 3 L nasal cannula. She does have known severe tricuspid and mitral valve regurgitation, as well as in ejection fraction of less than 20%, compromising her dyspnea. She remains on low-dose dobutamine for inotropic support. This has been weaned since yesterday and she is tolerating well. . Family/friend interactions Spoke with patient's and daughter, Lisa, at bedside. Patient was awake and conversant, although slightly confused. She kept reiterating "let me ". Her daughter assured her that we were not going to interfere with the natural process, but were going to attend primarily to her comfort needs and her wish to be home with her of 70 years for as long as she can remain comfortable. Clinical conditions were discussed and questions answered. Options for discharge home were discussed to include private caregiver, home health or hospice. 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 She did wish to discuss hospice services and those were briefly reviewed, to include in- home visits, 24 hour access to care, after hours visits if needed, access to physicians/nurse practitioners and care center services if required. Hospice consult was placed to provide more information and establish contact. I discussed this with Feli Espinosa RN, hospice admission nurse and she will be visiting the patient today. . Advance Directives Living Will: Never completed Health Care Surrogate: Never completed Durable Power of Top And Trim Worker: Never completed Advance Directive Specifics Date completed: Not completed. . Health Care Surrogate(s): Not completed. . Documented care wishes: Not completed. . Significant change in goals: Hospice has been consulted today to provide information. No decisions have been made at this time. . Objective Vital Signs Date Time Temp Pulse Resp B/P (MAP) Pulse Ox O2 Delivery O2 Flow Rate FiO2 02/17/18 10:00 100 02/17/18 09:38 96 Nasal Cannula 3 02/17/18 08:00 100 02/17/18 08:00 99.0 100 20 128/62 (84) 100 128/50 (76) 02/17/18 08:00 40 02/17/18 07:45 40 02/17/18 07:45 40 02/17/18 07:25 100 40 02/17/18 06:00 93 02/17/18 04:37 98 35 02/17/18 04:00 98.5 95 20 120/57 (78) 100 127/51 (76) 02/17/18 04:00 95 02/17/18 04:00 45 02/17/18 02:00 111 02/17/18 00:00 45 02/17/18 00:00 99.3 88 20 137/58 (84) 99 129/44 (72) 02/17/18 00:00 87 02/16/18 23:59 100 35 02/16/18 22:00 106 02/16/18 20:45 100 40 02/16/18 20:00 98.9 92 20 134/62 (86) 99 127/44 (71) 02/16/18 20:00 45 02/16/18 20:00 92 02/16/18 18:00 89 02/16/18 17:16 98.9 86 21 131/42 100 02/16/18 16:32 100 45 02/16/18 16:27 98.7 89 21 130/42 100 02/16/18 16:00 99.0 99 21 133/60 (84) 100 125/45 (71) 02/16/18 16:00 99 02/16/18 16:00 45 02/16/18 15:44 98.5 95 21 130/41 100 02/16/18 14:25 45 02/16/18 14:00 75 02/16/18 12:00 100 45 02/16/18 12:00 74 02/16/18 12:00 98.8 74 19 154/66 (95) 98 112/45 (67) 02/16/18 12:00 45 Intake & Output 02/17/18 02/17/18 06:59 18:59 Intake Total 916 ml Output Total 1100 ml Balance -184 ml IV Total 630 ml Tube Feeding 286 ml Output Urine Total 850 ml Chest Tube Drainage Total 250 ml # Bowel Movements 0 Physical Exam CONSTITUTIONAL/GENERAL: This is an adequately nourished patient, up in bed nasal cannula TUBES/LINES/DRAINS: PIV, left jugular TLC, right radial art line, SKIN: No jaundice, rashes, or lesions. Ecchymoses on upper extremities. No wounds seen anteriorly. Skin temperature appropriate. Not diaphoretic. HEAD: Atraumatic. Normocephalic. EYES: Pupils equal and round and reactive. no scleral icterus. No injection. Minimal drainage from left eye noted. Fundi not examined. ENT: Nose without bleeding or purulent drainage. NECK: Trachea midline. Supple, nontender. No palpable thyroid enlargement or nodularity. CARDIOVASCULAR: S1, S2, mostly regular rhythm, controlled rate with occasional PACs. 2/6 systolic ejection murmur at the left sternal border. RESPIRATORY/CHEST: Lungs diminished, faint bibasilar crackles, no wheezes. GASTROINTESTINAL: Abdomen soft, nondistended. No hepato-splenomegaly, or palpable masses. No guarding. Bowel sounds present. GENITOURINARY: Without palpable bladder distension. Storey catheter in place. MUSCULOSKELETAL: Extremities without clubbing or cyanosis. 2+ dependent edema noted in hands and feet. Restraints. No mottling or clubbing. LYMPHATICS: No palpable cervical or supraclavicular adenopathy. NEUROLOGICAL: Alert, oriented to self, family, place. PSYCHIATRIC: Calm, cooperative . Diagnostic Tests Laboratory Laboratory Tests Test 02/14/18 13:34 02/15/18 11:55 02/15/18 12:55 02/15/18 14:08 Blood Urea Nitrogen 33 MG/DL (7-18) 34 MG/DL (7-18) Creatinine 2.51 MG/DL (0.50-1.00) 2.42 MG/DL (0.50-1.00) Random Glucose 95 MG/DL (74-106) 159 MG/DL (74-106) Calcium Level 8.2 MG/DL (8.5-10.1) 8.4 MG/DL (8.5-10.1) Sodium Level 141 MEQ/L (136-145) 141 MEQ/L (136-145) Potassium Level 3.3 MEQ/L (3.5-5.1) 3.2 MEQ/L (3.5-5.1) Chloride Level 103 MEQ/L (98-107) 105 MEQ/L (98-107) Carbon Dioxide Level 29.1 MEQ/L (21.0-32.0) 27.9 MEQ/L (21.0-32.0) Anion Gap 9 MEQ/L (5-15) 8 MEQ/L (5-15) Estimat Glomerular Filtration Rate 18 ML/MIN (>89) 19 ML/MIN (>89) White Blood Count 9.7 TH/MM3 (4.0-11.0) Red Blood Count 3.38 MIL/MM3 (4.00-5.30) Hemoglobin 7.1 GM/DL (11.6-15.3) Hematocrit 23.6 % (35.0-46.0) Mean Corpuscular Volume 69.8 FL (80.0-100.0) Mean Corpuscular Hemoglobin 21.1 PG (27.0-34.0) Mean Corpuscular Hemoglobin Concent 30.3 % (32.0-36.0) Red Cell Distribution Width 22.2 % (11.6-17.2) Platelet Count 281 TH/MM3 (150-450) Mean Platelet Volume 7.6 FL (7.0-11.0) Neutrophils (%) (Auto) 79.6 % (16.0-70.0) Lymphocytes (%) (Auto) 8.3 % (9.0-44.0) Monocytes (%) (Auto) 9.2 % (0.0-8.0) Eosinophils (%) (Auto) 1.8 % (0.0-4.0) Basophils (%) (Auto) 1.1 % (0.0-2.0) Neutrophils # (Auto) 7.7 TH/MM3 (1.8-7.7) Lymphocytes # (Auto) 0.8 TH/MM3 (1.0-4.8) Monocytes # (Auto) 0.9 TH/MM3 (0-0.9) Eosinophils # (Auto) 0.2 TH/MM3 (0-0.4) Basophils # (Auto) 0.1 TH/MM3 (0-0.2) CBC Comment DIFF FINAL Differential Comment Total Protein 7.0 GM/DL (6.4-8.2) Albumin 3.4 GM/DL (3.4-5.0) Alkaline Phosphatase 88 U/L (45-117) Aspartate Amino Transf (AST/SGOT) 17 U/L (15-37) Alanine Aminotransferase (ALT/SGPT) 13 U/L (10-53) Total Bilirubin 0.5 MG/DL (0.2-1.0) Blood Gas Puncture Site ART LINE Blood Gas Patient Temperature 98.6 Blood Gas HCO3 24 mmol/L (22-26) Blood Gas Base Excess -2.4 mmol/L (-2-2) Blood Gas Oxygen Saturation 97 % (90-100) Arterial Blood pH 7.27 (7.380-7.420) Arterial Blood Partial Pressure CO2 53 mmHg (38-42) Arterial Blood Partial Pressure O2 294 mmHg (61-120) Arterial Blood Oxygen Content 10.5 Vol % (12.0-20.0) Arterial Blood Carboxyhemoglobin 1.6 % (0-4) Arterial Blood Methemoglobin 1.6 % (0-2) Blood Gas Hemoglobin 7.2 G/DL (12.0-16.0) Oxygen Delivery Device VENTILATOR Blood Gas Ventilator Setting [facility]/AC 550/18/5PEEP Blood Gas Inspired Oxygen 100 % Test 02/15/18 15:40 02/15/18 16:55 02/15/18 17:20 02/16/18 03:15 Urine Color LIGHT-YELLOW (YELLW/STRAW) Urine Turbidity CLEAR (CLEAR) Urine pH 8.5 (5.0-8.5) Urine Specific [place] 1.013 (1.002-1.035) Urine Protein GREATER THAN 600 mg/dL Urine Glucose (UA) 150 mg/dL (NEG) Urine Ketones NEG mg/dL (NEG) Urine Occult Blood MOD (NEG) Urine Nitrite NEG (NEG) Urine Bilirubin NEG (NEG) Urine Urobilinogen LESS THAN 2.0 MG/DL (LESS Urine Leukocyte Esterase NEG (NEG) Urine RBC 110 /hpf (0-3) Urine WBC 1 /hpf (0-5) Urine Bacteria RARE /hpf (NONE) Urine Mucus FEW /lpf (OCC) Microscopic Urinalysis Comment CATH-CULTURE IND Nasal Screen MRSA (PCR) MRSA NOT DETECTED (NOT Blood Gas Puncture Site ART LINE Blood Gas Patient Temperature 98.6 Blood Gas HCO3 22 mmol/L (22-26) Blood Gas Base Excess -1.6 mmol/L (-2-2) Blood Gas Oxygen Saturation 96 % (90-100) Arterial Blood pH 7.41 (7.380-7.420) Arterial Blood Partial Pressure CO2 36 mmHg (38-42) Arterial Blood Partial Pressure O2 131 mmHg (61-120) Arterial Blood Oxygen Content 10.0 Vol % (12.0-20.0) Arterial Blood Carboxyhemoglobin 1.7 % (0-4) Arterial Blood Methemoglobin 1.7 % (0-2) Blood Gas Hemoglobin 7.2 G/DL (12.0-16.0) Oxygen Delivery Device VENTILATOR Blood Gas Ventilator Setting [facility]/600//8PEEP Blood Gas Inspired Oxygen 60 % White Blood Count 10.9 TH/MM3 (4.0-11.0) Red Blood Count 3.40 MIL/MM3 (4.00-5.30) Hemoglobin 7.1 GM/DL (11.6-15.3) Hematocrit 23.2 % (35.0-46.0) Mean Corpuscular Volume 68.3 FL (80.0-100.0) Mean Corpuscular Hemoglobin 21.0 PG (27.0-34.0) Mean Corpuscular Hemoglobin Concent 30.7 % (32.0-36.0) Red Cell Distribution Width 22.8 % (11.6-17.2) Platelet Count 266 TH/MM3 (150-450) Mean Platelet Volume 7.6 FL (7.0-11.0) Neutrophils (%) (Auto) 95.9 % (16.0-70.0) Lymphocytes (%) (Auto) 2.5 % (9.0-44.0) Monocytes (%) (Auto) 1.5 % (0.0-8.0) Eosinophils (%) (Auto) 0.0 % (0.0-4.0) Basophils (%) (Auto) 0.1 % (0.0-2.0) Neutrophils # (Auto) 10.4 TH/MM3 (1.8-7.7) Lymphocytes # (Auto) 0.3 TH/MM3 (1.0-4.8) Monocytes # (Auto) 0.2 TH/MM3 (0-0.9) Eosinophils # (Auto) 0.0 TH/MM3 (0-0.4) Basophils # (Auto) 0.0 TH/MM3 (0-0.2) CBC Comment DIFF FINAL Differential Comment Blood Urea Nitrogen 32 MG/DL (7-18) Creatinine 2.32 MG/DL (0.50-1.00) Random Glucose 191 MG/DL (74-106) Calcium Level 8.3 MG/DL (8.5-10.1) Magnesium Level 2.3 MG/DL (1.5-2.5) Sodium Level 143 MEQ/L (136-145) Potassium Level 3.3 MEQ/L (3.5-5.1) Chloride Level 107 MEQ/L (98-107) Carbon Dioxide Level 26.6 MEQ/L (21.0-32.0) Anion Gap 9 MEQ/L (5-15) Estimat Glomerular Filtration Rate 20 ML/MIN (>89) Test 02/17/18 03:45 White Blood Count 14.4 TH/MM3 (4.0-11.0) Red Blood Count 3.36 MIL/MM3 (4.00-5.30) Hemoglobin 7.5 GM/DL (11.6-15.3) Hematocrit 24.0 % (35.0-46.0) Mean Corpuscular Volume 71.3 FL (80.0-100.0) Mean Corpuscular Hemoglobin 22.2 PG (27.0-34.0) Mean Corpuscular Hemoglobin Concent 31.2 % (32.0-36.0) Red Cell Distribution Width 24.0 % (11.6-17.2) Platelet Count 247 TH/MM3 (150-450) Mean Platelet Volume 7.9 FL (7.0-11.0) Neutrophils (%) (Auto) 92.2 % (16.0-70.0) Lymphocytes (%) (Auto) 1.9 % (9.0-44.0) Monocytes (%) (Auto) 5.8 % (0.0-8.0) Eosinophils (%) (Auto) 0.0 % (0.0-4.0) Basophils (%) (Auto) 0.1 % (0.0-2.0) Neutrophils # (Auto) 13.3 TH/MM3 (1.8-7.7) Lymphocytes # (Auto) 0.3 TH/MM3 (1.0-4.8) Monocytes # (Auto) 0.8 TH/MM3 (0-0.9) Eosinophils # (Auto) 0.0 TH/MM3 (0-0.4) Basophils # (Auto) 0.0 TH/MM3 (0-0.2) CBC Comment DIFF FINAL Differential Comment Blood Urea Nitrogen 36 MG/DL (7-18) Creatinine 2.46 MG/DL (0.50-1.00) Random Glucose 162 MG/DL (74-106) Total Protein 6.8 GM/DL (6.4-8.2) Albumin 4.2 GM/DL (3.4-5.0) Calcium Level 8.6 MG/DL (8.5-10.1) Alkaline Phosphatase 89 U/L (45-117) Aspartate Amino Transf (AST/SGOT) 24 U/L (15-37) Alanine Aminotransferase (ALT/SGPT) 24 U/L (10-53) Total Bilirubin 0.8 MG/DL (0.2-1.0) Sodium Level 145 MEQ/L (136-145) Potassium Level 3.6 MEQ/L (3.5-5.1) Chloride Level 109 MEQ/L (98-107) Carbon Dioxide Level 24.7 MEQ/L (21.0-32.0) Anion Gap 11 MEQ/L (5-15) Estimat Glomerular Filtration Rate 19 ML/MIN (>89) Result Diagram: 02/17/18 0345 02/17/18 0345 Microbiology Microbiology Date/Time Source Procedure Growth Status 02/15/18 16:01 Blood Peripheral Aerobic Blood Culture - Preliminary NO GROWTH IN 2 DAYS Resulted 02/15/18 16:01 Blood Peripheral Anaerobic Blood Culture - Preliminary NO GROWTH IN 2 DAYS Resulted 02/15/18 15:54 Blood Peripheral Aerobic Blood Culture - Preliminary NO GROWTH IN 2 DAYS Resulted 02/15/18 15:54 Blood Peripheral Anaerobic Blood Culture - Preliminary NO GROWTH IN 2 DAYS Resulted 02/15/18 15:40 Urine Catheterized Urine Urine Culture - Final NO GROWTH IN 48 HOURS. Complete Imaging Last Impressions Chest X-Ray 02/17/18 0600 Signed Impressions: Service Date/Time: Saturday, February 17, 2018 02:52 - CONCLUSION: Stable appearance the chest. Tubes and catheters in excellent position. Chauncey Jerry MD Procedures 02/15: Left IJ central line 02/15: Intubation 02/15: Right pigtail catheter for pleural effusion drainage . Assessment and Plan Disease Oriented Problem List: (1) Pleural effusion on right (2) CHF (congestive heart failure) (3) Hypertension (4) Atrial fibrillation Symptom Scale: (1) Edema 0-10 Scale: 3 (Improving with treatment.) (2) Pain 0-10 Scale: 5 (Complained of pain in her legs due to the swelling.) (3) Dyspnea 0-10 Scale: Unable to quantify (Mechanically ventilated.) Pertinent Non-Medical Issues Psychosocial:Patient was born in the [place] where she was educated, and raised her family. She moved from [place] to [facility] in 1986. 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 She had 2 daughters, one last year. Her remaining daughter Lisa, resides in [place] and is the social support for her father, who is 94. Spiritual: She is of the Yazdanism satish. Legal: No issues noted. No issues noted. . Ethical issues impacting care: Important Contacts :Perry Veloz Daughter: Lisa Maciel , home . Prognosis Her prognosis is poor. She has very poor systolic heart function of less than 20% as well as 2 incompetent valves, both the tricuspid and mitral. She has a long smoking history with lung compromise which is now creating stress and decreased function in her kidneys. Presented with this picture of multisystem organ failure, the family does not wish to continue her aggressive care but has transitioned her to a DO NOT RESUSCITATE and DO NOT REINTUBATE status. Spontaneous breathing trials are planned for tomorrow if she remains stable but it is not felt that the patient will successfully extubate easily. Given her multisystem dysfunction, she is likely to have continued decline, complications and readmissions. Code Status: No Code Plan At this time. PLAN: Legal decision maker: Patient is not capacitated for decision-making as she is intubated and sedated. Per [place] statutes her , Perry, would be her healthcare proxy and is willing to serve as well as supported by their daughter, Lisa Maciel. Goals: Comfort oriented. CODE STATUS: DO NOT RESUSCITATE, DO NOT REINTUBATE SYMPTOMS: * Dyspnea: Multifactorial to include COPD, chronic systolic heart failure, severe mitral valve regurgitation and tricuspid valve regurgitation, right pleural effusion. This appears to be cardiorenal syndrome compromising her ability to balance and excrete fluid. Patient states that this is life limiting for her and compromising her quality of life beyond her tolerance. She remains on Bumex at 0.5 mg/h as well as dobutamine 1.25 mcg/kg/min for inotropic support. She is not significantly dyspneic at this evaluation and is on 3 L nasal cannula status post extubation. She does not wish to be reintubated and family agrees with these wishes. * Edema: Per family she had severe edema at home to the point of causing pain due to the stretching and pressure on her skin. At this time she is being diuresed via an IV Bumex drip and is diuresing well. She is currently wearing sequential compression devices which have decreased the lower extremity edema, but her feet and hands remain edematous, although improved from yesterday. She remains on a dobutamine drip for inotropic support to improve her response. No further recommendations at this time. * Pain: Her presenting complaint of pain was due to the excessive edema in her lower extremities. She remains edematous in her hands and feet, however, she states this morning that she is still having discomfort in her legs and feet. She was particularly uncomfortable with her feet resting on the mattress. This was relieved by elevating them on a pillow, however moving her legs to do that caused her discomfort. Family is considering hospice services for symptom management. NSAIDs may further compromise her fragile kidney status and given her age, fragility and risk for falls, would recommend tramadol PRN discomfort. Palliative care will continue to follow the patient during hospital course as condition evolves, to assist patient/decision-maker with understanding of their medical conditions, weighing benefits/burdens of treatment options, for clarification of goals of treatment. Additionally will assist with any symptoms of palliative concern. . Attestation To help prompt me to consider important information that might be impacting today's encounter and assessment, information from prior notes written by myself or my colleagues may have been "brought forward" into today's note. My signature on this note, however, is an attestation that I personally performed the exam, history, and/or decision-making noted today, and, unless otherwise indicated, the interactions with patient, family, and staff as well as the review of records all occurred today. I also attest that the listed assessment and stated plan reflect my best clinical judgment today based on the combination of historical information, prior notes, and today's exam/ interactions. When time spent is documented, it refers only to time spent today by the signer, or if indicated, combined time spent today by collaborating physician/nurse practitioner. . Lila Akhtar February 17, 2018 11:57 am
[2018-02-17] MEDS ORDERED: POTASSIUM CHLOR 40 MEQ PREMIX 100 ML IV ONE (15:15)
[2018-02-17] MEDS ORDERED: ACETAMINOPHEN 1000 MG/100 ML 65 ML IV PRN (15:45)
[2018-02-17] MEDS: FUROSEMIDE 40 MG/4 ML VIAL IV PUSH SCH (16:22)
[2018-02-17] MEDS: ACETAMINOPHEN 325 MG TAB PO PRN ×2 (18:46→23:22)
[2018-02-17] MEDS ORDERED: LORazepam 2 MG/ML VIAL ONE (22:38)
[2018-02-17] MEDS ORDERED: LORazepam 2 MG/ML VIAL IV PRN (23:15)
[2018-02-18] VITALS: BP 122/58; PULSE 80; RESP 17; TEMP 98.3; O2SAT 94
[2018-02-18] MEDS: MORPHINE SULFATE 4 MG/ML INJ IV PRN ×2 (00:14→10:28)
[2018-02-18] MEDS ORDERED: LORazepam 2 MG/ML VIAL IV PRN (00:15)
[2018-02-18] MEDS: RESP: ALBUTEROL 2.5 MG/IPRATROPIUM 0.5 MG NEB (SCH) NEB ×2 (00:45→08:29)
[2018-02-18 00:46] VITALS: O2SAT 97
[2018-02-18] MEDS: FUROSEMIDE 40 MG/4 ML VIAL IV PUSH SCH ×2 (01:00→10:22)
[2018-02-18] MEDS ORDERED: CEFEPIME INJ 1,000 MG in SODIUM CHLORIDE 0.9% INJ 100 ML IV SCH (02:00)
[2018-02-18 04:00] VITALS: BP 117/69; PULSE 73; PULSE 75; RESP 18; TEMP 97.4; O2SAT 94
[2018-02-18 08:00] VITALS: BP 147/63; PULSE 70; RESP 18; TEMP 97.7; O2SAT 96
[2018-02-18] MEDS: INSULIN ASPART SUPPLEMENTAL SCALE SQ SCH (08:00)
[2018-02-18 08:30] VITALS: O2SAT 93
[2018-02-18] MEDS: SODIUM CHLORIDE 0.9% FLUSH 10 ML FLUSH IV FLUSH SCH (09:00)
[2018-02-18] MEDS ORDERED: MORP4INJ3 IV (09:37)
--- NOTE | 2018-02-18 09:44 | HHI.DS ---
Discharge Summary Admission Date February 14, 2018 at 06:57 Discharge Date: February 18, 2018 Admitting Diagnosis dyspnea; chf; acute/chronic renal insufficiency; anemia (1) Acute combined systolic and diastolic congestive heart failure ICD Codes: I50.41 - Acute combined systolic (congestive) and diastolic ( congestive) heart failure Status: Resolved (2) Acute on chronic renal insufficiency ICD Codes: N28.9 - Disorder of kidney and ureter, unspecified; N18.9 - Chronic kidney disease, unspecified Status: Acute (3) Atrial fibrillation ICD Codes: I48.91 - Atrial fibrillation Status: Chronic (4) Anemia ICD Codes: D64.9 - Anemia, unspecified Status: Chronic (5) Hypertension ICD Codes: I10 - Hypertension Status: Acute (6) Hyperlipemia ICD Codes: E78.5 - Hyperlipemia Status: Acute Consultants Dr. Penny, ICU Dr. Hernandez, Palliative care Hospice Procedures none Brief History Ms. Veloz is a pleasant 87 y/o female with systolic/diastolic CHF with EF 20% (echo in 11/2017), paroxysmal atrial fibrillation, HTN, COPD, and CAD. [place] [facility] [place] with complaints of worsening LE edema and pain. She reports that she has been compliant with her Lasix 40mg po BID and potassium 20mg po BID but for the last few weeks has noted some increasing pedal edema. Then yesterday she noted that she began having increasing swelling in bilateral LE to the knees and had increasing pain in bilateral feet and LE. She was unable to stand up last night due to the pain and this prompted her to come to the ED for further evaluation. Pts labs at admission noted a slight worsening of her baseline CKD with creatinine 2.43/BUN 34 and GFR 19. Her BNP is 369. CXR noted a worsening right base infiltrate and effusion. Her WBC count was 11.5 at admission. She is chronically on 2L of supplemental O2 and denies any worsening SOB or cough. The patient has chronic 2 pillow orthopnea. She denies any PND. She has been off blood thinners due to GI bleed in November 2017. CBC/BMP: 02/17/18 0345 02/17/18 0345 Significant Findings Laboratory Tests Test 02/15/18 11:55 02/15/18 12:55 02/15/18 14:08 02/15/18 15:40 Red Blood Count 3.38 MIL/MM3 (4.00-5.30) Hemoglobin 7.1 GM/DL (11.6-15.3) Hematocrit 23.6 % (35.0-46.0) Mean Corpuscular Volume 69.8 FL (80.0-100.0) Mean Corpuscular Hemoglobin 21.1 PG (27.0-34.0) Mean Corpuscular Hemoglobin Concent 30.3 % (32.0-36.0) Red Cell Distribution Width 22.2 % (11.6-17.2) Neutrophils (%) (Auto) 79.6 % (16.0-70.0) Lymphocytes (%) (Auto) 8.3 % (9.0-44.0) Monocytes (%) (Auto) 9.2 % (0.0-8.0) Lymphocytes # (Auto) 0.8 TH/MM3 (1.0-4.8) Blood Urea Nitrogen 34 MG/DL (7-18) Creatinine 2.42 MG/DL (0.50-1.00) Random Glucose 159 MG/DL (74-106) Calcium Level 8.4 MG/DL (8.5-10.1) Potassium Level 3.2 MEQ/L (3.5-5.1) Estimat Glomerular Filtration Rate 19 ML/MIN (>89) Blood Gas Base Excess -2.4 mmol/L (-2-2) Arterial Blood pH 7.27 (7.380-7.420) Arterial Blood Partial Pressure CO2 53 mmHg (38-42) Arterial Blood Partial Pressure O2 294 mmHg (61-120) Arterial Blood Oxygen Content 10.5 Vol % (12.0-20.0) Blood Gas Hemoglobin 7.2 G/DL (12.0-16.0) Urine Protein GREATER THAN 600 mg/dL Urine Glucose (UA) 150 mg/dL (NEG) Urine Occult Blood MOD (NEG) Urine RBC 110 /hpf (0-3) Urine Bacteria RARE /hpf (NONE) Urine Mucus FEW /lpf (OCC) Test 02/15/18 16:55 02/15/18 17:20 02/16/18 03:15 02/17/18 03:45 Arterial Blood Partial Pressure CO2 36 mmHg (38-42) Arterial Blood Partial Pressure O2 131 mmHg (61-120) Arterial Blood Oxygen Content 10.0 Vol % (12.0-20.0) Blood Gas Hemoglobin 7.2 G/DL (12.0-16.0) Red Blood Count 3.40 MIL/MM3 (4.00-5.30) 3.36 MIL/MM3 (4.00-5.30) Hemoglobin 7.1 GM/DL (11.6-15.3) 7.5 GM/DL (11.6-15.3) Hematocrit 23.2 % (35.0-46.0) 24.0 % (35.0-46.0) Mean Corpuscular Volume 68.3 FL (80.0-100.0) 71.3 FL (80.0-100.0) Mean Corpuscular Hemoglobin 21.0 PG (27.0-34.0) 22.2 PG (27.0-34.0) Mean Corpuscular Hemoglobin Concent 30.7 % (32.0-36.0) 31.2 % (32.0-36.0) Red Cell Distribution Width 22.8 % (11.6-17.2) 24.0 % (11.6-17.2) Neutrophils (%) (Auto) 95.9 % (16.0-70.0) 92.2 % (16.0-70.0) Lymphocytes (%) (Auto) 2.5 % (9.0-44.0) 1.9 % (9.0-44.0) Neutrophils # (Auto) 10.4 TH/MM3 (1.8-7.7) 13.3 TH/MM3 (1.8-7.7) Lymphocytes # (Auto) 0.3 TH/MM3 (1.0-4.8) 0.3 TH/MM3 (1.0-4.8) Blood Urea Nitrogen 32 MG/DL (7-18) 36 MG/DL (7-18) Creatinine 2.32 MG/DL (0.50-1.00) 2.46 MG/DL (0.50-1.00) Random Glucose 191 MG/DL (74-106) 162 MG/DL (74-106) Calcium Level 8.3 MG/DL (8.5-10.1) Potassium Level 3.3 MEQ/L (3.5-5.1) Estimat Glomerular Filtration Rate 20 ML/MIN (>89) 19 ML/MIN (>89) White Blood Count 14.4 TH/MM3 (4.0-11.0) Chloride Level 109 MEQ/L (98-107) Imaging Last Impressions Chest X-Ray 02/17/18 0600 Signed Impressions: Service Date/Time: Saturday, February 17, 2018 02:52 - CONCLUSION: Stable appearance the chest. Tubes and catheters in excellent position. Chauncey Jerry MD PE at Discharge Chest: decreased air movement throughout cardiac:irregularly irregular Abd: +BS, soft ND/NT Ext: Bilateral LE edema Hospital Course Acute combined systolic and diastolic congestive heart failure Worsening LE edema - Pt is an 87 y/o female with systolic/diastolic CHF with EF less than 20% ( echo in 11/2017), paroxysmal atrial fibrillation, HTN, COPD, and CAD. - [place] [facility] [place] with complaints of worsening LE edema and pain. She reports that she has been compliant with her Lasix 40mg po BID and potassium 20mg po BID but for the last few weeks has noted some increasing pedal edema. Then yesterday she noted that she began having increasing swelling in bilateral LE to the knees and had increasing pain in bilateral feet and LE. - Pts labs at admission noted a slight worsening of her baseline CKD with creatinine 2.43/BUN 34 and GFR 19. Her BNP is 369. - CXR noted a worsening right base infiltrate and effusion. - She is chronically on 2L of supplemental O2 and denies any worsening SOB or cough. The patient has chronic 2 pillow orthopnea. She denies any PND. - Pt was give a dose of IV Lasix 40mg in the ED at 0500 on the morning of admission but was not urinating and required Storey placement on 02/14 for accurate I&Os and urinary retention - Diuresis was continued with IV Lasix 20mg BID and Albumin IV to be given prior to Lasix - Await repeat BMP for today - Get STAT repeat CXR - ABG stat - duonebs - SoluMedrol - Given Ativan 0.5mg IV now - Transferred to ICU 02/15/18 -Acute respiratory decompensation secondary to CHF exacerbation and right pleural effusion - intubated and sedated while in ICU also placed on Cefepime for empiric antibiotics -Right pigtail catheter in place draining 470 cc overnight. Being diuresed with Bumex gtt -Dobutamine for inotropic support, reduce to 0.125 mcg/kg/min. Off Levophed -Chest x-ray shows improving pulmonary edema -On Bumex infusion along with potassium replacement and IV albumin -Overall prognosis guarded secondary to EF less than 20%, and severe mitral regurgitation - Pt also with hx of COPD and there may be a component of COPD exacerbation as well as chf - I&Os - Daily weights - JOSIE hose/SCDs - Elevate legs Acute on chronic renal insufficiency - Labs at admission with worsening of her baseline CKD with creatinine 2.43/BUN 34 and GFR 19 - Repeat Cr of 2.51 on 02/14 - Await repeat labs this morning - Monitor labs daily Atrial fibrillation - Cont. Amiodarone 200mg po daily - Cont. Metoprolol 100mg po BID, has not been given duw to low BP. Will stop today - Telemetry Anemia - Pt with hx of GIB after she was disimpacted in the ED on 11/02/17 - Pt previously underwent evaluation with EGD/Colonoscopy (12/09/17) with Dr. 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 - GI recommended caution & minimal dosing with anticoagulants. - Xarelto has been on hold since her previous admission in December 2017. - No active bleeding currently - Monitor H/H closely Hypertension - BP is low normal, monitor during diuresis Hyperlipemia Chronic -Bilateral lower extremity SCDs. Heparin for DVT prophylaxis. Protonix for GI prophylaxis - Palliative care was consulted due to patient's poor prognosis - Hospice also consulted - Patient and family electing DNR comfort measures and discharge to hospice care center Pt Condition on Discharge: Deteriorating Discharge Disposition: Hospice/Med Facility Discharge Instructions DIET: Follow Instructions for: As Tolerated, No Restrictions Activities you can perform: Continue Bedrest New Medications: Morphine Sulfate (Morphine Sulfate) 4 Mg/Ml Inj 2 MG IV Q3H PRN for PAIN 1-10 for 5 Days, INJECTION Discontinued Medications: Amiodarone (Amiodarone) 200 Mg Tab 200 MG PO DAILY for A Fib, #30 TAB 0 Refills Furosemide (Lasix) 40 Mg Tab 40 MG PO BID, #60 TAB 0 Refills Take 40 mg in the morning and 40 mg around 2 PM. Metoprolol Tartrate (Metoprolol Tartrate) 100 Mg Tab 100 MG PO BID, #60 TAB 0 Refills Pantoprazole (Protonix) 40 Mg Tab 40 MG PO DAILY for Ulcer Prevention, #30 TAB 0 Refills Potassium Chloride ER (Potassium Chloride ER) 20 Meq Tab 20 MEQ PO BID for Electrolyte Replacement, #60 TAB 0 Refills Additional Information Further medications and follow up per Hospice Libra Lilly February 18, 2018 09:44
[2018-02-18] MEDS: PANTOPRAZOLE SOD 40 MG DELAYED RELEASE TAB PO SCH (10:22)
[2018-02-18] MEDS: methylPREDNISolone SOD SUCC 40 MG/1 ML VIAL IV PUSH SCH (10:22)
[2018-02-18] MEDS: POTASSIUM CHLORIDE 20 MEQ CONTROLLED RELEASE TAB PO SCH (10:22)
[2018-02-18] MEDS: AMIODARONE 200 MG TAB PO SCH (10:22)
--- NOTE | 2018-02-18 11:27 | HHI.DS ---
Discharge Summary Admission Date February 14, 2018 at 06:57 Admitting Diagnosis dyspnea; chf; acute/chronic renal insufficiency; anemia (1) Acute combined systolic and diastolic congestive heart failure ICD Codes: I50.41 - Acute combined systolic (congestive) and diastolic ( congestive) heart failure Status: Resolved (2) Acute on chronic renal insufficiency ICD Codes: N28.9 - Disorder of kidney and ureter, unspecified; N18.9 - Chronic kidney disease, unspecified Status: Acute (3) Atrial fibrillation ICD Codes: I48.91 - Atrial fibrillation Status: Chronic (4) Anemia ICD Codes: D64.9 - Anemia, unspecified Status: Chronic (5) Hypertension ICD Codes: I10 - Hypertension Status: Acute (6) Hyperlipemia ICD Codes: E78.5 - Hyperlipemia Status: Acute Procedures none Brief History Ms. Veloz is a pleasant 87 y/o female with systolic/diastolic CHF with EF 20% (echo in 11/2017), paroxysmal atrial fibrillation, HTN, COPD, and CAD. [place] [facility] [place] with complaints of worsening LE edema and pain. She reports that she has been compliant with her Lasix 40mg po BID and potassium 20mg po BID but for the last few weeks has noted some increasing pedal edema. Then yesterday she noted that she began having increasing swelling in bilateral LE to the knees and had increasing pain in bilateral feet and LE. She was unable to stand up last night due to the pain and this prompted her to come to the ED for further evaluation. Pts labs at admission noted a slight worsening of her baseline CKD with creatinine 2.43/BUN 34 and GFR 19. Her BNP is 369. CXR noted a worsening right base infiltrate and effusion. Her WBC count was 11.5 at admission. She is chronically on 2L of supplemental O2 and denies any worsening SOB or cough. The patient has chronic 2 pillow orthopnea. She denies any PND. She has been off blood thinners due to GI bleed in November 2017. CBC/BMP: 02/17/18 0345 02/17/18 0345 Significant Findings Laboratory Tests Test 02/15/18 11:55 02/15/18 12:55 02/15/18 14:08 02/15/18 15:40 Red Blood Count 3.38 MIL/MM3 (4.00-5.30) Hemoglobin 7.1 GM/DL (11.6-15.3) Hematocrit 23.6 % (35.0-46.0) Mean Corpuscular Volume 69.8 FL (80.0-100.0) Mean Corpuscular Hemoglobin 21.1 PG (27.0-34.0) Mean Corpuscular Hemoglobin Concent 30.3 % (32.0-36.0) Red Cell Distribution Width 22.2 % (11.6-17.2) Neutrophils (%) (Auto) 79.6 % (16.0-70.0) Lymphocytes (%) (Auto) 8.3 % (9.0-44.0) Monocytes (%) (Auto) 9.2 % (0.0-8.0) Lymphocytes # (Auto) 0.8 TH/MM3 (1.0-4.8) Blood Urea Nitrogen 34 MG/DL (7-18) Creatinine 2.42 MG/DL (0.50-1.00) Random Glucose 159 MG/DL (74-106) Calcium Level 8.4 MG/DL (8.5-10.1) Potassium Level 3.2 MEQ/L (3.5-5.1) Estimat Glomerular Filtration Rate 19 ML/MIN (>89) Blood Gas Base Excess -2.4 mmol/L (-2-2) Arterial Blood pH 7.27 (7.380-7.420) Arterial Blood Partial Pressure CO2 53 mmHg (38-42) Arterial Blood Partial Pressure O2 294 mmHg (61-120) Arterial Blood Oxygen Content 10.5 Vol % (12.0-20.0) Blood Gas Hemoglobin 7.2 G/DL (12.0-16.0) Urine Protein GREATER THAN 600 mg/dL Urine Glucose (UA) 150 mg/dL (NEG) Urine Occult Blood MOD (NEG) Urine RBC 110 /hpf (0-3) Urine Bacteria RARE /hpf (NONE) Urine Mucus FEW /lpf (OCC) Test 02/15/18 16:55 02/15/18 17:20 02/16/18 03:15 02/17/18 03:45 Arterial Blood Partial Pressure CO2 36 mmHg (38-42) Arterial Blood Partial Pressure O2 131 mmHg (61-120) Arterial Blood Oxygen Content 10.0 Vol % (12.0-20.0) Blood Gas Hemoglobin 7.2 G/DL (12.0-16.0) Red Blood Count 3.40 MIL/MM3 (4.00-5.30) 3.36 MIL/MM3 (4.00-5.30) Hemoglobin 7.1 GM/DL (11.6-15.3) 7.5 GM/DL (11.6-15.3) Hematocrit 23.2 % (35.0-46.0) 24.0 % (35.0-46.0) Mean Corpuscular Volume 68.3 FL (80.0-100.0) 71.3 FL (80.0-100.0) Mean Corpuscular Hemoglobin 21.0 PG (27.0-34.0) 22.2 PG (27.0-34.0) Mean Corpuscular Hemoglobin Concent 30.7 % (32.0-36.0) 31.2 % (32.0-36.0) Red Cell Distribution Width 22.8 % (11.6-17.2) 24.0 % (11.6-17.2) Neutrophils (%) (Auto) 95.9 % (16.0-70.0) 92.2 % (16.0-70.0) Lymphocytes (%) (Auto) 2.5 % (9.0-44.0) 1.9 % (9.0-44.0) Neutrophils # (Auto) 10.4 TH/MM3 (1.8-7.7) 13.3 TH/MM3 (1.8-7.7) Lymphocytes # (Auto) 0.3 TH/MM3 (1.0-4.8) 0.3 TH/MM3 (1.0-4.8) Blood Urea Nitrogen 32 MG/DL (7-18) 36 MG/DL (7-18) Creatinine 2.32 MG/DL (0.50-1.00) 2.46 MG/DL (0.50-1.00) Random Glucose 191 MG/DL (74-106) 162 MG/DL (74-106) Calcium Level 8.3 MG/DL (8.5-10.1) Potassium Level 3.3 MEQ/L (3.5-5.1) Estimat Glomerular Filtration Rate 20 ML/MIN (>89) 19 ML/MIN (>89) White Blood Count 14.4 TH/MM3 (4.0-11.0) Chloride Level 109 MEQ/L (98-107) PE at Discharge Chest: decreased air movement throughout cardiac:irregularly irregular Abd: +BS, soft ND/NT Ext: Bilateral LE edema Pt Condition on Discharge: Deteriorating Discharge Disposition: Hospice/Med Facility Discharge Instructions DIET: Follow Instructions for: As Tolerated, No Restrictions Activities you can perform: Continue Bedrest Braden Whipple DO February 18, 2018 11:27
== END 2018-02-18 12:35 | disposition hospice, inpatient (51) | DRG 291 ==
LOC: NEPC 04:01 → NEDA 06:57 → N04B 09:53 → HIMW 02-15 13:25 → N04B 02-17 19:55
PROVIDERS: ADMIT Hospitalist; ATTEND Hospitalist
PROC: 0W9930Z Drainage of Right Pleural Cavity with Drainage Device, Percutaneous Approach (ICD-10-PCS; principal; 2018-02-15)
PROC: 5A1945Z Respiratory Ventilation, 24-96 Consecutive Hours (ICD-10-PCS; 2018-02-15)
PROC: 02HV33Z Insertion of Infusion Device into Superior Vena Cava, Percutaneous Approach (ICD-10-PCS; 2018-02-15)
PROC: 0BH17EZ Insertion of Endotracheal Airway into Trachea, Via Natural or Artificial Opening (ICD-10-PCS; 2018-02-15)
DX: I13.0 Hypertensive heart and chronic kidney disease with heart failure and stage 1 through stage 4 chronic kidney disease, or unspecified chronic kidney disease (principal); I50.43 Acute on chronic combined systolic (congestive) and diastolic (congestive) heart failure; R57.9 Shock, unspecified; J96.01 Acute respiratory failure with hypoxia; J96.02 Acute respiratory failure with hypercapnia; N17.9 Acute kidney failure, unspecified; J44.1 Chronic obstructive pulmonary disease with (acute) exacerbation; I47.2 Ventricular tachycardia; K92.2 Gastrointestinal hemorrhage, unspecified; Z99.81 Dependence on supplemental oxygen; I25.5 Ischemic cardiomyopathy; I25.10 Atherosclerotic heart disease of native coronary artery without angina pectoris; I46.9 Cardiac arrest, cause unspecified; R00.1 Bradycardia, unspecified; I08.1 Rheumatic disorders of both mitral and tricuspid valves; I48.0 Paroxysmal atrial fibrillation; N18.9 Chronic kidney disease, unspecified; I48.2 Chronic atrial fibrillation; D64.9 Anemia, unspecified; I25.2 Old myocardial infarction; E78.5 Hyperlipidemia, unspecified; K21.9 Gastro-esophageal reflux disease without esophagitis; K62.1 Rectal polyp; K63.5 Polyp of colon; Z85.828 Personal history of other malignant neoplasm of skin; I08.0 Rheumatic disorders of both mitral and aortic valves; K55.20 Angiodysplasia of colon without hemorrhage; Z51.5 Encounter for palliative care; Z66 Do not resuscitate; R33.9 Retention of urine, unspecified; R53.1 Weakness; Z78.1 Physical restraint status; Z90.49 Acquired absence of other specified parts of digestive tract; Z87.891 Personal history of nicotine dependence
CPT/HCPCS: 31500; 36430; 36620; 71045; 80048; 80053; 81001; 82550; 82805; 82948; 83735; 83880; 84484; 85025; 85610; 85730; 86850; 86900; 86901; 86920; 87015; 87040; 87086; 87641; 93005; 94002; 94003; 94150; 94640; 94664; 96374; J0131; J0692; J1160; J1250; J1815; J1940; J2060; J2250; J2270; J2405; J2920; J2930; J3480; J7050; J7060; P9016; P9047